=== PATIENT | female | born 1975 | race Caucasian/White ===

== ENCOUNTER → 2017-04-03 | Outpatient (CLI) | payer OTHER ==
[~2017-04-03] MED LIST: CHOL2000 PO; CIPR500T4 PO; CYAN250010 PO; DOCU-238 PO; EST.625T PO; EST30C VG; ESTR0.62 PO; FERR-84 PO; HYDR-3816 PO; MECL-124 PO; METR500T21 PO; OMEP20CA12 PO; ONDA8TAB13 PO; PARO20TA5 PO; PAXIL; PRM25T PO; RT-ALBUINH IH
--- NOTE | 2017-04-06 18:46 | Diagnostic Imaging Report ---
Bilateral screening mammogram. The current study was also evaluated with a Computer Aided Detection (CAD) system. INDICATION: Screening. No current complaints stated on the questionnaire. COMPARISON: 04/16/15 FINDINGS: The breasts are composed of scattered fibroglandular densities. There is no mass, architectural distortion or suspicious cluster of calcification. Allowing for technique and positional differences, no suspicious change is seen. IMPRESSION: No significant change. ACR BI-RADS Category 2: Benign findings. Result letter will be mailed to the patient. Note: At least 10% of breast cancer is not imaged by mammography. Dictated by: Dictated on workstation # [id number]
== END ==
LOC: RAD 11:22
PROVIDERS: ATTEND Nurse Practitioner Family
DX: Z12.31 Encounter for screening mammogram for malignant neoplasm of breast (principal)
CPT/HCPCS: 77067

== ENCOUNTER 2018-04-09 18:41 | Observation (INO) | payer SELFPAY ==
[~2018-04-09] VITALS: Ht 170.2 cm; Wt 81.4 kg
[~2018-04-09 18:41] MED LIST changes: +HYDR-34 PO; -HYDR-3816 PO
--- OUTSIDE RECORDS SUMMARY | 2018-04-09 18:46 | XMS REPORT ---
Author NYLA Murillo [facility] eClinicalWorks Address Unknown Phone Unavailable Care Team Providers Care Space Technologist Name Role Phone NYLA BROWN CP Unavailable Allergies, Adverse Reactions, Alerts Substance Reaction Event Type N.K.D.A. Info Not Available Non Drug Allergy Problems Problem Type Condition Code Onset Dates Condition Status Problem Difficulty sleeping 780.50 Active Problem Chest tightness 786.59 Active Problem Abnormal glucose measurement 790.29 Active Problem Posttraumatic stress disorder 309.81 Active Assessment Bronchitis J40 Active Medications Medication Code System Code Instructions Start Date End Date Status Dosage Zithromax Z-Sergei [facility] [address]-03 250 MG Orally Once a day Oct 09, 2015 Oct 14, 2015 2 tablets on the first day, then 1 tablet daily for 4 days Omeprazole [facility] [address]-34 20 MG Orally Once a day April 30, 2015 1 capsule Vitamin D [facility] [address]-84 2000 UNIT Orally Once a day 1 tablet ProAir HFA [facility] [address]-16 108 (90 Base) MCG/ACT Inhalation every 4 hrs prn cough or wheeze Oct 09, 2015 2 puffs as needed Paxil [facility] [address]-52 20 MG Orally Once a day 1 tablet in the morning Vitamin B12 [facility] [address]-02 not defined Stool Softener [facility] [address]-33 100 MG Orally Once a day 1 capsule as needed Iron [facility] [address]90 325 (65 Fe) MG Orally Once a day 1 tablet Premarin [facility] [address]-94 0.625 MG/GM Vaginal April 05, 2015 as directed Procedures Procedure Coding System Code Date Office Visit, Est Pt., Level 3 CPT-4 46213 Oct 09, 2015 SOLUMEDROL (UP TO 125 MG) CPT-4 J2930 Oct 09, 2015 MEASURE BLOOD OXYGEN LEVEL CPT-4 61189 Oct 09, 2015 THER/PROPH/DIAG INJ, SC/IM CPT-4 16974 Oct 09, 2015 Vital Signs Date/Time: Oct 09, 2015 Temperature 97.6 F Weight 190 lbs Height 57 in Oximetry 99 % Blood Pressure Diastolic 80 mmHg Blood Pressure Systolic 118 mmHg Cardiac Monitoring Heart Rate 76 bpm BMI 41.11 Index Results No Known Results Summary Purpose eClinicalWorks Submission
--- OUTSIDE RECORDS SUMMARY | 2018-04-09 18:46 | XMS REPORT ---
Author Author TRAVIS HUIZAR [facility] eClinicalWorks Address Unknown Phone Unavailable Care Team Providers Care Infrastructure Consultant Name Role Phone TRAVIS HUIZAR CP Unavailable Allergies No Known Allergies Problems Problem Type Condition Code Onset Dates Condition Status Problem Difficulty sleeping 780.50 Active Problem Chest tightness 786.59 Active Problem Abnormal glucose measurement 790.29 Active Problem Posttraumatic stress disorder 309.81 Active Medications No Known Medications Results No Known Results Summary Purpose eClinicalWorks Submission
--- OUTSIDE RECORDS SUMMARY | 2018-04-09 18:46 | XMS REPORT ---
Author Author KAYLA CURTIS [facility] eClinicalWorks Address Unknown Phone Unavailable Care Team Providers Care Gun Numberer Name Role Phone KAYLA CURTIS CP Unavailable Allergies, Adverse Reactions, Alerts Substance Reaction Event Type N.K.D.A. Info Not Available Non Drug Allergy Problems Problem Type Condition Code Onset Dates Condition Status Problem Difficulty sleeping 780.50 Active Problem Chest tightness 786.59 Active Problem Abnormal glucose measurement 790.29 Active Problem Posttraumatic stress disorder 309.81 Active Assessment Dental examination Z01.20 Active Medications Medication Code System Code Instructions Start Date End Date Status Dosage Vitamin B12 [facility] [address]-50 not defined Paxil [facility] [address]-70 20 MG Orally Once a day 1 tablet in the morning Stool Softener [facility] [address]-14 100 MG Orally Once a day 1 capsule as needed Iron [facility] [address]87 325 (65 Fe) MG Orally Once a day 1 tablet Vitamin D [facility] [address]-15 2000 UNIT Orally Once a day 1 tablet Premarin [facility] [address]-02 0.625 MG/GM Vaginal April 05, 2015 as directed Procedures Procedure Coding System Code Date COMP ORAL EVALUATION - NEW/EST PT CPT-4 D0150 Sep 03, 2015 Vital Signs Date/Time: Sep 03, 2015 Blood Pressure Diastolic 78 mmHg Blood Pressure Systolic 119 mmHg Height 57 in Results No Known Results Summary Purpose eClinicalWorks Submission
--- OUTSIDE RECORDS SUMMARY | 2018-04-09 18:46 | XMS REPORT ---
Author Author TRAVIS HUIZAR [facility] eClinicalWorks Address Unknown Phone Unavailable Care Team Providers Care Broom Man Name Role Phone TRAVIS HUIZAR Unavailable Allergies, Adverse Reactions, Alerts Substance Reaction Event Type N.K.D.A. Info Not Available Non Drug Allergy Problems Problem Type Condition Code Onset Dates Condition Status Assessment Myalgia M79.1 Active Assessment Migraine without status migrainosus, not intractable, unspecified migraine type G43.909 Active Problem Dysthymia F34.1 Active Problem Post-menopausal Z78.0 Active Problem Migraine without status migrainosus, not intractable, unspecified migraine type G43.909 Active Problem Myalgia M79.1 Active Assessment Arthralgia, unspecified joint M25.50 Active Problem History of anemia Z86.2 Active Problem Arthralgia, unspecified joint M25.50 Active Medications Medication Code System Code Instructions Start Date End Date Status Dosage Paxil [facility] [address]-01 20 mg Orally Once a day 1 tablet in the morning Premarin [facility] [address]-41 0.625 MG/GM Vaginal as directed Iron [facility] [address]42-[address]15 325 (65 Fe) MG Orally Once a day 1 tablet Vitamin D [facility] [address]-72 2000 UNIT Orally Once a day 2 tablet Stool Softener [facility] [address]-24 100 MG Orally Once a day 1 capsule as needed Vitamin B12 [facility] [address]-57 not defined Zofran [facility] [address]-55 8 MG Orally every 8 hours prn nausea Jun 24, 2016 1 tablet Baclofen [facility] [address]-01 20 MG Orally 3 times a day Jul 22, 2016 1 tablet with food or milk as needed Procedures Procedure Coding System Code Date TORADOL (IM) 60 MG/2ML (UP TO 15 MG) CPT-4 J1885 Jun 24, 2016 THER/PROPH/DIAG INJ, SC/IM CPT-4 03938 Jun 24, 2016 Office Visit, Est Pt., Level 5 CPT-4 42793 Jun 24, 2016 Vital Signs Date/Time: Jun 24, 2016 Cardiac Monitoring Heart Rate 74 bpm Weight 188.9 lbs Height 57 in BMI 40.87 Index Blood Pressure Diastolic 84 mmHg Blood Pressure Systolic 132 mmHg Results No Known Results Summary Purpose eClinicalWorks Submission
--- OUTSIDE RECORDS SUMMARY | 2018-04-09 18:46 | XMS REPORT ---
Author Author TRAVIS HUIZAR [facility] Address [address] [place] [address] Care Team Providers Care Nuclear Security Officer Name Role Phone TRAVIS HUIZAR Unavailable PROBLEMS Type Condition ICD9-CM Code [id number] Code Onset Dates Condition Status SNOMED Code Problem Post-menopausal Z78.0 Active 97593693 Problem Vaginal dryness, menopausal N95.1 Active 22818150 Problem Migraine without status migrainosus, not intractable, unspecified migraine type G43.909 Active 38358251 Problem Dysthymia F34.1 Active 19121288 Problem Arthralgia, unspecified joint M25.50 Active 96148524 Problem History of anemia Z86.2 Active 549670990 Problem Myalgia M79.1 Active 88358187 ALLERGIES No Information SOCIAL HISTORY Never Assessed PLAN OF CARE VITAL SIGNS MEDICATIONS Medication Instructions Dosage Frequency Start Date End Date Duration Status Paxil 20 mg Orally Once a day 1 tablet in the morning 24h 22 days Active Amitriptyline HCl 25 MG Orally Once a day 1 tablet 24h 06 Jul, 2016 22 days Active RESULTS No Results PROCEDURES No Known procedures IMMUNIZATIONS No Known Immunizations MEDICAL (GENERAL) HISTORY Type Description Date Medical History PTSD Medical History anxiety Medical History mood disorder Medical History adjustment disorder Medical History diverticulosis Medical History iron deficiency anemia Medical History back pain Medical History Posttraumatic stress disorder Medical History Abnormal glucose measurement Surgical History hysterectomy 2006 Surgical History bowel surgery- cecoectomy 1993 Surgical History left knee arthroscopy
--- OUTSIDE RECORDS SUMMARY | 2018-04-09 18:47 | XMS REPORT ---
Author Author TRAVIS HUIZAR Organization eClinicalWorks Address Unknown Phone Unavailable Care Team Providers Care Vendor Quality Supervisor Name Role Phone TRAVIS HUIZAR CP Unavailable Allergies No Known Allergies Problems Problem Type Condition Code Onset Dates Condition Status Problem Post-menopausal Z78.0 Active Problem History of anemia Z86.2 Active Problem Dysthymia F34.1 Active Problem Arthralgia, unspecified joint M25.50 Active Problem Myalgia M79.1 Active Medications Medication Code System Code Instructions Start Date End Date Status Dosage Baclofen [facility] [address]-99 10 mg Orally 2 times a day Jun 05, 2016 1 tablet with food or milk as needed Results No Known Results Summary Purpose eClinicalWorks Submission
--- OUTSIDE RECORDS SUMMARY | 2018-04-09 18:47 | XMS REPORT ---
Author Author JON VELIZ [facility] Address [address] [place] [address] Care Team Providers Care Septic Tank Servicer Name Role Phone JON VELIZ Unavailable PROBLEMS Type Condition ICD9-CM Code [id number] Code Onset Dates Condition Status SNOMED Code Problem Post-menopausal Z78.0 Active 19795152 Problem Vaginal dryness, menopausal N95.1 Active 70315010 Problem Migraine without status migrainosus, not intractable, unspecified migraine type G43.909 Active 63918159 Problem Dysthymia F34.1 Active 84759299 Problem Arthralgia, unspecified joint M25.50 Active 04137076 Problem History of anemia Z86.2 Active 561579592 Problem Myalgia M79.1 Active 30578385 ALLERGIES No Known Allergies SOCIAL HISTORY Never Assessed PLAN OF CARE VITAL SIGNS Height 57 in 2017-03-18 Weight 189.6 lbs 2017-03-18 Temperature 96.6 degrees Fahrenheit 2017-03-18 Heart Rate 80 bpm 2017-03-18 Respiratory Rate 20 2017-03-18 BMI 41.02 kg/m2 2017-03-18 Blood pressure systolic 120 mmHg 2017-03-18 Blood pressure diastolic 80 mmHg 2017-03-18 MEDICATIONS Medication Instructions Dosage Frequency Start Date End Date Duration Status Baclofen 20 MG Orally every 8 hrs 1 tablet with food or milk 8h Active Vitamin B12 Active Vitamin D 2000 UNIT Orally Once a day 2 tablet 24h Active Premarin 0.625 MG/GM Vaginal 2-3 times a week administer 1 gram to vaginal mucosa Active Amoxicillin 500 mg Orally 3 times a day 1 capsule 8h March, March, 10 day(s) Active Amitriptyline HCl 25 MG Orally Once a day 1 tablet 24h Jul, 30 day(s) Active Stool Softener 100 MG Orally Once a day 1 capsule as needed 24h Active Iron 325 (65 Fe) MG Orally Once a day 1 tablet 24h Active Paxil 20 mg Orally Once a day 1 tablet in the morning 24h Active ProAir HFA 108 (90 Base) MCG/ACT Inhalation every 4 hrs 2 puffs as needed 4h Nov, 5 days Active RESULTS No Results PROCEDURES No Known procedures IMMUNIZATIONS No Known Immunizations MEDICAL (GENERAL) HISTORY Type Description Date Medical History PTSD Medical History anxiety Medical History mood disorder Medical History adjustment disorder Medical History diverticulosis Medical History iron deficiency anemia Medical History back pain Medical History Posttraumatic stress disorder Medical History Abnormal glucose measurement Surgical History hysterectomy 2005 Surgical History bowel surgery- cecoectomy 1993 Surgical History left knee arthroscopy
--- OUTSIDE RECORDS SUMMARY | 2018-04-09 18:47 | XMS REPORT ---
Author Author TRAVIS HUIZAR [facility] eClinicalWorks Address Unknown Phone Unavailable Care Team Providers Care Dinkey Skinner Name Role Phone TRAVIS HUIZAR CP Unavailable Allergies, Adverse Reactions, Alerts Substance Reaction Event Type N.K.D.A. Info Not Available Non Drug Allergy Problems Problem Type Condition Code Onset Dates Condition Status Assessment Myalgia M79.1 Active Problem Post-menopausal Z78.0 Active Problem History of anemia Z86.2 Active Problem Dysthymia F34.1 Active Assessment Post-menopausal Z78.0 Active Assessment Arthralgia, unspecified joint M25.50 Active Problem Arthralgia, unspecified joint M25.50 Active Problem Myalgia M79.1 Active Medications Medication Code System Code Instructions Start Date End Date Status Dosage Iron [facility] [address] 325 (65 Fe) MG Orally Once a day 1 tablet Stool Softener [facility] [address]-92 100 MG Orally Once a day 1 capsule as needed Vitamin B12 [facility] [address]-98 not defined Premarin [facility] [address]-48 0.625 MG/GM Vaginal as directed Baclofen [facility] [address]-12 10 mg Orally 3 times a day Jun 25, 2016 1 tablet with food or milk as needed Paxil [facility] [address]-13 20 mg Orally Once a day 1 tablet in the morning Vitamin D [facility] [address]-71 2000 UNIT Orally Once a day 2 tablet Procedures Procedure Coding System Code Date Office Visit, Est Pt., Level 3 CPT-4 59357 Jun 10, 2016 Vital Signs Date/Time: Jun 10, 2016 Cardiac Monitoring Heart Rate 72 bpm Weight 192.5 lbs Height 57 in BMI 41.65 Index Blood Pressure Diastolic 85 mmHg Blood Pressure Systolic 131 mmHg Results No Known Results Summary Purpose eClinicalWorks Submission
--- OUTSIDE RECORDS SUMMARY | 2018-04-09 18:47 | XMS REPORT ---
Author ARTURO Yi [facility] eClinicalWorks Address Unknown Phone Unavailable Care Team Providers Care Network Security Analyst Name Role Phone ARTURO BECKFORD CP Unavailable Allergies No Known Allergies Problems Problem Type Condition Code Onset Dates Condition Status Problem Difficulty sleeping 780.50 Active Problem Chest tightness 786.59 Active Problem Abnormal glucose measurement 790.29 Active Problem Posttraumatic stress disorder 309.81 Active Medications Medication Code System Code Instructions Start Date End Date Status Dosage Premarin [facility] [address]-53 0.625 MG/GM Vaginal April 05, 2015 as directed Results No Known Results Summary Purpose eClinicalWorks Submission
--- OUTSIDE RECORDS SUMMARY | 2018-04-09 18:47 | XMS REPORT ---
Author Author TRAVIS HUIZAR Organization [facility] Address [address] [place] [address] Care Team Providers Care Associate Technician Name Role Phone TRAVIS HUIZAR Unavailable PROBLEMS Type Condition ICD9-CM Code [id number] Code Onset Dates Condition Status SNOMED Code Problem Myalgia M79.1 Active 14928360 Problem Vaginal dryness, menopausal N95.1 Active 19038336 Problem Migraine without status migrainosus, not intractable, unspecified migraine type G43.909 Active 19717611 Problem History of anemia Z86.2 Active 024456340 Problem Arthralgia, unspecified joint M25.50 Active 58948991 Problem Dysthymia F34.1 Active 13103171 Problem Post-menopausal Z78.0 Active 58703315 ALLERGIES Substance Reaction Event Type Date Status N.K.D.A. Unknown Non Drug Allergy Oct, Unknown SOCIAL HISTORY No smoking Hx information available PLAN OF CARE Activity Details Follow Up 6 months for [facility], annual well woman exam Reason: VITAL SIGNS Height 57 in 2016-10-29 Weight 190 lbs 2016-10-29 Temperature 97.9 degrees Fahrenheit 2016-10-29 Heart Rate 80 bpm 2016-10-29 Respiratory Rate 16 2016-10-29 BMI 41.11 kg/m2 2016-10-29 Blood pressure systolic 112 mmHg 2016-10-29 Blood pressure diastolic 70 mmHg 2016-10-29 MEDICATIONS Medication Instructions Dosage Frequency Start Date End Date Duration Status Iron 325 (65 Fe) MG Orally Once a day 1 tablet 24h Active Vitamin D 2000 UNIT Orally Once a day 2 tablet 24h Active Premarin 0.625 MG/GM Vaginal 2-3 times a week administer 1 gram to vaginal mucosa Active Amitriptyline HCl 25 MG Orally Once a day 1 tablet 24h Jul, 30 day(s) Active Stool Softener 100 MG Orally Once a day 1 capsule as needed 24h Active Vitamin B12 Active Baclofen 20 MG Orally every 8 hrs 1 tablet with food or milk 8h Active Paxil 20 mg Orally Once a day 1 tablet in the morning 24h Active RESULTS Name Result Date Reference Range LIPID PANEL 2016-10-29 Cholesterol, Total 221 100-199 Triglycerides 125 0-149 HDL Cholesterol 86 >39 VLDL Cholesterol Eric 25 5-40 LDL Cholesterol Calc 110 0-99 Comment: CMP 2016-10-29 Glucose, Serum 90 65-99 BUN 17 6-24 Creatinine, Serum 0.79 0.57-1.00 eGFR If NonAfricn Am 93 >59 eGFR If Africn Am 107 >59 BUN/Creatinine Ratio 22 9-23 Sodium, Serum 141 134-144 Potassium, Serum 4.8 3.5-5.2 Chloride, Serum 100 96-106 Carbon Dioxide, Total 27 18-29 Calcium, Serum 10.0 8.7-10.2 Protein, Total, Serum 6.8 6.0-8.5 Albumin, Serum 4.5 3.5-5.5 Globulin, Total 2.3 1.5-4.5 A/G Ratio 2.0 1.1-2.5 Bilirubin, Total <0.2 0.0-1.2 Alkaline Phosphatase, S 81 39-117 AST (SGOT) 17 0-40 ALT (SGPT) 16 0-32 Mammogram, Bilateral Screening 2016-11-06 PROCEDURES Procedure Date Ordered Related Diagnosis Body Site LIPID PANEL Oct 29, 2016 COMPREHEN METABOLIC PANEL Oct 29, 2016 Office Visit, Est Pt., Level 3 Oct 29, 2016 TDAP (BOOSTRIX) Oct 29, 2016 VENIPUNCT, ROUTINE* Oct 29, 2016 Preventive Care Est Pt. Age 40-64 Oct 29, 2016 SINGLE IMMUNIZATION ADMIN Oct 29, 2016 IMMUNIZATIONS Vaccine Route Administration Date Status TDAP (BOOSTRIX) IM Intramuscular Oct 29, 2016 Administered
--- OUTSIDE RECORDS SUMMARY | 2018-04-09 18:47 | XMS REPORT ---
Author Author TRAVIS HUIZAR [facility] Address [address] [place] [address] Care Team Providers Care Glaze Handler Name Role Phone TRAVIS HUIZAR Unavailable PROBLEMS Type Condition ICD9-CM Code [id number] Code Onset Dates Condition Status SNOMED Code Problem Myalgia M79.1 Active 51891397 Problem Vaginal dryness, menopausal N95.1 Active 32283661 Problem Migraine without status migrainosus, not intractable, unspecified migraine type G43.909 Active 71745821 Problem History of anemia Z86.2 Active 457594995 Problem Arthralgia, unspecified joint M25.50 Active 23931213 Problem Dysthymia F34.1 Active 40403250 Problem Post-menopausal Z78.0 Active 46799579 ALLERGIES Unknown Allergies SOCIAL HISTORY No smoking Hx information available PLAN OF CARE VITAL SIGNS MEDICATIONS Unknown Medications RESULTS No Results PROCEDURES No Known procedures IMMUNIZATIONS No Known Immunizations
--- OUTSIDE RECORDS SUMMARY | 2018-04-09 18:47 | XMS REPORT ---
Author Author DANNY LEA [facility] eClinicalWorks Address Unknown Phone Unavailable Care Team Providers Care Certified Breastfeeding Educator Name Role Phone DANNY LEA CP Unavailable Allergies, Adverse Reactions, Alerts Substance Reaction Event Type N.K.D.A. Info Not Available Non Drug Allergy Problems Problem Type Condition Code Onset Dates Condition Status Problem Difficulty sleeping 780.50 Active Problem Chest tightness 786.59 Active Problem Abnormal glucose measurement 790.29 Active Problem Posttraumatic stress disorder 309.81 Active Assessment Encounter for dental examination Z01.20 Active Medications Medication Code System Code Instructions Start Date End Date Status Dosage Vitamin D [facility] [address]-80 2000 UNIT Orally Once a day 1 tablet Vitamin B12 [facility] [address]-92 not defined Premarin [facility] [address]-98 0.625 MG/GM Vaginal April 05, 2015 as directed Iron [facility] [address] 325 (65 Fe) MG Orally Once a day 1 tablet Stool Softener [facility] [address]-90 100 MG Orally Once a day 1 capsule as needed Paxil [facility] [address]-47 20 MG Orally Once a day 1 tablet in the morning Procedures Procedure Coding System Code Date INTRAORL-PERIAPICAL EA ADD FILM CPT-4 D0230 Aug 31, 2015 INTRAORL-PERIAPICAL EA ADD FILM CPT-4 D0230 Aug 31, 2015 INTRAORL-PERIAPICAL 1 FILM 83865 CPT-4 D0220 Aug 31, 2015 PANORAMIC FILM SEE ALSO CODE 87470 CPT-4 D0330 Aug 31, 2015 BITEWINGS - FOUR FILMS CPT-4 D0274 Aug 31, 2015 TOPICAL FLUORIDE VARNISH CPT-4 D1206 Aug 31, 2015 PROPHYLAXIS - ADULT CPT-4 D1110 Aug 31, 2015 Vital Signs Date/Time: Aug 31, 2015 Blood Pressure Diastolic 77 mmHg Blood Pressure Systolic 117 mmHg Results No Known Results Summary Purpose eClinicalWorks Submission
--- OUTSIDE RECORDS SUMMARY | 2018-04-09 18:47 | XMS REPORT ---
Author Author JON VELIZ Organization [facility] Address [address] [place] [address] Care Team Providers Care Marine Operations Coordinator Name Role Phone JON VELIZ Unavailable PROBLEMS Type Condition ICD9-CM Code [id number] Code Onset Dates Condition Status SNOMED Code Problem Post-menopausal Z78.0 Active 68088286 Problem Vaginal dryness, menopausal N95.1 Active 58790474 Problem Migraine without status migrainosus, not intractable, unspecified migraine type G43.909 Active 25665979 Problem Dysthymia F34.1 Active 19788234 Problem Arthralgia, unspecified joint M25.50 Active 90671231 Problem History of anemia Z86.2 Active 093914877 Problem Myalgia M79.1 Active 35123527 ALLERGIES No Known Allergies ENCOUNTERS Encounter Location Date Diagnosis [facility] [address] [address] Jan, [facility] [address] [address] Dec, Encounter for immunization Z23 [facility] [address] [place] [id number] [place] [address] Nov, Chondromalacia, right knee M94.261 [facility] [address] [id number] Nov, Encounter for dental examination Z01.20 [facility] [address] [address] Sep, Right anterior knee pain M25.561 and BMI 40.0-44.9, adult Z68.41 [facility] [id number] [place] [address] Apr, [facility] [place] [id number] [place] [address] 20 Apr, 2017 Skin tag L91.[address] [address] 15 Apr, 2017 Arthralgia, unspecified joint M25.50 ; Myalgia M79.1 ; Dysthymia F34.1 ; Post-menopausal Z78.0 and Tick bite, subsequent encounter W57.XXXD [address] [address] March, Myalgia M79.1 [facility] [address] [address] March, Pharyngitis due to other organism J02.8 [facility] [address] [address] Nov, Acute bronchitis, unspecified organism J20.9 [facility] [address] [address] Nov, Sore throat J02.[address] [address] Oct, [address] [address] Oct, Post-menopausal Z78.0 ; Vaginal dryness, menopausal N95.1 ; General medical exam Z00.00 ; Screening for breast cancer Z12.39 ; Benign skin lesion of lower back L98.9 ; Encounter for immunization Z23 and Routine gynecological examination Z01.[address] [address] Oct, [facility] [address] [address] Aug, Acute non-recurrent maxillary sinusitis J01.[address] [address] Jul, Myalgia M79.1 [facility] [id number] [place] [address] Jun, Arthralgia, unspecified joint M25.50 ; Myalgia M79.1 and Migraine without status migrainosus, not intractable, unspecified migraine type G43.909 [place] [address] [place] [id number] [place] [address] Jun, Arthralgia, unspecified joint M25.50 and Myalgia M79.1 [place] [address] [address] Jun, [place] [address] [address] Jun, Post-menopausal Z78.0 ; Arthralgia, unspecified joint M25.50 and Myalgia M79.1 [place] [address] [place] [id number] [place] [address] Jun, [place] [address] [place] [address] [id number] [place] [address] May, Dysthymia F34.1 ; Post-menopausal Z78.0 ; History of anemia Z86.2 ; Arthralgia, unspecified joint M25.50 and Myalgia M79.1 [facility] [id number] [place] [address] Apr, Low back pain M54.5 [place] [address] [place] [address] [id number] [place] [address] March, Lower abdominal pain R10.30 and Dysuria R30.0 [place] [address] [place] [address] [id number] [place] [address] Dec, [facility] [id number] [place] [address] Oct, Bronchitis J40 [place] [address] [place] [address] Sep, [facility] [id number] [place] [id number] Sep, Dental examination Z01.20 [facility] [id number] [place] [id number] Aug, Encounter for dental examination Z01.20 [facility] [address] [address] May, 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 [facility] [address] [address] May, [facility] [address] [id number]- [address] Apr, Abnormal glucose measurement 790.29 ; Difficulty sleeping 780.50 and Chest tightness 786.59 [place] [address] [address] Apr, Routine gynecological examination V72.31 ; Breast cancer screening V76.10 and Postmenopausal atrophic vaginitis 627.3 [place] [address] [place] [address] [id number] [place] [address] March, [facility] [address] [id number] [place] [address] March, Anemia 285.9 ; Cough 786.2 ; Snoring 786.09 ; Fatigue 780.79 and Upper respiratory infection 465.9 [facility] [id number] [place] [address] Dec, [facility] [address] [address] Dec, [facility] [address] [id number] Dec, [facility] [address] [address] Dec, [facility] [address] [facility] [id number] [address] 14 Oct, 2010 [facility] [address] [id number] [address] Oct, [facility] [address] [address] Oct, [facility] [address] [address] Sep, [facility] [address] [id number] [address] Sep, [facility] [address] [address] Sep, [facility] [address] [id number] [address] Aug, IMMUNIZATIONS No Known Immunizations SOCIAL HISTORY Never Assessed REASON FOR VISIT Lesion removal - Jaxon SLADE PLAN OF CARE VITAL SIGNS Height 57 in 2017-04-21 Weight 192.9 lbs 2017-04-21 Temperature 98.0 degrees Fahrenheit 2017-04-21 Heart Rate 80 bpm 2017-04-21 Respiratory Rate 18 2017-04-21 BMI 41.74 kg/m2 2017-04-21 Blood pressure systolic 120 mmHg 2017-04-21 Blood pressure diastolic 82 mmHg 2017-04-21 MEDICATIONS Medication Instructions Dosage Frequency Start Date End Date Duration Status Iron 325 (65 Fe) MG Orally Once a day 1 tablet 24h Active Vitamin D 2000 UNIT Orally Once a day 2 tablet 24h Active Vitamin B12 Active Paxil 20 mg Orally Once a day 1 tablet in the morning 24h 30 days Active Stool Softener 100 MG Orally Once a day 1 capsule as needed 24h Active Baclofen 20 mg Orally every 8 hrs 1 tablet with food or milk 8h Active Premarin 0.625 MG/GM Vaginal 2-3 times a week administer 1 gram to vaginal mucosa Active ProAir HFA 108 (90 Base) MCG/ACT Inhalation every 4 hrs 2 puffs as needed 4h Nov, 5 days Active Amitriptyline HCl 25 MG Orally Once a day 1 tablet 24h Jul, 30 days Active RESULTS No Results PROCEDURES Procedure Date Ordered Result Body Site SKIN TAG REM 1-15 2017-04-21 N/A REMOVAL OF SKIN TAGS April 21, 2017 INSTRUCTIONS MEDICATIONS ADMINISTERED No Known Medications MEDICAL (GENERAL) HISTORY Type Description Date Medical History PTSD Medical History anxiety Medical History mood disorder Medical History adjustment disorder Medical History diverticulosis Medical History iron deficiency anemia Medical History back pain Medical History Abnormal glucose measurement Surgical History hysterectomy 2006 Surgical History bowel surgery- cecoectomy 1993 Surgical History left knee arthroscopy
--- OUTSIDE RECORDS SUMMARY | 2018-04-09 18:48 | XMS REPORT ---
Author Author JON VELIZ [facility] Address [address] [place] [address] Care Team Providers Care Unit Tender Name Role Phone JON VELIZ Unavailable PROBLEMS Type Condition ICD9-CM Code [id number] Code Onset Dates Condition Status SNOMED Code Problem Post-menopausal Z78.0 Active 56064568 Problem Vaginal dryness, menopausal N95.1 Active 34377811 Problem Migraine without status migrainosus, not intractable, unspecified migraine type G43.909 Active 69368977 Problem Dysthymia F34.1 Active 95932850 Problem Arthralgia, unspecified joint M25.50 Active 17881444 Problem History of anemia Z86.2 Active 705755363 Problem Myalgia M79.1 Active 25653484 ALLERGIES Substance Reaction Event Type Date Status N.K.D.A. Unknown Non Drug Allergy Nov, Unknown SOCIAL HISTORY No smoking Hx information available PLAN OF CARE VITAL SIGNS Height 57 in 2016-11-19 Weight 190.4 lbs 2016-11-19 Temperature 97.4 degrees Fahrenheit 2016-11-19 Heart Rate 84 bpm 2016-11-19 Respiratory Rate 18 2016-11-19 BMI 41.20 kg/m2 2016-11-19 Blood pressure systolic 118 mmHg 2016-11-19 Blood pressure diastolic 76 mmHg 2016-11-19 MEDICATIONS Medication Instructions Dosage Frequency Start Date End Date Duration Status Baclofen 20 MG Orally every 8 hrs 1 tablet with food or milk 8h Active Amitriptyline HCl 25 MG Orally Once a day 1 tablet 24h Jul, 30 day(s) Active Vitamin B12 Active Premarin 0.625 MG/GM Vaginal 2-3 times a week administer 1 gram to vaginal mucosa Active Vitamin D 2000 UNIT Orally Once a day 2 tablet 24h Active Stool Softener 100 MG Orally Once a day 1 capsule as needed 24h Active Paxil 20 mg Orally Once a day 1 tablet in the morning 24h Active Iron 325 (65 Fe) MG Orally Once a day 1 tablet 24h Active PredniSONE 20 mg Orally Once a day 2 tablets 24h 18 Devan, 2017 23 Devan, 2017 05 days Active Zithromax Z-Sergei 250 MG Orally Once a day 2 tablets on the first day, then 1 tablet daily for 4 days 24h Nov, Nov, 5 day(s) Active RESULTS Name Result Date Reference Range STREP A (IN HOUSE) 2016-11-19 STREP A negative Control + Lot # [id number] Exp date jun 19 PROCEDURES Procedure Date Ordered Related Diagnosis Body Site STREP A ASSAY W/OPTIC Nov 19, 2016 Office Visit, Est Pt., Level 3 Nov 19, 2016 THER/PROPH/DIAG INJ, SC/IM Nov 19, 2016 SOLUMEDROL (UP TO 125 MG) Nov 19, 2016 IMMUNIZATIONS Vaccine Route Administration Date Status SOLUMEDROL (UP TO 125 MG) IM Intramuscular Nov 19, 2016 Administered
--- OUTSIDE RECORDS SUMMARY | 2018-04-09 18:48 | XMS REPORT ---
Author Author TRAVIS HUIZAR [facility] e[employer] Address Unknown Phone Unavailable Care Team Providers Care Community Health Counselor Name Role Phone TRAVIS HUIZAR Unavailable Allergies, Adverse Reactions, Alerts Substance Reaction Event Type N.K.D.A. Info Not Available Non Drug Allergy Problems Problem Type Condition Code Onset Dates Condition Status Assessment Myalgia M79.1 Active Assessment History of anemia Z86.2 Active Assessment Arthralgia, unspecified joint M25.50 Active Problem Post-menopausal Z78.0 Active Problem History of anemia Z86.2 Active Problem Dysthymia F34.1 Active Assessment Dysthymia F34.1 Active Assessment Post-menopausal Z78.0 Active Problem Arthralgia, unspecified joint M25.50 Active Problem Myalgia M79.1 Active Medications Medication Code System Code Instructions Start Date End Date Status Dosage Vitamin B12 [facility] [address]-61 not defined Stool Softener [facility] [address]-91 100 MG Orally Once a day 1 capsule as needed Paxil [facility] [address]-62 20 mg Orally Once a day 1 tablet in the morning Premarin [facility] [address]-15 0.625 MG/GM Vaginal April 05, 2015 as directed Vitamin D [facility] [address]-28 2000 UNIT Orally Once a day 1 tablet Iron [facility] [address]-9[address]90 325 (65 Fe) MG Orally Once a day 1 tablet Procedures Procedure Coding System Code Date RHEUMATOID FACTOR, QUANT CPT-4 54246 May 27, 2016 RBC SED RATE, AUTOMATED CPT-4 47207 May 27, 2016 COMPLETE CBC W/AUTO DIFF WBC CPT-4 77559 May 27, 2016 VENIPUNCT, ROUTINE* CPT-4 69630 May 27, 2016 ANTINUCLEAR ANTIBODIES CPT-4 64211 May 27, 2016 C-REACTIVE PROTEIN CPT-4 94785 May 27, 2016 Office Visit, Est Pt., Level 5 CPT-4 56790 May 27, 2016 ASSAY OF VITAMIN D CPT-4 87697 May 27, 2016 Vital Signs Date/Time: May 27, 2016 Cardiac Monitoring Heart Rate 70 bpm Weight 193.0 lbs Height 57 in Blood Pressure Diastolic 78 mmHg Blood Pressure Systolic 126 mmHg Results No Known Results Summary Purpose eClinicalWorks Submission
--- OUTSIDE RECORDS SUMMARY | 2018-04-09 18:48 | XMS REPORT ---
Author Author ROBERT JOSEPH Organization [facility] Address [address] [place] [address] Care Team Providers Care Bowl Topper Name Role Phone ROBERT JOSEPH Unavailable PROBLEMS Type Condition ICD9-CM Code [id number] Code Onset Dates Condition Status SNOMED Code Problem Post-menopausal Z78.0 Active 12043566 Problem Vaginal dryness, menopausal N95.1 Active 07789410 Problem Migraine without status migrainosus, not intractable, unspecified migraine type G43.909 Active 48218220 Problem Dysthymia F34.1 Active 10084343 Problem Arthralgia, unspecified joint M25.50 Active 61773927 Problem History of anemia Z86.2 Active 067122569 Problem Myalgia M79.1 Active 26638330 ALLERGIES Substance Reaction Event Type Date Status N.K.D.A. Unknown Non Drug Allergy Nov, Unknown SOCIAL HISTORY No smoking Hx information available PLAN OF CARE Activity Details Follow Up prn Reason: VITAL SIGNS Height 57 in 2016-11-21 Weight 188.6 lbs 2016-11-21 Temperature 97.2 degrees Fahrenheit 2016-11-21 Heart Rate 80 bpm 2016-11-21 Respiratory Rate 18 2016-11-21 Oximetry 98 % 2016-11-21 BMI 40.81 kg/m2 2016-11-21 Blood pressure systolic 114 mmHg 2016-11-21 Blood pressure diastolic 72 mmHg 2016-11-21 MEDICATIONS Medication Instructions Dosage Frequency Start Date End Date Duration Status Premarin 0.625 MG/GM Vaginal 2-3 times a week administer 1 gram to vaginal mucosa Active Amitriptyline HCl 25 MG Orally Once a day 1 tablet 24h Jul, 30 day(s) Active Paxil 20 mg Orally Once a day 1 tablet in the morning 24h Active Vitamin B12 Active PredniSONE 20 mg Orally Once a day 2 tablets 24h Nov, Nov, 05 days Active Stool Softener 100 MG Orally Once a day 1 capsule as needed 24h Active Vitamin D 2000 UNIT Orally Once a day 2 tablet 24h Active Baclofen 20 MG Orally every 8 hrs 1 tablet with food or milk 8h Active Zithromax Z-Sergei 250 MG Orally Once a day 2 tablets on the first day, then 1 tablet daily for 4 days 24h Nov, Nov, 5 day(s) Active Iron 325 (65 Fe) MG Orally Once a day 1 tablet 24h Active Benzonatate 200 MG Orally Three times a day as needed 1 capsule Nov, Nov, 7 days Active ProAir HFA 108 (90 Base) MCG/ACT Inhalation every 4 hrs 2 puffs as needed 4h Nov, 5 days Active RESULTS No Results PROCEDURES Procedure Date Ordered Related Diagnosis Body Site MEASURE BLOOD OXYGEN LEVEL Nov 21, 2016 Office Visit, Est Pt., Level 3 Nov 21, 2016 IMMUNIZATIONS No Known Immunizations
--- OUTSIDE RECORDS SUMMARY | 2018-04-09 18:48 | XMS REPORT ---
Author Author TRAVIS HUIZAR Organization [facility] Address [address] [place] [address] Care Team Providers Care Volleyball Commentator Name Role Phone TRAVIS HUIZAR Unavailable PROBLEMS Type Condition ICD9-CM Code WFW58-AM Code Onset Dates Condition Status SNOMED Code Problem Post-menopausal Z78.0 Active 68956618 Problem Myalgia M79.1 Active 34704990 Problem Anxiety F41.9 Active 00591233 Problem Vaginal dryness, menopausal N95.1 Active 82551544 Problem Dysthymia F34.1 Active 06602732 Problem Arthralgia, unspecified joint M25.50 Active 28221978 Problem Migraine without status migrainosus, not intractable, unspecified migraine type G43.909 Active 53117754 Problem History of anemia Z86.2 Active 299897186 ALLERGIES No Known Allergies ENCOUNTERS Encounter Location Date Diagnosis [facility] [address] [address] Jan, Dysthymia F34.1 ; Arthralgia, unspecified joint M25.50 ; Anxiety F41.9 and BMI 40.0-44.9, adult Z68.41 [facility] [id number] [place] [address] Dec, Encounter for immunization Z23 [facility] [id number] [place] [address] Nov, Chondromalacia, right knee M94.261 [facility] [id number] [place] [id number] Nov, Encounter for dental examination Z01.20 [facility] [address] [address] Sep, Right anterior knee pain M25.561 and BMI 40.0-44.9, adult Z68.[address] [address] Apr, [place] [address] [address] Apr, Skin tag L91.[address] [address] 15 Apr, 2017 Arthralgia, unspecified joint M25.50 ; Myalgia M79.1 ; Dysthymia F34.1 ; Post-menopausal Z78.0 and Tick bite, subsequent encounter W57.XXXD [address] [address] March, Myalgia M79.1 [facility] [address] [address] March, Pharyngitis due to other organism J02.8 [facility] [address] [address] Nov, Acute bronchitis, unspecified organism J20.9 [facility] [address] [address] Nov, Sore throat J02.[address] [address] Oct, [address] [address] Oct, Post-menopausal Z78.0 ; Vaginal dryness, menopausal N95.1 ; General medical exam Z00.00 ; Screening for breast cancer Z12.39 ; Benign skin lesion of lower back L98.9 ; Encounter for immunization Z23 and Routine gynecological examination Z01.[address] [address] Oct, [facility] [address] [place] [address] Aug, Acute non-recurrent maxillary sinusitis J01.00 [place] [address] [address] Jul, Myalgia M79.1 [place] [address] [address] Jun, Arthralgia, unspecified joint M25.50 ; Myalgia M79.1 and Migraine without status migrainosus, not intractable, unspecified migraine type G43.909 [place] [address] [address] Jun, Arthralgia, unspecified joint M25.50 and Myalgia M79.1 [place] [address] [address] Jun, [place] [address] [address] Jun, Post-menopausal Z78.0 ; Arthralgia, unspecified joint M25.50 and Myalgia M79.1 [place] [address] [place] [address] [id number] [place] [address] Jun, [place] [address] [place] [address] [id number] [place] [address]- [address] May, Dysthymia F34.1 ; Post-menopausal Z78.0 ; History of anemia Z86.2 ; Arthralgia, unspecified joint M25.50 and Myalgia M79.1 [facility] [id number] [place] [address] Apr, Low back pain M54.5 [place] [address] [address] March, Lower abdominal pain R10.30 and Dysuria R30.0 [place] [address] [address] Dec, [facility] [address] [place] [address] Oct, Bronchitis J40 [facility] [id number] [place] [address] Sep, [facility] [address] [place] [id number] Sep, Dental examination Z01.20 [facility] [address] [id number] Aug, Encounter for dental examination Z01.20 [place] [address] [address] May, [place]'s gland cyst 599.89 [place] [address] [place] [address] [id number] [place] [address] May, [facility] [address] [address] Apr, Abnormal glucose measurement 790.29 ; Difficulty sleeping 780.50 and Chest tightness 786.[address] [address] Apr, Routine gynecological examination V72.31 ; Breast cancer screening V76.10 and Postmenopausal atrophic vaginitis 627.3 [place] [id number] [place] [address] March, [facility] [address] [address] March, Anemia 285.9 ; Cough 786.2 ; Snoring 786.09 ; Fatigue 780.79 and Upper respiratory infection 465.9 [facility] [address] [place] [id number] [place] [address] Dec, [facility] [id number] [place] [address] Dec, [place] [address] [place] [address] 17 Dec, 2014 [facility] [address] Dec, [facility] [address] [address] 14 Oct, 2010 [facility] [address] [address] Oct, [facility] [address] [address] Oct, [facility] [address] [address] Sep, [facility] [address] [address] Sep, [facility] [address] [address] Sep, [facility] [id number] [address] Aug, IMMUNIZATIONS No Known Immunizations SOCIAL HISTORY Never Assessed REASON FOR VISIT knee pain--tcuppettRN, -Right knee pain x 4 months that is constant PLAN OF CARE Activity Details Follow Up prn, pending x-rya Reason:right knee pain VITAL SIGNS Height 57 in 2017-09-30 Weight 203.0 lbs 2017-09-30 Temperature 97.5 degrees Fahrenheit 2017-09-30 Heart Rate 80 bpm 2017-09-30 Respiratory Rate 16 2017-09-30 BMI 43.92 kg/m2 2017-09-30 Blood pressure systolic 118 mmHg 2017-09-30 Blood pressure diastolic 82 mmHg 2017-09-30 MEDICATIONS Medication Instructions Dosage Frequency Start Date End Date Duration Status ProAir HFA 108 (90 Base) MCG/ACT Inhalation every 4 hrs 2 puffs as needed 4h Nov, 5 days Active Stool Softener 100 MG Orally Once a day 1 capsule as needed 24h Active Amitriptyline HCl 25 MG Orally Once a day 1 tablet 24h Jul, 30 days Active Vitamin D 2000 UNIT Orally Once a day 1 tablet 24h Active Paxil 20 mg Orally Once a day 1 tablet in the morning 24h 30 days Active Premarin 0.625 MG/GM Vaginal 2-3 times a week administer 1 gram to vaginal mucosa Active Meloxicam 15 MG Orally Once a day 1 tablet 24h Sep, Dec, 30 day(s) Active Iron 325 (65 Fe) MG Orally Once a day 1 tablet 24h Active RESULTS Name Result Date Reference Range Xray : Knee, Right 3 views (IN HOUSE) 2017-09-30 PROCEDURES Procedure Date Ordered Result Body Site X-RAY EXAM OF KNEE, 3 Sep 30, 2017 INSTRUCTIONS MEDICATIONS ADMINISTERED No Known Medications [...]
--- OUTSIDE RECORDS SUMMARY | 2018-04-09 18:48 | XMS REPORT ---
Author Author TRAVIS HUIZAR [facility] Address [address] [place] [address] Care Team Providers Care Braille Proofreader Name Role Phone TRAVIS HUIZAR Unavailable PROBLEMS Type Condition ICD9-CM Code [id number] Code Onset Dates Condition Status SNOMED Code Problem Migraine without status migrainosus, not intractable, unspecified migraine type G43.909 Active 96723876 Problem Dysthymia F34.1 Active 77270616 Problem Arthralgia, unspecified joint M25.50 Active 23289678 Problem Myalgia M79.1 Active 99801562 Problem Post-menopausal Z78.0 Active 91547537 Problem History of anemia Z86.2 Active 536531670 ALLERGIES Unknown Allergies SOCIAL HISTORY No smoking Hx information available PLAN OF CARE VITAL SIGNS MEDICATIONS Unknown Medications RESULTS No Results PROCEDURES No Known procedures IMMUNIZATIONS No Known Immunizations
--- OUTSIDE RECORDS SUMMARY | 2018-04-09 18:48 | XMS REPORT ---
Author Author TRAVIS HUIZAR Organization [employer] Address Unknown Phone Unavailable Care Team Providers Care [employer] Operations Officer Name Role Phone TRAVIS HUIZAR CP Unavailable Allergies No Known Allergies Problems Problem Type Condition Code Onset Dates Condition Status Problem Post-menopausal Z78.0 Active Problem History of anemia Z86.2 Active Problem Dysthymia F34.1 Active Problem Arthralgia, unspecified joint M25.50 Active Problem Myalgia M79.1 Active Medications Medication Code System Code Instructions Start Date End Date Status Dosage Baclofen [facility] [address]-64 10 mg Orally 3 times a day Sep 10, 2016 1 tablet with food or milk as needed Results No Known Results Summary Purpose [employer] Submission
[2018-04-09] MEDS ORDERED: ONDANSETRON 4 MG (ZOFRAN) ORAL DISSOLVE TAB PO ONE (19:45)
[2018-04-09] MEDS ORDERED: ASPIRIN 81 MG CHEW (CHILDREN'S ASA) PO ONE (19:45)
[2018-04-09] MEDS ORDERED: NITROGLYCERIN 0.4 MG SL TABS BTL 25'S SL PRN (19:45)
[2018-04-09] MEDS ORDERED: NITROGLYCERIN 0.4 MG SL TABS BTL 25'S SL ONE (19:47)
[2018-04-09] MEDS ORDERED: ONDANSETRON 4 MG/2 ML (SDV) Z0FRAN ONE (19:47)
[2018-04-09 20:20] LABS: BASOPHILS % (AUTO) 1 % (0-10); EOSINOPHILS # (AUTO) 0.2 10^3/uL (0.0-0.3); EOSINOPHILS % (AUTO) 3 % (0-10); HEMATOCRIT 40 % (35-52); HEMOGLOBIN 14.7 G/DL (11.5-16.0); LYMPHOCYTES # (AUTO) 2.8 X 10^3 (1.0-4.0); LYMPHOCYTES % (AUTO) 48 % (12-44); MEAN CORPUSCULAR HEMOGLOBIN 33 PG (25-34); MEAN CORPUSCULAR HGB CONC 37 G/DL (32-36); MEAN CORPUSCULAR VOLUME 91 FL (80-99); MEAN PLATELET VOLUME 9.7 FL (7.4-10.4); MONOCYTES # (AUTO) 0.4 X 10^3 (0.0-1.0); MONOCYTES % (AUTO) 7 % (0-12); NEUTROPHILS # (AUTO) 2.4 X 10^3 (1.8-7.8); NEUTROPHILS % (AUTO) 42 % (42-75); PLATELET COUNT 244 10^3/uL (130-400); RED CELL DISTRIBUTION WIDTH 12.2 % (10.0-14.5); WHITE BLOOD COUNT 5.8 10^3/uL (4.3-11.0)
--- NOTE | 2018-04-09 20:30 | Diagnostic Imaging Report ---
INDICATION: Chest pain x3 days. TECHNIQUE: Single view chest 7:26 PM. CORRELATION STUDY: 12/26/2010 FINDINGS: The heart size, mediastinal configuration and pulmonary vascularity are within normal limits. The lungs are clear with no consolidating infiltrate. There is no significant effusion or pneumothorax. IMPRESSION: 1. Stable, negative portable chest. Dictated by: Dictated on workstation # [id number]
[2018-04-09 20:32] LABS: PROTHROMBIN TIME PATIENT 12.9 SEC (12.2-14.7)
[2018-04-09 20:41] LABS: ALANINE AMINOTRANSFERASE 20 U/L (0-55); ALBUMIN 4.5 GM/DL (3.2-4.5); ALKALINE PHOSPHATASE 75 U/L (40-136); AMYLASE 131 U/L (25-125); BILIRUBIN,TOTAL 0.3 MG/DL (0.1-1.0); BUN/CREATININE RATIO 21; CARBON DIOXIDE 24 MMOL/L (21-32); CHLORIDE 104 MMOL/L (98-107); CREATINE KINASE 86 U/L (29-168); CREATININE SERUM 0.92 MG/DL (0.60-1.30); GFR ESTIMATED > 60; GLUCOSE 82 MG/DL (70-105); LIPASE 341 U/L (8-78); MAGNESIUM 2.3 MG/DL (1.8-2.4); POTASSIUM 3.8 MMOL/L (3.6-5.0); SODIUM 139 MMOL/L (135-145); TOTAL PROTEIN 7.2 GM/DL (6.4-8.2)
[2018-04-09] MEDS ORDERED: ACETAMINOPHEN 500 MG TAB (TYLENOL) ONE (20:51)
[2018-04-09] MEDS ORDERED: ACETAMINOPHEN 500 MG TAB (TYLENOL) PO ONE (21:00)
[2018-04-09 21:01] LABS: CREATINE KINASE MB 0.9 NG/ML (<6.6); TSH (THYROID ANALYZER) 1.76 UIU/ML (0.35-4.94)
[2018-04-09] MEDS ORDERED: morphine INJ 10 MG/ML 1ML (SYR OR VIAL) IVP STA (21:10)
[2018-04-09] MEDS ORDERED: CATHETER FLUSH 10 ML SYR IV PRN (21:30)
[2018-04-09] MEDS ORDERED: NS 250 ML (IVPB) BAG IV ONE (21:30)
[2018-04-09] MEDS ORDERED: IOHEXOL 350 MG/ML 150 ML (OMNIPAQUE 350) VIAL IV ONE (21:30)
[2018-04-09] MEDS ORDERED: fentaNYL INJECTION 100 MCG/2 ML AMP IVP STA (22:33)
[2018-04-10] VITALS (12 sets, daily range): BP systolic 88–111; BP diastolic 56–79
[2018-04-10] MEDS ORDERED: ONDANSETRON 4 MG/2 ML (SDV) Z0FRAN ONE (01:41)
[2018-04-10] MEDS ORDERED: D5 1/2 NS W/KCL 20 MEQ/L 1,000 ML IV ONE (01:41)
[2018-04-10] MEDS: D5 1/2 NS W/KCL 20 MEQ/L 1,000 ML IV SCH ×4 (03:17→22:11)
[2018-04-10 04:00] LABS: BASOPHILS % (AUTO) 0 % (0-10); EOSINOPHILS # (AUTO) 0.1 10^3/uL (0.0-0.3); EOSINOPHILS % (AUTO) 2 % (0-10); HEMATOCRIT 39 % (35-52); HEMOGLOBIN 13.5 G/DL (11.5-16.0); LYMPHOCYTES # (AUTO) 2.2 X 10^3 (1.0-4.0); LYMPHOCYTES % (AUTO) 42 % (12-44); MEAN CORPUSCULAR HEMOGLOBIN 32 PG (25-34); MEAN CORPUSCULAR HGB CONC 35 G/DL (32-36); MEAN CORPUSCULAR VOLUME 92 FL (80-99); MEAN PLATELET VOLUME 9.9 FL (7.4-10.4); MONOCYTES # (AUTO) 0.6 X 10^3 (0.0-1.0); MONOCYTES % (AUTO) 12 % (0-12); NEUTROPHILS # (AUTO) 2.4 X 10^3 (1.8-7.8); NEUTROPHILS % (AUTO) 44 % (42-75); PLATELET COUNT 234 10^3/uL (130-400); RED BLOOD COUNT 4.21 10^6/uL (4.35-5.85); RED CELL DISTRIBUTION WIDTH 12.3 % (10.0-14.5); WHITE BLOOD COUNT 5.3 10^3/uL (4.3-11.0)
[2018-04-10] MEDS ORDERED: morphine INJ 4 MG/ML 1 ML (VIAL/SYRINGE) IV PRN (04:15)
[2018-04-10] MEDS ORDERED: NITROGLYCERIN 0.4 MG SL TABS BTL 25'S SL PRN (04:15)
[2018-04-10 04:44] LABS: ALANINE AMINOTRANSFERASE 17 U/L (0-55); ALKALINE PHOSPHATASE 70 U/L (40-136); AMYLASE 530 U/L (25-125); BILIRUBIN,TOTAL 0.4 MG/DL (0.1-1.0); BUN/CREATININE RATIO 20; CALCIUM 9.2 MG/DL (8.5-10.1); CARBON DIOXIDE 23 MMOL/L (21-32); CHLORIDE 105 MMOL/L (98-107); CHOLESTEROL 187 MG/DL (< 200); GFR ESTIMATED > 60; GLUCOSE 116 MG/DL (70-105); HDL CHOLESTEROL 68 MG/DL (40-60); POTASSIUM 3.9 MMOL/L (3.6-5.0); SODIUM 139 MMOL/L (135-145); TOTAL PROTEIN 6.3 GM/DL (6.4-8.2); TRIGLYCERIDES 50 MG/DL (<150); VLDL CHOLESTEROL 10 MG/DL (5-40)
[2018-04-10 05:39] LABS: LIPASE 2702 U/L (8-78)
--- NOTE | 2018-04-10 06:27 | Diagnostic Imaging Report ---
EXAM: CT ERNST CHEST/NOANG ABD-PELV W INDICATION: Chest pain. COMPARISON: Chest radiograph 04/09/2018. CT abdomen and pelvis without contrast 03/20/2016. FINDINGS: Chest: Normal caliber thoracic aorta without evidence of dissection. No pulmonary artery filling defects. Lungs are clear. No pleural effusion or pneumothorax . Normal heart size. No pericardial effusion. No mediastinal, hilar or axillary lymphadenopathy. No acute osseous findings. Abdomen and pelvis: Mild nonspecific prominence of the main pancreatic duct. Cecectomy. The liver, gallbladder, spleen, adrenals, kidneys and collecting systems are unremarkable. Hysterectomy. No free intraperitoneal air or fluid. No evidence of bowel obstruction or inflammation. No lymphadenopathy. No acute osseous findings. IMPRESSION: 1. No thoracic aortic aneurysm or dissection. No pulmonary emboli. 2. Mild nonspecific prominence of the main pancreatic duct measuring approximately 4 mm in diameter. 3. No acute CT findings in the chest, abdomen or pelvis. Dictated by: Dictated on workstation # [id number]
[2018-04-10] MEDS: PANTOPRAZOLE 40 MG/10 ML (PROTONIX) VIAL IV SCH (09:00)
[2018-04-10] MEDS: ASPIRIN E.C. 81 MG (ECOTRIN) TAB PO SCH (09:01)
--- NOTE | 2018-04-10 09:09 | History & Physicial (CHS) ---
HPI History of Present Illness: 42-year-old female admitted during the evening of April 09 following what she describes as chest discomfort and epigastric discomfort. She does go to [facility] and sees Jennifer Moreno there. She does report she was concerned mainly about her heart. This prompted her to come to emergency room at via [facility]. She is currently not with any known cardiac history. She denies any issues regarding gallbladder or stomach. She denies any vomiting although she has been somewhat nauseated on further history. She denies any fever. Source: patient Exam Limitations: no limitations Date seen by provider: Apr 10, 2018 Time Seen by Provider: 07:30 Attending Physician José Rosales MD PCP Marly Moreno Consult Date of Admission Apr 09, 2018 at 22:15 Home Medications Home Medications Reviewed patient Home Medication Reconciliation performed by pharmacy medication reconciliations neurodiagnostic technician and/or nursing. Patients Allergies have been reviewed. Allergies Coded Allergies: NKANo Known Allergies (Verified Allergy, Unknown, 07/22/06) GQT-Tumqsl-Cfbzjr Hx Patient Social History Number of Children: 0 Alcohol Use: Denies Use Recreational Drug Use: No Smoking Status: Current Everyday Smoker Type Used: Electronic/Vapor Recent Foreign Travel: No Contact w/other who traveled: No Recent Infectious Disease Expo: No Physical Abuse Screen: No Sexual Abuse: No Family Medical History Significant Family History: No Pertinent Family Hx Family History: Anxiety disorder 19 MOTHER, Onset:Unknown FH: bipolar disorder 19 MOTHER, Onset:Unknown Review of Systems (CHC) Constitutional: see HPI Reviewed Test Results Reviewed Test Results Lab Laboratory Tests Test 04/09/18 20:02 04/10/18 02:40 Range/Units White Blood Count 5.8 5.3 4.3-11.0 10^3/uL Red Blood Count 4.40 4.21 L 4.35-5.85 10^6/uL Hemoglobin 14.7 13.5 11.5-16.0 G/DL Hematocrit 40 39 35-52 % Mean Corpuscular Volume 91 92 80-99 FL Mean Corpuscular Hemoglobin 33 32 25-34 PG Mean Corpuscular Hemoglobin Concent 37 H 35 32-36 G/DL Red Cell Distribution Width 12.2 12.3 10.0-14.5 % Platelet Count 244 234 130-400 10^3/uL Mean Platelet Volume 9.7 9.9 7.4-10.4 FL Neutrophils (%) (Auto) 42 44 42-75 % Lymphocytes (%) (Auto) 48 H 42 12-44 % Monocytes (%) (Auto) 7 12 0-12 % Eosinophils (%) (Auto) 3 2 0-10 % Basophils (%) (Auto) 1 0 0-10 % Neutrophils # (Auto) 2.4 2.4 1.8-7.8 X 10^3 Lymphocytes # (Auto) 2.8 2.2 1.0-4.0 X 10^3 Monocytes # (Auto) 0.4 0.6 0.0-1.0 X 10^3 Eosinophils # (Auto) 0.2 0.1 0.0-0.3 10^3/uL Basophils # (Auto) 0.0 0.0 0.0-0.1 10^3/uL Prothrombin Time 12.9 12.2-14.7 SEC INR Comment 1.0 0.8-1.4 Activated Partial Thromboplast Time 29 24-35 SEC Sodium Level 139 139 135-145 MMOL/L Potassium Level 3.8 3.9 3.6-5.0 MMOL/L Chloride Level 104 105 98-107 MMOL/L Carbon Dioxide Level 24 23 21-32 MMOL/L Anion Gap 11 11 5-14 MMOL/L Blood Urea Nitrogen 19 H 16 7-18 MG/DL Creatinine 0.92 0.80 0.60-1.30 MG/DL Estimat Glomerular Filtration Rate > 60 > 60 BUN/Creatinine Ratio 21 20 Glucose Level 82 116 H 70-105 MG/DL Calcium Level 10.0 9.2 8.5-10.1 MG/DL Magnesium Level 2.3 1.8-2.4 MG/DL Total Bilirubin 0.3 0.4 0.1-1.0 MG/DL Aspartate Amino Transf (AST/SGOT) 21 18 5-34 U/L Alanine Aminotransferase (ALT/SGPT) 20 17 0-55 U/L Alkaline Phosphatase 75 70 40-136 U/L Total Creatine Kinase 86 29-168 U/L Creatine Kinase MB 0.9 <6.6 NG/ML Troponin I < 0.30 < 0.30 <0.30 NG/ML B-Type Natriuretic Peptide 14.1 <100.0 PG/ML Total Protein 7.2 6.3 L 6.4-8.2 GM/DL Albumin 4.5 4.0 3.2-4.5 GM/DL Amylase Level 131 H 530 H 25-125 U/L Lipase 341 H 2702 H 8-78 U/L TSH [place]itus Testing 1.76 0.35-4.94 UIU/ML Serum Test, Qualitative NEGATIVE NEGATIVE Triglycerides Level 50 <150 MG/DL Cholesterol Level 187 < 200 MG/DL LDL Cholesterol Direct 108 1-129 MG/DL VLDL Cholesterol 10 5-40 MG/DL HDL Cholesterol 68 H 40-60 MG/DL Radiology NAME: LOLIS TAVERAS [facility] REC#: [id number] PT STATUS: REG ER : 1975 PHYSICIAN: DUNG VARGAS DO ADMIT DATE: 04/09/18/ER Signed Date of Exam: 04/09/18 CHEST 1 VIEW, AP/PA ONLY INDICATION: Chest pain x3 days. TECHNIQUE: Single view chest 7:26 PM. CORRELATION STUDY: 12/26/2010 FINDINGS: The heart size, mediastinal configuration and pulmonary vascularity are within normal limits. The lungs are clear with no consolidating infiltrate. There is no significant effusion or pneumothorax. IMPRESSION: 1. Stable, negative portable chest. Dictated by: Dictated on workstation # [id number] Dict: 04/09/182026 Trans: 04/09/182026 Interpreted by: JOSEFINA SANDERS DO Electronically signed by: JOSEFINA SANDERS DO 04/09/182026 NAME: LOLIS TAVERAS [facility] REC#: [id number] PT STATUS: ADM Rebeka : 1975 PHYSICIAN: DUNG VARGAS DO ADMIT DATE: 04/09/18/[facility] Draft Date of Exam:04/09/18 CT ERNST CHEST/NOANG ABD-PELV W EXAM: CT ERNST CHEST/NOANG ABD-PELV W INDICATION: Chest pain. COMPARISON: Chest radiograph 04/09/2018. CT abdomen and pelvis without contrast 03/20/2016. FINDINGS: Chest: Normal caliber thoracic aorta without evidence of dissection. No pulmonary artery filling defects. Lungs are clear. No pleural effusion or pneumothorax . Normal heart size. No pericardial effusion. No mediastinal, hilar or axillary lymphadenopathy. No acute osseous findings. Abdomen and pelvis: Mild nonspecific prominence of the main pancreatic duct. Cecectomy. The liver, gallbladder, spleen, adrenals, kidneys and collecting systems are unremarkable. Hysterectomy. No free intraperitoneal air or fluid. No evidence of bowel obstruction or inflammation. No lymphadenopathy. No acute osseous findings. IMPRESSION: 1. No thoracic aortic aneurysm or dissection. No pulmonary emboli. 2. Mild nonspecific prominence of the main pancreatic duct measuring approximately 4 mm in diameter. 3. No acute CT findings in the chest, abdomen or pelvis. Dictated on workstation # [id number] Dict: 04/10/18612 Trans: 04/10/18 0626 [facility] [id number] Interpreted by: ESTIVEN CHAPMAN MD Electronically signed by: Physical Exam-(CHC) Physical Exam Vital Signs VS - Last 72 Hours, by Label 04/09/18 04/09/18 04/10/18 04/10/18 19:35 19:35 01:00 01:25 Temp 98.1 96.4 Pulse 65 54 Resp 24 20 B/P (MAP) 129/86 (100) 111/74 (86) Pulse Ox 100 98 O2 Delivery Room Air Room Air Room Air Room Air 04/10/18 04/10/18 04/10/18 04/10/18 01:40 01:55 02:10 03:10 Pulse 66 58 58 55 B/P (MAP) 100/63 (75) 109/72 (84) 109/73 (85) 92/59 (70) Pulse Ox 96 98 96 95 04/10/18 04/10/18 04/10/18 04/10/18 03:15 04:00 05:10 05:57 Temp 96.0 Pulse 58 62 77 70 Resp 20 B/P (MAP) 93/56 (68) 88/58 (68) 97/67 (77) Pulse Ox 94 96 97 O2 Delivery Room Air 04/10/18 07:45 Temp 97.6 Pulse 54 Resp 18 B/P (MAP) 105/57 (73) Pulse Ox 96 O2 Delivery Room Air Capillary Refill : Less Than 3 Seconds General Appearance: mild distress (when her epigastrium is pressed upon) HEENT: normal ENT inspection Neck: non-tender Respiratory: lungs clear Cardiovascular: regular rate, rhythm Gastrointestinal: tenderness (oted in the epigastrium), other (bowel sounds are currently quiet) Rectal: deferred Extremities: normal range of motion Skin: normal color Assessment/Plan Assessment/Plan Admission Dx 1. Acute pancreatitis 2. Chest painmost likely this is related to the pancreatitis but cannot totally exclude cardiac Admission Status: Inpatient Order (span 2 midnights) Reason for Inpatient Admission: she'll be admitted for further acute pancreatitis management including gallbladder evaluation Assessment & Plan 1. Acute pancreatitis -at this time her pancreatic levels of lipase and amylase will be followed. -She will be reintroduced to diet measures slowly -Will check gallbladder ultrasound 2. Chest painmost likely this is related to the pancreatitis but cannot totally exclude cardiac -Cardiology consultation Clinical Quality Measures AMI/AHF: ASA po Prior to arrival: No DVT/VTE Risk/Contraindication: Risk Factor Score Per Nursin RFS Level Per Nursing on Admit: 1=Low/No VTE PPX JOSÉ ROSALES MD Apr 10, 2018 09:09
--- NOTE | 2018-04-10 10:13 | Diagnostic Imaging Report ---
PROCEDURE: US Gallbladder. TECHNIQUE: Multiple real-time grayscale images were obtained over the right upper quadrant in various projections. INDICATION: Pancreatitis. FINDINGS: The liver is normal in size without focal lesions. There is prominence of the common bile duct up to 8.2 mm. There is no cholelithiasis gallbladder wall thickening or pericholecystic fluid. The pancreas is obscured by bowel gas. Right kidney is normal. There is no ascites. IMPRESSION: Prominence of the common bile up to 8 mm. The possibility of choledocholithiasis cannot be excluded. Recommend clinical correlation and, if warranted, followup with MRCP. Otherwise, unremarkable right upper quadrant ultrasound. Dictated by: Dictated on workstation # [id number]
--- NOTE | 2018-04-10 11:18 | Consultation-Cardiology ---
HPI-Cardiology Cardiology Consultation: Date of Consultation 04/10/18 Time Seen by Provider: 10:40 Date of Admission Attending Physician José Kendall MD Admitting Physician Marly Moreno Consulting Physician LATRICIA CONTRERAS MD, MA, FACP, FACC, FSCAI, CCDS HPI: Chief Complaint: Chest pain 42 yo woman who presented with chest pain: onset 3 days ago, nearly continuous, in the epigastrium and L parasternal areas, nonradiating, some improvement with s/l NTG in the ER, worse with palpation over the sites of discomfort, associated with nausea, mod to mod severe in intensity, never experienced before No shortness of breath Intermittent feeling of a dropped or missed heart beat No syncope or near-syncope No leg swelling No fever or chill No wgt gain or wgt loss in the recent past Review of Systems-Cardiology Review of Systems Constitutional: As described under HPI Eyes: No vision change Ears/Nose/Throat: No ear discharge, No nasal drainage, No recent hearing loss Respiratory: As described under HPI Cardiovascular: As described under HPI Gastrointestinal: As described under HPI Genitourinary: No dysuria, No hematuria Musculoskeletal: No back pain, No joint pain Skin: No rash, No ulcerations Psychiatric/Neurological: No seizure, No focal weakness, No syncope Hematologic: No bleeding abnormalities BMW-Fdalki-Elhmda Hx Patient Social History Number of Children: 0 Alcohol Use: Denies Use Recreational Drug Use: No Smoking Status: Current Everyday Smoker Type Used: Electronic/Vapor Recent Foreign Travel: No Recent Infectious Disease Expo: No Hospitalization with Isolation: Denies Physical Abuse Screen: No Sexual Abuse: No Past Medical History PMH As described under Assessment. Family Medical History Family History: Anxiety disorder 19 MOTHER, Onset:Unknown FH: bipolar disorder 19 MOTHER, Onset:Unknown Allergies and Home Medications Allergies Coded Allergies: NKANo Known Allergies (Verified Allergy, Unknown, 07/22/06) Home Medications Cholecalciferol (Vitamin D3) 2,000 Unit Capsule, 2,000 UNIT PO DAILY, (Reported) Docusate Sodium 100 Mg Capsule, 100 MG PO DAILY PRN for CONSTIPATION, (Reported) Estrogens, Conjugated 0.625 Mg Tablet, 0.625 MG PO NEEDED, (Reported) Paroxetine HCl 20 Mg Tablet, 20 MG PO DAILY, (Reported) Patient Home Medication List Home Medication List Reviewed: Yes Physical Exam-Cardiology Physical Exam Vital Signs/I&O 6/9/18 6/9/18 6/9/18 6/9/18 01:00 01:25 01:40 01:55 Temp 96.4 Pulse 54 66 58 Resp 20 B/P (MAP) 111/74 (86) 100/63 (75) 109/72 (84) Pulse Ox 98 96 98 O2 Delivery Room Air Room Air 04/10/18 04/10/18 04/10/18 04/10/18 02:10 03:10 03:15 04:00 Temp 96.0 Pulse 58 55 58 62 Resp 20 B/P (MAP) 109/73 (85) 92/59 (70) 93/56 (68) Pulse Ox 96 95 94 O2 Delivery Room Air 04/10/18 04/10/18 04/10/18 05:10 05:57 07:45 Temp 97.6 Pulse 77 70 54 Resp 18 B/P (MAP) 88/58 (68) 97/67 (77) 105/57 (73) Pulse Ox 96 97 96 O2 Delivery Room Air Capillary Refill : Less Than 3 Seconds Constitutional: AAO x 3, well-developed, well-nourished HEENT: EOMI, hearing is well preserved; No xanthelasmas are seen Neck: carotid bruit, carotid pulses are 2 + bilaterally, with good upstrokes Respiratory: No accessory muscle use; lungs clear to percussion, lungs clear to auscultation Cardiovascular: regular rate-rhythm, S1 and S2, systolic murmur (faint [place] at card base) Gastrointestinal: tender (in the epigastrium), guarding, rebound, audible bowel sounds Extremities: No clubbing, No cyanosis, No significant edema Neurologic/Psychiatric: oriented x 3, grossly intact, power is 5/5 both on sides Skin: No rash on exposed areas Data Review Labs Laboratory Tests 04/09/18 20:02: White Blood Count 5.8, Red Blood Count 4.40, Hemoglobin 14.7, Hematocrit 40, Mean Corpuscular Volume 91, Mean Corpuscular Hemoglobin 33, Mean Corpuscular Hemoglobin Concent 37H, Red Cell Distribution Width 12.2, Platelet Count 244, Mean Platelet Volume 9.7, Neutrophils (%) (Auto) 42, Lymphocytes (%) (Auto) 48H , Monocytes (%) (Auto) 7, Eosinophils (%) (Auto) 3, Basophils (%) (Auto) 1, Neutrophils # (Auto) 2.4, Lymphocytes # (Auto) 2.8, Monocytes # (Auto) 0.4, Eosinophils # (Auto) 0.2, Basophils # (Auto) 0.0, Prothrombin Time 12.9, INR Comment 1.0, Activated Partial Thromboplast Time 29, Sodium Level 139, Potassium Level 3.8, Chloride Level 104, Carbon Dioxide Level 24, Anion Gap 11, Blood Urea Nitrogen 19H, Creatinine 0.92, Estimat Glomerular Filtration Rate > 60, BUN/Creatinine Ratio 21, Glucose Level 82, Calcium Level 10.0, Magnesium Level 2.3, Total Bilirubin 0.3, Aspartate Amino Transf (AST/SGOT) 21, Alanine Aminotransferase (ALT/SGPT) 20, Alkaline Phosphatase 75, Total Creatine Kinase 86, Creatine Kinase MB 0.9, Troponin I < 0.30, B-Type Natriuretic Peptide 14.1, Total Protein 7.2, Albumin 4.5, Amylase Level 131H, Lipase 341H, TSH Wayan Testing 1.76, Serum Test, Qualitative NEGATIVE 04/10/18 02:40: White Blood Count 5.3, Red Blood Count 4.21L, Hemoglobin 13.5, Hematocrit 39, Mean Corpuscular Volume 92, Mean Corpuscular Hemoglobin 32, Mean Corpuscular Hemoglobin Concent 35, Red Cell Distribution Width 12.3, Platelet Count 234, Mean Platelet Volume 9.9, Neutrophils (%) (Auto) 44, Lymphocytes (%) (Auto) 42, Monocytes (%) (Auto) 12, Eosinophils (%) (Auto) 2, Basophils (%) (Auto) 0, Neutrophils # (Auto) 2.4, Lymphocytes # (Auto) 2.2, Monocytes # (Auto) 0.6, Eosinophils # (Auto) 0.1, Basophils # (Auto) 0.0, Sodium Level 139, Potassium Level 3.9, Chloride Level 105, Carbon Dioxide Level 23, Anion Gap 11, Blood Urea Nitrogen 16, Creatinine 0.80, Estimat Glomerular Filtration Rate > 60, BUN/ Creatinine Ratio 20, Glucose Level 116H, Calcium Level 9.2, Total Bilirubin 0.4 , Aspartate Amino Transf (AST/SGOT) 18, Alanine Aminotransferase (ALT/SGPT) 17, Alkaline Phosphatase 70, Troponin I < 0.30, Total Protein 6.3L, Albumin 4.0, Amylase Level 530H, Lipase 2702H, Triglycerides Level 50, Cholesterol Level 187 , LDL Cholesterol Direct 108, VLDL Cholesterol 10, HDL Cholesterol 68H Laboratory Tests 04/09/18 20:02 04/10/18 02:40 A/P-Cardiology Assessment/Admission Diagnosis Ac pancreatitis, probably due to choledocholithiasis, being managed by Dr Kendall Chest pain, likely related to ac pancreatitis; no evidence of ac cor syndrome H/o tobacco/vapor use, continuing Discussion and Recomendations * We reviewed and discussed her CV issues * Risk factor mod advised, including tobacco/vapor avoidance * Echo * Card risk for non-cardiac surgery is estimated to be low to intermediate Clinical Quality Measures AMI/AHF: ASA po Prior to arrival: No DVT/VTE Risk/Contraindication: Risk Factor Score Per Nursin RFS Level Per Nursing on Admit: 1=Low/No VTE PPX LATRICIA CONTRERAS MD FACP FAC CCDS Apr 10, 2018 11:18
[2018-04-10] MEDS: ONDANSETRON 4 MG/2 ML (SDV) Z0FRAN IV PRN (21:20)
[2018-04-11] VITALS: BP 106/53
[2018-04-11 04:00] VITALS: BP 106/56
[2018-04-11] MEDS: D5 1/2 NS W/KCL 20 MEQ/L 1,000 ML IV SCH ×2 (05:29→12:55)
[2018-04-11 06:01] LABS: BASOPHILS % (AUTO) 1 % (0-10); EOSINOPHILS # (AUTO) 0.1 10^3/uL (0.0-0.3); EOSINOPHILS % (AUTO) 3 % (0-10); HEMATOCRIT 39 % (35-52); HEMOGLOBIN 13.8 G/DL (11.5-16.0); LYMPHOCYTES # (AUTO) 1.5 X 10^3 (1.0-4.0); LYMPHOCYTES % (AUTO) 41 % (12-44); MEAN CORPUSCULAR HEMOGLOBIN 33 PG (25-34); MEAN CORPUSCULAR HGB CONC 35 G/DL (32-36); MEAN CORPUSCULAR VOLUME 94 FL (80-99); MEAN PLATELET VOLUME 9.7 FL (7.4-10.4); MONOCYTES # (AUTO) 0.3 X 10^3 (0.0-1.0); MONOCYTES % (AUTO) 9 % (0-12); NEUTROPHILS # (AUTO) 1.7 X 10^3 (1.8-7.8); NEUTROPHILS % (AUTO) 47 % (42-75); PLATELET COUNT 208 10^3/uL (130-400); RED BLOOD COUNT 4.18 10^6/uL (4.35-5.85); RED CELL DISTRIBUTION WIDTH 12.4 % (10.0-14.5); WHITE BLOOD COUNT 3.7 10^3/uL (4.3-11.0)
[2018-04-11 06:34] LABS: ALANINE AMINOTRANSFERASE 17 U/L (0-55); ALBUMIN 3.8 GM/DL (3.2-4.5); ALKALINE PHOSPHATASE 64 U/L (40-136); AMYLASE 101 U/L (25-125); BILIRUBIN,TOTAL 0.4 MG/DL (0.1-1.0); BUN/CREATININE RATIO 8; CALCIUM 9.5 MG/DL (8.5-10.1); CARBON DIOXIDE 22 MMOL/L (21-32); CHLORIDE 113 MMOL/L (98-107); CREATININE SERUM 0.72 MG/DL (0.60-1.30); GFR ESTIMATED > 60; GLUCOSE 111 MG/DL (70-105); LIPASE 45 U/L (8-78); POTASSIUM 4.2 MMOL/L (3.6-5.0); SODIUM 143 MMOL/L (135-145); TOTAL PROTEIN 6.1 GM/DL (6.4-8.2)
[2018-04-11 07:20] VITALS: BP 108/66
--- NOTE | 2018-04-11 08:03 | Progress Note (SOAP) ---
Subjective Subjective/Events-last exam Patient has had improvement of the epigastric/chest pain discomfort since yesterday. She is taking fluids well. Review of Systems Date Seen by Provider: Apr 11, 2018 Time Seen by Provider: 08:00 Objective Exam Last Set of Vital Signs Vital Signs Date Time Temp Pulse Resp B/P (MAP) Pulse Ox O2 Delivery O2 Flow Rate FiO2 04/11/18 04:00 97.5 55 16 106/56 (73) 98 Room Air Capillary Refill : Less Than 3 Seconds I&O Intake and Output 04/11/18 00:00 Intake Total 4415 ml Output Total 600 ml Balance 3815 ml Intake Oral 2425 ml IV Total 1990 ml Output Urine Total 600 ml # Voids 5 Daily Weight Change No General: No Acute Distress Lungs: Clear to Auscultation Heart: Regular Rate Abdomen: Soft, Other (Slight tenderness in the epigastric region) Skin: No Rashes Results/Procedures Lab Laboratory Tests 04/11/18 05:50: White Blood Count 3.7L, Red Blood Count 4.18L, Hemoglobin 13.8, Hematocrit 39, Mean Corpuscular Volume 94, Mean Corpuscular Hemoglobin 33, Mean Corpuscular Hemoglobin Concent 35, Red Cell Distribution Width 12.4, Platelet Count 208, Mean Platelet Volume 9.7, Neutrophils (%) (Auto) 47, Lymphocytes (%) (Auto) 41, Monocytes (%) (Auto) 9, Eosinophils (%) (Auto) 3, Basophils (%) (Auto) 1, Neutrophils # (Auto) 1.7L, Lymphocytes # (Auto) 1.5, Monocytes # (Auto) 0.3, Eosinophils # (Auto) 0.1, Basophils # (Auto) 0.0, Sodium Level 143, Potassium Level 4.2, Chloride Level 113H, Carbon Dioxide Level 22, Anion Gap 8, Blood Urea Nitrogen 6L, Creatinine 0.72, Estimat Glomerular Filtration Rate > 60, BUN/ Creatinine Ratio 8, Glucose Level 111H, Calcium Level 9.5, Total Bilirubin 0.4, Aspartate Amino Transf (AST/SGOT) 15, Alanine Aminotransferase (ALT/SGPT) 17, Alkaline Phosphatase 64, Total Protein 6.1L, Albumin 3.8, Amylase Level 101, Lipase 45 Radiology NAME: GUNJAN TAVERASCarri Gilliam [facility] REC#: [id number] PT STATUS: REG ER : 1975 PHYSICIAN: DUNG VARGAS DO ADMIT DATE: 04/09/18/ER Signed Date of Exam: 04/09/18 CHEST 1 VIEW, AP/PA ONLY INDICATION: Chest pain x3 days. TECHNIQUE: Single view chest 7:26 PM. CORRELATION STUDY: 12/26/2010 FINDINGS: The heart size, mediastinal configuration and pulmonary vascularity are within normal limits. The lungs are clear with no consolidating infiltrate. There is no significant effusion or pneumothorax. IMPRESSION: 1. Stable, negative portable chest. Dictated by: Dictated on workstation # [id number] Dict: 04/09/182026 Trans: 04/09/182026 Interpreted by: JOSEFINA SANDERS DO Electronically signed by: JOSEFINA SANDERS DO 04/09/182026 NAME: LOLIS TAVERAS [facility] REC#: [id number] PT STATUS: ADM Rebeka : 1975 PHYSICIAN: DUNG VARGAS DO ADMIT DATE: 04/09/18/4TH Draft Date of Exam:04/09/18 CT ERNST CHEST/NOANG ABD-PELV W EXAM: CT ERNST CHEST/NOANG ABD-PELV W INDICATION: Chest pain. COMPARISON: Chest radiograph 04/09/2018. CT abdomen and pelvis without contrast 03/20/2016. FINDINGS: Chest: Normal caliber thoracic aorta without evidence of dissection. No pulmonary artery filling defects. Lungs are clear. No pleural effusion or pneumothorax . Normal heart size. No pericardial effusion. No mediastinal, hilar or axillary lymphadenopathy. No acute osseous findings. Abdomen and pelvis: Mild nonspecific prominence of the main pancreatic duct. Cecectomy. The liver, gallbladder, spleen, adrenals, kidneys and collecting systems are unremarkable. Hysterectomy. No free intraperitoneal air or fluid. No evidence of bowel obstruction or inflammation. No lymphadenopathy. No acute osseous findings. IMPRESSION: 1. No thoracic aortic aneurysm or dissection. No pulmonary emboli. 2. Mild nonspecific prominence of the main pancreatic duct measuring approximately 4 mm in diameter. 3. No acute CT findings in the chest, abdomen or pelvis. Dictated on workstation # [id number] Dict: 04/10/18612 Trans: 04/10/18 0626 [facility] [id number] Interpreted by: ESTIVEN CHAPMAN MD Electronically signed by: Assessment/Plan Assessment/Plan Assessment & Plan 1. Acute pancreatitis -at this time her pancreatic levels of lipase and amylase will be followed. -She will be reintroduced to diet measures slowly -Will check gallbladder ultrasound 04/11: Gallbladder ultrasound revealed common bile duct dilated to 8 mm. Choledochocholelithiasis cannot be excluded. -Surgical input 2. Chest painmost likely this is related to the pancreatitis but cannot totally exclude cardiac -Cardiology consultation 04/11: -Cardiology consultation done Clinical Quality Measures AMI/AHF: ASA po Prior to arrival: No DVT/VTE Risk/Contraindication: Risk Factor Score Per Nursin RFS Level Per Nursing on Admit: 1=Low/No VTE PPX SEBASTIAN ROSALES MD Apr 11, 2018 08:02
[2018-04-11] MEDS: ASPIRIN E.C. 81 MG (ECOTRIN) TAB PO SCH (09:38)
[2018-04-11] MEDS: PANTOPRAZOLE 40 MG/10 ML (PROTONIX) VIAL IV SCH (09:38)
[2018-04-11] MEDS: ONDANSETRON 4 MG/2 ML (SDV) Z0FRAN IV PRN (09:38)
[2018-04-11 11:40] VITALS: BP 114/75
--- NOTE | 2018-04-11 12:18 | CONSULTATION REPORT ---
DATE OF SERVICE: 04/11/2018 ATTENDING PRIMARY CARE: JOAO Pompa. ADMITTING PHYSICIAN: José Kendall MD. HISTORY OF PRESENT ILLNESS: The patient is a 42-year-old female, who presented with chest pain. She reports that she has had a history of this before and was diagnosed with having premature ventricular contractions on intermittent basis. She reports that she has not taken any medications in the past for this because it was never symptomatic. She states that this time around there was a significant chest discomfort as well as the feeling of nausea and slightly lightheaded. She was admitted and worked up and started on IV fluids. The CT scan of the chest as well as cardiac workup was negative. She was found to have elevated pancreatic enzymes upon admission. An ultrasound of the gallbladder was performed, which did not show any stones; however, there is a slightly enlarged common bile duct at 8 mm. Since being admitted, she has felt much better. Her pancreatic enzymes have normalized and her total bilirubin has been normal throughout the hospital stay. She does report that she does drink wine on an intermittent basis usually with dinner. She does have a history of smoking and quit two years ago and now does vapor cigarettes. She also does report switching diet to a low carbohydrate and sugar, high protein and fat diet as well. We feel that the etiology of her pain secondary to change in diet versus sphincter of oddi spasms causing a transient pancreatitis. At this time, she is asymptomatic. PAST MEDICAL HISTORY: PVC, irritable bowel. ALLERGIES: No known drug allergies. MEDICATIONS: Paxil, Celexa. SOCIAL HISTORY: Positive vapor smoker, social alcohol. FAMILY HISTORY: Noncontributory. REVIEW OF SYSTEMS: Well-nourished female, in no acute distress. She is not experiencing any shortness of breath or difficulty breathing. No chest pain, palpitations, diaphoresis. No nausea, vomiting with a few episodes of diarrhea before admission. No red blood per rectum, no dark tarry stools. All other review of systems is negative. PHYSICAL EXAMINATION: VITAL SIGNS: Temperature 97.1, blood pressure 110/78, pulse 54, respirations 18, and pulse ox 98% on room air. CHEST: Clear. Good breath sounds bilaterally. HEART: Regular. No murmurs. HEENT: No scleral icterus. NECK: No cervical lymphadenopathy. ABDOMEN: Soft, nontender, nondistended. No peritoneal signs. SKIN: Warm, dry. ASSESSMENT AND PLAN: A 42-year-old female with pancreatitis of unknown etiology. This most likely is diet related; however, may be also due to alcohol or smoking or medications as well. An ultrasound was performed of the gallbladder, which did not show any gallstones as well as no biliary sludge; however, there was a slightly prominent common bile duct at 8 mm which may indicate some form of biliary stasis with sludge that undetected on ultrasound. If she has recurrent symptoms, this may warrant more tests. A HIDA first scan and if there is delayed transit, this may warrant further investigation with an ERCP. Job ID: [id number] DocumentID: [id number] Dictated Date: 04/11/2018 11:17:33 Supervisor Delivery Department Date: 04/11/2018 12:17:16 Dictated By: EAMON LOVE MD MTDD
--- NOTE | 2018-04-11 13:45 | Progress Note-Cardiology ---
Cardiology SOAP Progress Note Subjective: No cp or abd pain or N/V or shortness of breath or palp Able to have an oral intake and retain Has been evaluated by Dr Nam of the Surgical Service Objective: I&O/Vital Signs 04/11/18 04/11/18 04/11/18 04/11/18 04:00 07:20 07:32 09:00 Temp 97.5 98.0 Pulse 55 59 45 Resp 16 16 B/P (MAP) 106/56 (73) 108/66 (80) Pulse Ox 98 99 O2 Delivery Room Air Room Air Room Air 04/11/18 11:40 Temp 97.4 Pulse 50 Resp 16 B/P (MAP) 114/75 (88) Pulse Ox 98 O2 Delivery Room Air 04/11/18 00:00 Intake Total 3350 ml Output Total 600 ml Balance 2750 ml Weight (Pounds): 179 Weight (Ounces): 7.0 Weight (Calculated Kilograms): 81.619544 Constitutional: AAO x 3, well-developed, well-nourished Respiratory: No accessory muscle use; lungs clear to percussion, lungs clear to auscultation Cardiovascular: regular rate-rhythm, S1 and S2, systolic murmur (faint [place] at card base) Gastrointestional: tender (in the epigastrium), guarding, rebound, audible bowel sounds Extremities: No clubbing, No cyanosis, No significant edema Neurologic/Psychiatric: oriented x 3, grossly intact, power is 5/5 both on sides Skin: No rash on exposed areas Results/Procedures: Labs Laboratory Tests 04/11/18 05:50: White Blood Count 3.7L, Red Blood Count 4.18L, Hemoglobin 13.8, Hematocrit 39, Mean Corpuscular Volume 94, Mean Corpuscular Hemoglobin 33, Mean Corpuscular Hemoglobin Concent 35, Red Cell Distribution Width 12.4, Platelet Count 208, Mean Platelet Volume 9.7, Neutrophils (%) (Auto) 47, Lymphocytes (%) (Auto) 41, Monocytes (%) (Auto) 9, Eosinophils (%) (Auto) 3, Basophils (%) (Auto) 1, Neutrophils # (Auto) 1.7L, Lymphocytes # (Auto) 1.5, Monocytes # (Auto) 0.3, Eosinophils # (Auto) 0.1, Basophils # (Auto) 0.0, Sodium Level 143, Potassium Level 4.2, Chloride Level 113H, Carbon Dioxide Level 22, Anion Gap 8, Blood Urea Nitrogen 6L, Creatinine 0.72, Estimat Glomerular Filtration Rate > 60, BUN/ Creatinine Ratio 8, Glucose Level 111H, Calcium Level 9.5, Total Bilirubin 0.4, Aspartate Amino Transf (AST/SGOT) 15, Alanine Aminotransferase (ALT/SGPT) 17, Alkaline Phosphatase 64, Total Protein 6.1L, Albumin 3.8, Amylase Level 101, Lipase 45 A/P: Assessment: Ac pancreatitis, etiology unclear, being managed by Dr Kendall & Dr Nam Chest pain, likely related to ac pancreatitis; no evidence of ac cor syndrome H/o tobacco/vapor use, continuing Plan: * We reviewed and discussed her CV issues * Risk factor mod advised, including tobacco/vapor avoidance * She wishes to go home and does not wish to have further cardiac testing or f/u * Advised to return to ER in case of recurrent or new symptoms Clinical Quality Measures AMI/AHF: ASA po Prior to arrival: LATRICIA Arechiga MD FACP FAC CCDS Apr 11, 2018 13:45
[2018-04-11 14:14] VITALS: BP 114/75
--- OUTSIDE RECORDS SUMMARY | 2018-04-13 13:05 | XMS REPORT | Continuity of Care Document ---
Author Author [facility] Address Unknown Phone Unavailable Allergies Active Description Code Type Severity Reaction Onset Reported/Identified Relationship to Patient Clinical Status Yes NKANo Known Allergies NKA Miscellaneous Allergy Unknown N/A 07/22/2006 Medications There is no data. Problems Date Dx Coded Attending Type Code Diagnosis Diagnosed By 05/17/2008 SOMMER BUCKNER 724.5 BACKACHE UNSPECIFIED 05/17/2008 SOMMER BUCKNER 724.5 BACKACHE UNSPECIFIED 05/26/2008 SOMMER BUCKNER 836.0 TEAR OF MEDIAL CARTILAGE OR MENISCUS OF KNEE CURRENT 05/26/2008 SOMMER BUCKNER 836.1 TEAR OF LATERAL CARTILAGE OR MENISCUS OF KNEE CURRENT 05/26/2008 SOMMER BUCKNER 836.0 TEAR OF MEDIAL CARTILAGE OR MENISCUS OF KNEE CURRENT 05/26/2008 SOMMER BUCKNER 836.1 TEAR OF LATERAL CARTILAGE OR MENISCUS OF KNEE CURRENT 09/19/2008 SOMMER BUCKNER 785.1 PALPITATIONS 09/19/2008 SOMMER BUCKNER 785.1 PALPITATIONS 02/01/2009 SOMMER BUCKNER 305.1 NICOTINE DEPENDENCE 02/01/2009 SOMMER BUCKNER 729.5 foot pain (soft tissue) 02/01/2009 SOMMER BUCKNER 780.79 feeling tired or poorly 02/01/2009 SOMMER BUCKNER 305.1 NICOTINE DEPENDENCE 02/01/2009 SOMMER BUCKNER 729.5 foot pain (soft tissue) 02/01/2009 SOMMER BUCKNER 780.79 feeling tired or poorly 02/11/2009 SOMMER BUCKNER 280.9 ANEMIA IRON DEFICIENCY 02/11/2009 JACQUELINE FELIZ, SOMMER W 280.9 ANEMIA IRON DEFICIENCY 02/20/2009 JACQUELINE LC, SOMMER W 562.10 DIVERTICULOSIS OF COLON (WITHOUT HEMORRHAGE) 02/20/2009 JACQUELINE LCM, SOMMER W 562.10 DIVERTICULOSIS OF COLON (WITHOUT HEMORRHAGE) 06/28/2009 JACQUELINE EPPSF, SOMMER W V74.5 STD SCREEN 06/28/2009 JACQUELINE EPPSF, SOMMER W V74.5 STD SCREEN 07/30/2009 JACQUELINE EPPSF, SOMMER W 309.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 ANX DEP MOOD 07/30/2009 JACQUELINE MIRF, SOMMER W 309.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 ANX DEP MOOD 08/23/2009 JACQUELINE EPPSF, SOMMER W 296.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 08/23/2009 JACQUELINE LC, SOMMER W 300.02 GENERALIZED ANXIETY DISORDER 08/23/2009 JACQUELINE LC, SOMMER W 783.1 recent weight gain of lbs 08/23/2009 JACQUELINE MIR, SOMMER W 296.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 08/23/2009 JACQUELINE [facility], SOMMER W 300.02 GENERALIZED ANXIETY DISORDER 08/23/2009 JACQUELINE [facility], SOMMER W 783.1 recent weight gain of lbs 09/10/2009 JACQUELINE FELIZ, SOMMER W 786.50 CHEST PAIN 09/10/2009 JACQUELINE LC, SOMMER W 786.50 CHEST PAIN 09/19/2009 JACQUELINE [facility], SOMMER W 300.00 ANXIETY UNSPEC 09/19/2009 JACQUELINE [facility], SOMMER W 300.00 ANXIETY UNSPEC 12/26/2010 Ot 300.00 12/26/2010 Ot 305.20 12/26/2010 Ot 780.4 12/26/2010 Ot 787.02 01/16/2015 JACQUELINE FELIZ, SOMMER W 309.81 AN PTSD 01/16/2015 JACQUELINE LCOctavio, SOMMER W 309.81 AN PTSD 04/18/2015 JARETT DAMON APRN Ot V76.12 12/06/2015 Ot F17.210 NICOTINE DEPENDENCE, CIGARETTES, UNCOMPL 12/06/2015 Ot F31.9 BIPOLAR DISORDER, UNSPECIFIED 12/06/2015 Ot R07.89 OTHER CHEST PAIN 03/20/2016 JARETT DAMON APRN Ot V76.12 OTH SCREEN MAMMO-MALIGN NEOPLASM OF FABRIZIO 03/20/2016 BHUMIKA TREJO Ot E86.9 VOLUME DEPLETION, UNSPECIFIED 03/20/2016 BHUMIKA TREJO Ot F17.210 NICOTINE DEPENDENCE, CIGARETTES, UNCOMPL 03/20/2016 BHUMIKA TREJO Ot R10.31 RIGHT LOWER QUADRANT PAIN 03/21/2016 BHUMIKA TREJO Ot E86.9 VOLUME DEPLETION, UNSPECIFIED 03/21/2016 BHUMIKA TREJO Ot F17.210 NICOTINE DEPENDENCE, CIGARETTES, UNCOMPL 03/21/2016 BHUMIKA TREJO Ot R10.31 RIGHT LOWER QUADRANT PAIN Procedures Code [place] [address] PSYTX PT&/FAMILY 45 MINUTES 01/23/2015 78088 PSYTX PT&/FAMILY 30 MINUTES 01/31/2015 Results Test Result Range Comp. Metabolic Panel (14) - 10/29/16 15:27 Glucose, Serum 90 mg/dL 65-99 BUN 17 mg/dL 6-24 Creatinine, Serum 0.79 mg/dL 0.57-1.00 eGFR If NonAfricn Am 93 mL/min/1.73 >59 eGFR If Africn Am 107 mL/min/1.73 >59 BUN/Creatinine Ratio 22 9-23 Sodium, Serum 141 mmol/L 134-144 Potassium, Serum 4.8 mmol/L 3.5-5.2 Chloride, Serum 100 mmol/L 96-106 Carbon Dioxide, Total 27 mmol/L 18-29 Calcium, Serum 10.0 mg/dL 8.7-10.2 Protein, Total, Serum 6.8 g/dL 6.0-8.5 Albumin, Serum 4.5 g/dL 3.5-5.5 Globulin, Total 2.3 g/dL 1.5-4.5 A/G Ratio 2.0 1.1-2.5 Bilirubin, Total <0.2 mg/dL 0.0-1.2 Alkaline Phosphatase, S 81 IU/L 39-117 AST (SGOT) 17 IU/L 0-40 ALT (SGPT) 16 IU/L 0-32 Lipid Panel - 10/29/16 15:27 Cholesterol, Total 221 mg/dL 100-199 Triglycerides 125 mg/dL 0-149 HDL Cholesterol 86 mg/dL >39 VLDL Cholesterol Eric 25 mg/dL 5-40 LDL Cholesterol Calc 110 mg/dL 0-99 Comp. Metabolic Panel (14) - 04/16/17 17:40 Glucose, Serum 101 mg/dL 65-99 BUN 22 mg/dL 6-24 Creatinine, Serum 1.03 mg/dL 0.57-1.00 eGFR If NonAfricn Am 67 mL/min/1.73 >59 eGFR If Africn Am 77 mL/min/1.73 >59 BUN/Creatinine Ratio 21 9-23 Sodium, Serum 141 mmol/L 134-144 Potassium, Serum 4.4 mmol/L 3.5-5.2 Chloride, Serum 101 mmol/L 96-106 Carbon Dioxide, Total 26 mmol/L 18-29 Calcium, Serum 9.7 mg/dL 8.7-10.2 Protein, Total, Serum 7.0 g/dL 6.0-8.5 Albumin, Serum 4.7 g/dL 3.5-5.5 Globulin, Total 2.3 g/dL 1.5-4.5 A/G Ratio 2.0 1.2-2.2 Bilirubin, Total <0.2 mg/dL 0.0-1.2 Alkaline Phosphatase, S 95 IU/L 39-117 AST (SGOT) 23 IU/L 0-40 ALT (SGPT) 18 IU/L 0-32 Creatine Kinase,Total,Serum - 04/16/17 17:40 Creatine Kinase,Total,Serum 109 U/L 24-173 Magnesium, Serum - 04/16/17 17:40 Magnesium, Serum 2.4 mg/dL 1.6-2.3 Markel Mtn Spotted Fev, IgG, Qn - 04/16/17 17:40 RMSF, IgG, EIA Negative Negative Markel Mtn Spotted Fever, IgM - 04/16/17 17:40 Markel Mtn Spotted Fever, IgM 0.30 index 0.00-0.89 Lyme, Total Ab Test/Reflex - 04/16/17 17:40 Lyme IgG/IgM Ab <0.91 ISR 0.00-0.90 Encounters ACCT No. Visit Date/Time Discharge Status Pt. Type Provider Facility Loc./Unit Complaint [id number] 01/31/2015 13:54:00 01/31/2015 23:59:59 CLS Outpatient SOMMER BUCKNER [id number] 01/23/2015 08:21:00 01/23/2015 23:59:59 CLS Outpatient SOMMER BUCKNER [id number] 04/03/2017 11:22:00 04/03/2017 23:59:59 CLS Outpatient TRAVIS HUIZAR RETAIL EVENT COORDINATOR [facility] RAD SCREENING Z12.39 [id number] 03/20/2016 18:26:00 03/20/2016 20:48:00 DIS Emergency BHUMIKA TREJO [facility] ER ABDOMINAL PAIN [id number] 04/16/2015 11:30:00 04/16/2015 23:59:59 CLS Outpatient JARETT DAMON APRN [facility] RAD [id number] 12/06/2015 15:50:00 Document Registration [id number] 12/26/2010 18:12:00 Document Registration [id number] 10/30/2016 07:06:00 Document Registration [id number] 04/17/2017 08:42:00 Document Registration [id number] 02/10/2018 14:20:00 02/10/2018 23:59:59 CLS Outpatient ERINL TRAVIS [facility] [id number] 04/21/2017 04:06:00 Document Registration
[2018-04-24] MEDS ORDERED: ACHD5005 PO (13:11)
== END 2018-04-11 14:14 | disposition home or self-care (01) ==
LOC: EDUNIT# 18:41 → ER 18:42 → 4TH 18:43 → UNDOADMOB 22:15 → UNDODISOB 04-11 14:27
PROVIDERS: ADMIT Family Medicine; ATTEND Family Medicine
DX: K85.90 Acute pancreatitis without necrosis or infection, unspecified (principal); R07.9 Chest pain, unspecified; F17.290 Nicotine dependence, other tobacco product, uncomplicated
CPT/HCPCS: 36415; 71045; 71275; 74177; 76705; 80053; 80061; 82150; 82550; 82553; 83690; 83735; 83880; 84443; 84484; 84703; 85025; 85610; 85730; 93005; 93041; 96374; 96375

== ENCOUNTER 2018-04-29 12:02 | Day surgery (SDC) | payer SELFPAY ==
[2018-04-29] VITALS (7 sets, daily range): BP systolic 107–127; BP diastolic 71–88
[~2018-04-29] VITALS: Ht 170.2 cm; Wt 80.3 kg
[~2018-04-29 12:02] MED LIST changes: +ACHD5005 PO
[2018-04-29] MEDS ORDERED: fentaNYL INJECTION 100 MCG/2 ML AMP ONE ×2 (12:13→14:12)
[2018-04-29] MEDS ORDERED: ceFAZolin 2 GM IV Premixed 50 ML ONE (12:20)
[2018-04-29] MEDS ORDERED: MIDAZOLAM 2 MG/2 ML (VERSED) VIAL ONE (12:29)
[2018-04-29] MEDS ORDERED: MIDAZOLAM 2 MG/2 ML (VERSED) VIAL IV ONE (12:30)
[2018-04-29] MEDS ORDERED: BUPIVACAINE 0.25% 30 ML (SENSORCAINE) VIAL ONE (12:33)
[2018-04-29] MEDS ORDERED: LIDOCAINE 1% INJ 20 ML 20 ML VIAL ONE (12:33)
[2018-04-29] MEDS: LACTATED RINGERS 1,000 ML IV PRN ×3 (12:40→14:49)
[2018-04-29] MEDS ORDERED: ceFAZolin 2 GM IV Premixed 50 ML IV ONE (12:45)
[2018-04-29] MEDS ORDERED: proPOfol 200 MG/20 ML (DIPRIVAN) VIAL IV ONE (12:47)
[2018-04-29] MEDS ORDERED: ONDANSETRON 4 MG/2 ML (SDV) Z0FRAN ONE ×3 (12:47→16:47)
[2018-04-29] MEDS ORDERED: LIDOCAINE PF 2% 5 ML (XYLOCAINE) VIAL ONE (12:47)
[2018-04-29] MEDS ORDERED: MIDAZOLAM 10 MG/2 ML (VERSED) VIAL ONE (12:48)
[2018-04-29] MEDS ORDERED: DEXAMETHASONE 10 MG/ML (DECADRON) 1 ML VIAL ONE (12:48)
--- NOTE | 2018-04-29 13:26 | Progress Note-Pre Operative ---
Pre-Operative Progress Note H&P Reviewed The H&P was reviewed, patient examined and no changes noted. Date Seen by Provider: Apr 29, 2018 Time Seen by Provider: 13:26 Date H&P Reviewed: Apr 29, 2018 Time H&P Reviewed: 13:26 Pre-Operative Diagnosis: Biliary dyskinesia SHEA CORDERO DO Apr 29, 2018 13:26
[2018-04-29] MEDS ORDERED: SEVOFLURANE (ULTANE) 15 ML INHAL SOLN ONE (14:02)
[2018-04-29] MEDS ORDERED: ATROPINE 0.4 MG/ML 20 ML VIAL ONE (14:22)
--- NOTE | 2018-04-29 14:51 | Progress Note-Post Operative ---
Post-Operative Progess Note Surgeon (s)/Industrial Equipment Mechanic (s) Surgeon SHEA CORDERO DO Industrial Equipment Mechanic: Dr. Rowan Pre-Operative Diagnosis Biliary dyskinesia Post-Operative Diagnosis same Procedure & Operative Findings Date of Procedure 04/29/18 Procedure Performed/Findings lap lizz c ioc Anesthesia Type gen Estimated Blood Loss Estimated blood loss (mL): min Specimens/Packing Specimens Removed gallbladder SHEA CORDERO DO Apr 29, 2018 14:51
[2018-04-29] MEDS ORDERED: ACHD5005 PO (14:53)
--- NOTE | 2018-04-29 14:54 | Discharge Inst-Simple/Standard ---
Discharge Inst-Standard Discharge Medications New, Converted or Re-Newed RX: RX on Chart Patient Instructions/Follow Up Plan of Care/Instructions/FU: 2 weeks Froylan Activity as Tolerated: No Discharge Diet: Regular Diet Other Inst to Patient Follow up Appt: Make appointment for 2 weeks. Instructions: No lifting greater than 10 pounds. No strenuous activity. May shower in 24 hours, no tub bath or soaking. Use incentive spirometer at home as directed. No Smoking Skin/Wound Care: You have special glue over incisions it will fall off on its own. Symptoms to Report: Appetite Changes, Extremity Discoloration, Numbness/Tingling, Swelling Increased , Bleeding Excessive, Eyesight Changes, Pain Increased, Urine Color Change, Constipation(Persistent), Fever over 101 degree F, Pain/Pressure in chest, Urinating Difficulty, Cough Up/Vomit Blood, Heart Beat Irreg/Pounding, Pain/ Pressure in jaw, Vaginal Bleeding Increase, Cramps in feet or legs, Lightheadedness, Pain/Pressure in shoulder, Diarrhea(Persistent), Memory Changes Suddenly, Questions/Concerns, Weight gain consecutive days, Dizziness/ Fainting, Nausea/Vomiting, Shortness of Breath, Weight gain over 2 pounds. If eyes or skin turn yellow notify physician. If questions or concerns contact your physician Or seek help at emergency department. SHEA CORDERO DO Apr 29, 2018 14:54
[2018-04-29] MEDS ORDERED: ONDANSETRON 4 MG/2 ML (SDV) Z0FRAN IVP PRN ×2 (15:00→15:15)
[2018-04-29] MEDS ORDERED: MEPERIDINE (DEMEROL) INJ 50 MG/ML IVP PRN ×2 (15:00→15:15)
[2018-04-29] MEDS ORDERED: morphine INJ 10 MG/ML 1ML (SYR OR VIAL) IVP PRN (15:00)
[2018-04-29] MEDS ORDERED: fentaNYL INJECTION 100 MCG/2 ML AMP IVP PRN (15:15)
[2018-04-29] MEDS ORDERED: HYDROmorphone 1 MG/ML (DILAUDID) 1 ML SYRINGE ONE ×2 (15:16→15:49)
[2018-04-29] MEDS: HYDROmorphone 1 MG/ML (DILAUDID) 1 ML SYRINGE IV PRN ×3 (15:17→15:50)
--- NOTE | 2018-04-29 16:27 | Anesthesia-General Post-Op ---
General Patient Condition Mental Status/LOC: Same as Preop Cardiovascular: Satisfactory Nausea/Vomiting: Absent Respiratory: Satisfactory Pain: Controlled Complications: Absent Post Op Complications Complications None Follow Up Care/Instructions Patient Instructions None needed. Anesthesia/Patient Condition Patient Condition Patient is doing well, no complaints, stable vital signs, no apparent adverse anesthesia problems. No complications reported per nursing. D/C home per [facility] Criteria: Yes DAVINA BRUNNER CRNA Apr 29, 2018 16:27
[2018-04-29] MEDS ORDERED: HYDROcodone/APAP 5 MG/325 MG (LORTAB) TAB ONE (16:28)
[2018-04-29] MEDS ORDERED: HYDROcodone/APAP 5 MG/325 MG (LORTAB) TAB PO ONE ×2 (16:30→17:15)
[2018-04-29] MEDS ORDERED: ONDANSETRON 4 MG/2 ML (SDV) Z0FRAN IVP ONE (16:45)
--- NOTE | 2018-04-29 17:30 | Diagnostic Imaging Report ---
INDICATION: Laparoscopic cholecystectomy. COMPARISON: None. TOTAL FLUORO TIME: 12 seconds FINDINGS: Multiple digital subtraction images of the right upper abdominal quadrant were obtained during intraoperative cholangiogram. Images provided show contrast filling the intrahepatic biliary ductal system. No intraluminal filling defects are seen. Contrast empties into the small bowel, as expected. IMPRESSION: 1. Intraoperative cholangiogram, as described above. Dictated by: Dictated on workstation # [id number]
--- NOTE | 2018-04-29 23:16 | OPERATIVE REPORT ---
DATE OF SERVICE: 04/29/2018 PREOPERATIVE DIAGNOSIS: Biliary dyskinesia. POSTOPERATIVE DIAGNOSIS: Biliary dyskinesia. PROCEDURE: Laparoscopic cholecystectomy with intraoperative cholangiogram. SURGEON: Shea Galeano DO. TOOL PLANER SET UP OPERATOR: Dr. Rowan, assisted in retraction, dissection and closure. ANESTHESIA: General. ESTIMATED BLOOD LOSS: Minimal. COMPLICATIONS: None. INDICATIONS: The patient is a 43-year-old female, who had a workup and symptoms consistent with biliary dyskinesia. She understands risks and benefits of the procedure and wished to proceed with procedure. Consent was signed in the chart. PROCEDURE: The patient was taken to the operating suite. She was prepped and draped in sterile fashion. Surgical pause was performed. Local anesthetic was used to infiltrate just above the umbilicus. Incision was made through the previous scar. The fascia was dissected down with Alice technique. The fascia was scored and then opened and the balloon trocar was inserted into the abdomen and pneumoperitoneum was achieved. Under direct visualization of the laparoscope, a 5 mm trocar was then placed in the subxiphoid region and two 5 mm trocars were placed in the right upper quadrant. Gallbladder was intrahepatic and had some adhesions to it. The adhesions were taken down. The gallbladder was grasped and elevated. The common bile duct was visualized and the cystic duct and cystic artery were then dissected out. Clips were placed on the proximal and distal portion of the cystic artery and then cut. The cystic duct was then able to be further dissected around. A clip was then placed on the distal portion of the cystic duct. The duct was partially transected. Arrow catheter was inserted into the duct and cholangiogram was then performed. There were no filling defects. Contrast made its way into the duodenum without difficulty. The catheter was then removed. Clips were placed on the proximal portion of the cystic duct and the duct was then completely transected. Hook cautery was used to dissect the gallbladder from the gallbladder fossa achieving hemostasis. There was a little bit of slight ooze due to the intrahepatic portion and with retracting, but no significant bleeding. The gallbladder was completely removed and placed in an Endobag and removed through the 12 mm trocar site. The abdomen was then irrigated with copious amounts of irrigation. The liver bed was then reinspected. Hemostasis had been achieved. Some Surgicel was then placed in the gallbladder fossa and the abdomen was irrigated and suctioned again. The abdomen was then desufflated, the trocars were removed. The fascial defect at the 12 mm trocar site was closed with the previously placed 0 Vicryl suture in a [id number] fashion. The skin was then closed using 4-0 Monocryl in a subcuticular fashion. The area was then washed and dried and Skin Affix was placed over the incisions. The patient tolerated procedure well without any complications. She was taken to the recovery room in stable condition. Job ID: [id number] DocumentID: [id number] Dictated Date: 04/29/2018 15:57:23 Bezel Cutter Date: 04/29/2018 23:15:26 Dictated By: SHEA GALEANO DO
== END 2018-04-29 18:50 | disposition home or self-care (01) ==
LOC: SDC 12:02
PROVIDERS: ATTEND Surgery
DX: K81.1 Chronic cholecystitis (principal); F17.290 Nicotine dependence, other tobacco product, uncomplicated
CPT/HCPCS: 87081; 88304

== ENCOUNTER 2019-01-30 20:42 | Emergency (ER) | payer SELFPAY ==
[~2019-01-30] VITALS: Ht 172.7 cm; Wt 79.4 kg
[~2019-01-30 20:42] MED LIST changes: +METR-145 PO; -METR500T21 PO
--- NOTE | 2019-01-30 20:59 | ED Cardiac General ---
History of Present Illness General Chief Complaint: Cardiac/General Problems Stated Complaint: CHEST PAIN,HEAD PRESSURE,HEART BEATING FAST, History of Present Illness Date Seen by Provider: Jan 30, 2019 Time Seen by Provider: 20:50 Initial Comments 43-year-old female reports increased stress, increased caffeine intake , increased vaping and anxiety. Her mother from lung cancer in October 2018 and approximately 2 months ago her dad required bilateral lower extremity amputations. She reports for the last 2 days she's been having some numbness and tingling in her great toe on the right lower extremity. Today she began having some chest palpitations and pressure approximately one hour ago. Timing/Duration: 1 hour Severity: mild Location: substernal Activities at Onset: none Prior CP/Workup: non-cardiac NTG SL AUTOMOBILE BODY CUSTOMIZER: No ASA po AUTOMOBILE BODY CUSTOMIZER: No Associated Systoms: Malaise; No Shortness of Air; Other (palpitations. Denies N /V or abdominal pain. ) Allergies and Home Medications Allergies Coded Allergies: NKANo Known Allergies (Verified Allergy, Unknown, 07/22/06) Home Medications Cholecalciferol (Vitamin D3) 2,000 Unit Capsule, 2,000 UNIT PO DAILY, (Reported) Docusate Sodium 100 Mg Capsule, 100 MG PO DAILY PRN for CONSTIPATION, (Reported) Estrogens, Conjugated 0.625 Mg Tablet, 0.625 MG PO NEEDED, (Reported) Hydrocodone Bit/Acetaminophen 1 Tab Tab, 1 TAB PO Q4H PRN for pain Prescribed by: SHEA CORDERO on 04/29/18 9393 Paroxetine HCl 20 Mg Tablet, 20 MG PO DAILY, (Reported) Patient Home Medication List Home Medication List Reviewed: Yes Review of Systems Review of Systems Constitutional: no symptoms reported, see HPI Cardiovascular: See HPI, Chest Pain, Palpitations Psychiatric/Neurological: See HPI, Anxiety All Other Systems Reviewed Negative Unless Noted: Yes Past Ujdvmkr-Ccigqo-Dlharj Hx Past Med/Social Hx: Reviewed Nursing Past Med/Soc Hx Patient Social History Recreational Drug Use: Yes Drug of Choice: marijuana Type Used: Electronic/Vapor Recent Foreign Travel: No Contact w/Someone Who Travel: No Recent Hopitalizations: No Seasonal Allergies Seasonal Allergies: No Past Medical History Surgeries: Yes Appendectomy, Hysterectomy Respiratory: No Currently Using CPAP: No Currently Using BIPAP: No Cardiac: No Neurological: No Reproductive Disorders: No HAND REAMER History: Hysterectomy Sexually Transmitted Disease: No HIV/AIDS: No Genitourinary: No Gastrointestinal: No Gall Bladder Disease Musculoskeletal: No Endocrine: No HEENT: No Cancer: No Psychosocial: Yes Anxiety, Bipolar, Depression Integumentary: No Blood Disorders: No Adverse Reaction/Blood Tranf: No Family Medical History Anxiety disorder 19 MOTHER, Onset:Unknown FH: bipolar disorder 19 MOTHER, Onset:Unknown No Pertinent Family Hx Physical Exam Vital Signs Vital Signs - First Documented 01/30/19 20:45 Temp 97.9 Pulse 105 Resp 22 B/P (MAP) 153/107 (122) Pulse Ox 100 O2 Delivery Room Air Capillary Refill : Height, Weight, BMI Height: 5'7.00" Weight: 177lbs. 0.0oz. 80.853206pg; 27.7 BMI Method:Stated General Appearance: WD/WN, Anxious HEENT: PERRL/EOMI, TMs Normal, Normal ENT Inspection, Pharynx Normal Neck: Full Range of Motion, Normal Inspection, Non Tender, Supple Respiratory: Chest Non Tender, Lungs Clear, Normal Breath Sounds Cardiovascular: Regular Rate, Rhythm, No Edema, No Murmur, Normal Peripheral Pulses, Tachycardia Gastrointestinal: Normal Bowel Sounds, Non Tender, Soft; No Distended, No Guarding, No Hepatomegaly, No Mass, No Rebound, No Splenomegaly, No Tenderness Neurologic/Psychiatric: Alert, Oriented x3, No Motor/Sensory Deficits, Normal 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/Affect, 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-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 Norm as Tested Skin: Normal Color, Warm/Dry Lymphatic: No Adenopathy Progress/Results/Core Measures Results/Orders Lab Results Laboratory Tests Test 01/30/19 20:54 01/30/19 21:36 Range/Units White Blood Count 7.7 4.3-11.0 10^3/uL Red Blood Count 4.37 4.35-5.85 10^6/uL Hemoglobin 14.4 11.5-16.0 G/DL Hematocrit 41 35-52 % Mean Corpuscular Volume 94 80-99 FL Mean Corpuscular Hemoglobin 33 25-34 PG Mean Corpuscular Hemoglobin Concent 35 32-36 G/DL Red Cell Distribution Width 12.2 10.0-14.5 % Platelet Count 256 130-400 10^3/uL Mean Platelet Volume 9.1 7.4-10.4 FL Neutrophils (%) (Auto) 41 L 42-75 % Lymphocytes (%) (Auto) 51 H 12-44 % Monocytes (%) (Auto) 7 0-12 % Eosinophils (%) (Auto) 2 0-10 % Basophils (%) (Auto) 1 0-10 % Neutrophils # (Auto) 3.1 1.8-7.8 X 10^3 Lymphocytes # (Auto) 3.9 1.0-4.0 X 10^3 Monocytes # (Auto) 0.5 0.0-1.0 X 10^3 Eosinophils # (Auto) 0.1 0.0-0.3 10^3/uL Basophils # (Auto) 0.0 0.0-0.1 10^3/uL Prothrombin Time 13.1 12.2-14.7 SEC INR Comment 1.0 0.8-1.4 Activated Partial Thromboplast Time 30 24-35 SEC Sodium Level 139 135-145 MMOL/L Potassium Level 3.5 L 3.6-5.0 MMOL/L Chloride Level 102 98-107 MMOL/L Carbon Dioxide Level 24 21-32 MMOL/L Anion Gap 13 5-14 MMOL/L Blood Urea Nitrogen 16 7-18 MG/DL Creatinine 0.87 0.60-1.30 MG/DL Estimat Glomerular Filtration Rate > 60 BUN/Creatinine Ratio 18 Glucose Level 118 H 70-105 MG/DL Calcium Level 10.0 8.5-10.1 MG/DL Corrected Calcium 8.5-10.1 MG/DL Magnesium Level 2.6 H 1.8-2.4 MG/DL Total Bilirubin 0.3 0.1-1.0 MG/DL Aspartate Amino Transf (AST/SGOT) 28 5-34 U/L Alanine Aminotransferase (ALT/SGPT) 34 0-55 U/L Alkaline Phosphatase 101 40-136 U/L Total Creatine Kinase 144 29-168 U/L Creatine Kinase MB 1.4 <6.6 NG/ML Myoglobin 40.7 10.0-92.0 NG/ML Troponin I < 0.028 <0.028 NG/ML B-Type Natriuretic Peptide < 10.0 <100.0 PG/ML Total Protein 7.3 6.4-8.2 GM/DL Albumin 4.6 H 3.2-4.5 GM/DL Amylase Level 194 H 25-125 U/L Lipase 536 H 8-78 U/L TSH [place] Testing 2.89 0.35-4.94 UIU/ML Serum Test, Qualitative NEGATIVE NEGATIVE Urine Color YELLOW Urine Clarity CLEAR Urine pH 7 5-9 Urine Specific [place] 1.015 L 1.016-1.022 Urine Protein NEGATIVE NEGATIVE Urine Glucose (UA) NEGATIVE NEGATIVE Urine Ketones NEGATIVE NEGATIVE Urine Nitrite NEGATIVE NEGATIVE Urine Bilirubin NEGATIVE NEGATIVE Urine Urobilinogen NORMAL NORMAL MG/DL Urine Leukocyte Esterase NEGATIVE NEGATIVE Urine RBC (Auto) NEGATIVE NEGATIVE Urine RBC NONE /HPF Urine WBC NONE /HPF Urine Squamous Epithelial Cells 2-5 /HPF Urine Crystals NONE /LPF Urine Bacteria TRACE /HPF Urine Casts NONE /LPF Urine Mucus NEGATIVE /LPF Urine Culture Indicated NO Urine Opiates Screen POSITIVE H NEGATIVE Urine Oxycodone Screen NEGATIVE NEGATIVE Urine Methadone Screen NEGATIVE NEGATIVE Urine Propoxyphene Screen NEGATIVE NEGATIVE Urine Barbiturates Screen NEGATIVE NEGATIVE Ur Tricyclic Antidepressants Screen POSITIVE H NEGATIVE Urine Phencyclidine Screen NEGATIVE NEGATIVE Urine Amphetamines Screen NEGATIVE NEGATIVE Urine Methamphetamines Screen NEGATIVE NEGATIVE Urine Benzodiazepines Screen NEGATIVE NEGATIVE Urine Cocaine Screen NEGATIVE NEGATIVE Urine Cannabinoids Screen POSITIVE H NEGATIVE My Orders Orders - DAO,GARY [employer] Lorazepam Tablet (Ativan Tablet) (01/30/19 21:30) Chest 1 View, Ap/Pa Only (01/30/19 21:51) Medications Given in ED Current Medications Medications Dose Ordered Sig/Kaushal Route Start Time Stop Time Status Last Admin Dose Admin Aspirin 325 mg ONCE ONCE PO 01/30/19 21:00 01/30/19 21:01 DC 01/30/19 21:31 325 MG Lorazepam 0.5 mg ONCE ONCE PO 01/30/19 21:30 01/30/19 21:31 DC 01/30/19 21:31 0.5 MG Vital Signs/I&O 01/30/19 01/30/19 20:45 20:47 Temp 97.9 Pulse 105 Resp 22 B/P (MAP) 153/107 (122) Pulse Ox 100 98 O2 Delivery Room Air Room Air Progress Progress Note : Time: 20:50 Progress Note Patient seen and evaluated, chest pain workup started. Labs will be drawn, chest x-ray, EKG. Aspirin 325 mg orally. 2119 patient reports to Ken CALLAHAN that she is having an anxiety attack and not truly having chest pain, she wishes to leave AMA, she refuses chest x-ray, she is embarrassed by her behavior. This provider spoke with the patient at length, I assured her that whether she is having chest pain or anxiety we need to complete our assessment and labs on her. She reports increased stress in her life, unhealthy behaviors (eating, less exercise, marijuana usage, etc). She agreed to stay and have her full workup. We will give Ativan 0.5 mg for anxiety. She is agreeable to chest x-ray. 2144 patient resting with her eyes closed, no signs of distress, 2229 patient easily arousable, reports that she slept for a short time and feels much better. Her heart rate is in the 80s. Her labs are all essentially normal with the exception of an amylase of 194 no lipase at 536. She is having no abdominal pain, reflux, diarrhea, or abdominal distention. She has a past history of pancreatitis and states that her current symptoms are not at all similar. She's had a previous cholecystectomy. Reviewed these labs with Dr. Dominguez , agreed with conservative care at this time. 2299 the patient will follow up with her primary care provider regarding the stress and anxiety, and elevated lipase/amylase. She will decrease her caffeine and vaping. Discharge instructions and return precautions reviewed with her in detail. Initial ECG Impression Date: Jan 30, 2019 Initial ECG Impression Time: 20:47 Initial ECG Rate: 101 Initial ECG Rhythm: S.Tach Initial ECG Intervals: Normal Initial ECG Intervals Reviewed with Dr. Dominguez, concurred with interpretation. Initial ECG Impression: Normal Initial ECG Comparisson: Unchanged Departure Impression Primary Impression: Generalized anxiety disorder with panic attacks Additional Impression: Heart palpitations Disposition: 01 HOME, SELF-CARE Condition: Improved Departure-Patient Inst. Decision time for Depature: 22:40 [facility] Primary Care Physician Patient Instructions: Palpitations (DC), Anxiety, Adult (DC), Panic Disorder ( DC), Stress Add. Discharge Instructions: Follow-up with your primary care provider at [facility] regarding anxiety and elevated lipase and amylase. Decrease your caffeine use and Vaping. Work on stress management and healthier lifestyle choices. Take time for yourself each day. Consider Yoga or Meditation. Consider seeing counselor, at [facility] or [facility]. Return to emergency department for difficulty breathing, chest pain, abdominal pain, fever greater than 101, or new problems. All discharge instructions reviewed with patient and/or family. Voiced understanding. Copy Copies To 1: ARTURO BECKFORD AMY ARNP Jan 30, 2019 20:59
[2019-01-30] MEDS ORDERED: NITROGLYCERIN 0.4 MG SL TABS BTL 25'S SL PRN (21:00)
[2019-01-30] MEDS ORDERED: ASPIRIN 81 MG CHEW (CHILDREN'S ASA) PO ONE (21:00)
[2019-01-30 21:03] LABS: BASOPHILS % (AUTO) 1 % (0-10); EOSINOPHILS # (AUTO) 0.1 10^3/uL (0.0-0.3); EOSINOPHILS % (AUTO) 2 % (0-10); HEMATOCRIT 41 % (35-52); HEMOGLOBIN 14.4 G/DL (11.5-16.0); LYMPHOCYTES # (AUTO) 3.9 X 10^3 (1.0-4.0); LYMPHOCYTES % (AUTO) 51 % (12-44); MEAN CORPUSCULAR HEMOGLOBIN 33 PG (25-34); MEAN CORPUSCULAR HGB CONC 35 G/DL (32-36); MEAN CORPUSCULAR VOLUME 94 FL (80-99); MEAN PLATELET VOLUME 9.1 FL (7.4-10.4); MONOCYTES # (AUTO) 0.5 X 10^3 (0.0-1.0); MONOCYTES % (AUTO) 7 % (0-12); NEUTROPHILS # (AUTO) 3.1 X 10^3 (1.8-7.8); NEUTROPHILS % (AUTO) 41 % (42-75); PLATELET COUNT 256 10^3/uL (130-400); RED CELL DISTRIBUTION WIDTH 12.2 % (10.0-14.5); WHITE BLOOD COUNT 7.7 10^3/uL (4.3-11.0)
--- OUTSIDE RECORDS SUMMARY | 2019-01-30 21:05 | XMS REPORT ---
Author Author BENITA POE [facility] Address [address] [place] [address] Care Team Providers Care Car Wash Supervisor Name Role Phone BENITA POE Unavailable PROBLEMS Type Condition ICD9-CM Code [id number] Code Onset Dates Condition Status SNOMED Code Problem History of anemia Z86.2 Active 386248166 Problem Post-menopausal Z78.0 Active 44637021 Problem Myalgia M79.1 Active 22676073 Problem History of pancreatitis Z87.19 Active 64572306382602 Problem PVCs (premature ventricular contractions) I49.3 Active 44250363 Problem Anxiety F41.9 Active 92717488 Problem Dysthymia F34.1 Active 86722449 Problem Arthralgia, unspecified joint M25.50 Active 98567341 Problem Vaginal dryness, menopausal N95.1 Active 36305539 Problem Migraine without status migrainosus, not intractable, unspecified migraine type G43.909 Active 20758821 ALLERGIES No Known Allergies ENCOUNTERS Encounter Location Date Diagnosis [facility] [id number] [place] [address] Sep, Acute sinusitis J01.90 [facility] [id number] [place] [address] Aug, Arthralgia, unspecified joint M25.50 ; Chest wall pain R07.89 and Post-menopausal Z78.0 [facility] [address] [address] Apr, [facility] [address] [address] Apr, Shortness of breath R06.02 and PVCs (premature ventricular contractions) I49.3 [facility] [address] [address] Jan, Dysthymia F34.1 ; Arthralgia, unspecified joint M25.50 ; Anxiety F41.9 and BMI 40.0-44.9, adult Z68.41 [facility] [place] [id number] [place] [address] Dec, Encounter for immunization Z23 [place] [address] [address] Nov, Chondromalacia, right knee M94.261 [facility] [address] [id number] Nov, Encounter for dental examination Z01.20 [place] [address] [address] Sep, Right anterior knee pain M25.561 and BMI 40.0-44.9, adult Z68.41 [place] [address] [address] Apr, [place] [address] [address] Apr, Skin tag L91.8 [place] [address] [address] Apr, Arthralgia, unspecified joint M25.50 ; Myalgia M79.1 ; Dysthymia F34.1 ; Post-menopausal Z78.0 and Tick bite, subsequent encounter W57.XXXD [place] [id number] [place] [address] March, Myalgia M79.1 [facility] IN [place] [address] [address] March, Pharyngitis due to other organism J02.8 [facility] [place] [id number] [place] [address] Nov, Acute bronchitis, unspecified organism J20.9 [facility] [id number] [place] [address] Nov, Sore throat J02.9 [place] [id number] [place] [address] Oct, [place] [id number] [place] [address] Oct, Post-menopausal Z78.0 ; Vaginal dryness, menopausal N95.1 ; General medical exam Z00.00 ; Screening for breast cancer Z12.39 ; Benign skin lesion of lower back L98.9 ; Encounter for immunization Z23 and Routine gynecological examination Z01.419 [place] [id number] [place] [address] Oct, [facility] [id number] [place] [address] Aug, Acute non-recurrent maxillary sinusitis J01.00 [place] [id number] [place] [address] Jul, Myalgia M79.1 [place] [id number] [place] [address] Jun, Arthralgia, unspecified joint M25.50 ; Myalgia M79.1 and Migraine without status migrainosus, not intractable, unspecified migraine type G43.909 [place] [id number] [place] [address] Jun, Arthralgia, unspecified joint M25.50 and Myalgia M79.1 [place] [id number] [place] [address] Jun, [place] [id number] [place] [address] Jun, Post-menopausal Z78.0 ; Arthralgia, unspecified joint M25.50 and Myalgia M79.1 [place] [address] [address] Jun, [facility] [address] [address] May, Dysthymia F34.1 ; Post-menopausal Z78.0 ; History of anemia Z86.2 ; Arthralgia, unspecified joint M25.50 and Myalgia M79.1 [facility] [address] [address] Apr, Low back pain M54.5 [place] [address] [address] March, Lower abdominal pain R10.30 and Dysuria R30.0 [place] [address] [address] Dec, [facility] [address] [address] Oct, Bronchitis J40 [place] [address] [address] Sep, [facility] [address] [id number] Sep, Dental examination Z01.20 [facility] [address] [id number] Aug, Encounter for dental examination Z01.20 [place] [address] [address] May, 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 [place] [address] [address] May, [place] [address] [address] Apr, Abnormal glucose measurement 790.29 ; Difficulty sleeping 780.50 and Chest tightness 786.59 [place] [address] [place] [address] [address] Apr, 2015 Routine gynecological examination V72.31 ; Breast cancer screening V76.10 and Postmenopausal atrophic vaginitis 627.3 [facility] [address] [address] March, [facility] [id number] [address] March, Anemia 285.9 ; Cough 786.2 ; Snoring 786.09 ; Fatigue 780.79 and Upper respiratory infection 465.9 [facility] [address] [address] Dec, [facility] [id number] [place] [address] Dec, [facility] [id number] [address] Dec, [facility] [id number] [place] [address] Dec, [facility] [address] [address] Oct, [facility] [id number] [address] Oct, [facility] [address] [address] Oct, [facility] [address] [place] [address] Sep, [facility] [address] [address] Sep, [facility] [id number] [address] Sep, [facility] [address] [id number] [address] Aug, IMMUNIZATIONS No Known Immunizations SOCIAL HISTORY Never Assessed REASON FOR VISIT sore throat and cough/cold started yesterday JStrasserRN PLAN OF CARE Activity Details Follow Up if not improving with PCP or reg follow up Reason: VITAL SIGNS Height 57 in 2018-09-09 Weight 174.0 lbs 2018-09-09 Temperature 96.9 degrees Fahrenheit 2018-09-09 Heart Rate 80 bpm 2018-09-09 Respiratory Rate 20 2018-09-09 BMI 37.65 kg/m2 2018-09-09 Blood pressure systolic 110 mmHg 2018-09-09 Blood pressure diastolic 70 mmHg 2018-09-09 MEDICATIONS Medication Instructions Dosage Frequency Start Date End Date Duration Status Celebrex 200 MG Orally Once a day 1 capsule with food 24h Jan, Active Premarin 0.625 MG/GM Vaginal 2-3 times a week administer 1 gram to vaginal mucosa Active Stool Softener 100 MG Orally Once a day 1 capsule as needed 24h Active PredniSONE 20 MG Orally Once a day 2 tablet 24h Sep, 5 days Active Paxil 20 MG TAKE ONE TABLET BY MOUTH ONCE DAILY IN THE MORNING 30 Active HydrOXYzine HCl 25 MG Orally every 8 hrs 1 tablet as needed 8h Jan, 30 day(s) Active Vitamin D 2000 UNIT Orally Once a day 1 tablet 24h Active RESULTS No Results PROCEDURES No Known procedures INSTRUCTIONS MEDICATIONS ADMINISTERED No Known Medications MEDICAL (GENERAL) HISTORY Type Description Date Medical History PTSD Medical History anxiety Medical History mood disorder Medical History adjustment disorder Medical History diverticulosis Medical History iron deficiency anemia Medical History back pain Medical History Abnormal glucose measurement Surgical History hysterectomy 2005 Surgical History bowel surgery- cecoectomy 1993 Surgical History left knee arthroscopy Surgical History gal bladder removed 04/29/2018 Hospitalization History surgery
--- OUTSIDE RECORDS SUMMARY | 2019-01-30 21:05 | XMS REPORT ---
Author Author GORDO MARTINEZ Organization [facility] Address [address] [place] [address] Care Team Providers Care Used Car Renovator Name Role Phone RAAD MARTINEZTA Unavailable PROBLEMS Type Condition ICD9-CM Code IVG46-SL Code Onset Dates Condition Status SNOMED Code Problem History of anemia Z86.2 Active 795273538 Problem Post-menopausal Z78.0 Active 64980382 Problem Myalgia M79.1 Active 24936813 Problem History of pancreatitis Z87.19 Active 49839429277277 Problem PVCs (premature ventricular contractions) I49.3 Active 79392866 Problem Anxiety F41.9 Active 29677100 Problem Dysthymia F34.1 Active 99408471 Problem Arthralgia, unspecified joint M25.50 Active 12137168 Problem Vaginal dryness, menopausal N95.1 Active 62173108 Problem Migraine without status migrainosus, not intractable, unspecified migraine type G43.909 Active 22694327 ALLERGIES No Known Allergies ENCOUNTERS Encounter Location Date Diagnosis [facility] [address] [address] Aug, Arthralgia, unspecified joint M25.50 ; Chest wall pain R07.89 and Post-menopausal Z78.0 [facility] [address] [id number] [place] [address] Apr, [facility] [address] [address] Apr, Shortness of breath R06.02 and PVCs (premature ventricular contractions) I49.3 [facility] [address] [address] Jan, Dysthymia F34.1 ; Arthralgia, unspecified joint M25.50 ; Anxiety F41.9 and BMI 40.0-44.9, adult Z68.41 [facility] [id number] [place] [address] Dec, Encounter for immunization Z23 [facility] [address] [address] Nov, Chondromalacia, right knee M94.261 [facility] [address] [id number] Nov, Encounter for dental examination Z01.20 [place] [address] [address] Sep, Right anterior knee pain M25.561 and BMI 40.0-44.9, adult Z68.41 [place] [address] [address] Apr, [place] [address] [address] Apr, Skin tag L91.8 [place] [address] [address] Apr, Arthralgia, unspecified joint M25.50 ; Myalgia M79.1 ; Dysthymia F34.1 ; Post-menopausal Z78.0 and Tick bite, subsequent encounter W57.XXXD [place] [id number] [place] [address] March, Myalgia M79.1 [facility] [address] [place] [id number] [place] [address] March, Pharyngitis due to other organism J02.8 [facility] [address] [address] Nov, Acute bronchitis, unspecified organism J20.9 [facility] [place] [id number] [place] [address] Nov, Sore throat J02.9 [place] [id number] [place] [address]- [address] Oct, [place] [address] [address] Oct, Post-menopausal Z78.0 ; Vaginal dryness, menopausal N95.1 ; General medical exam Z00.00 ; Screening for breast cancer Z12.39 ; Benign skin lesion of lower back L98.9 ; Encounter for immunization Z23 and Routine gynecological examination Z01.419 [place] [id number] [place] [address] Oct, [facility] [address] [address] Aug, Acute non-recurrent maxillary sinusitis J01.00 [place] [id number] [place] [address]28[address] Jul, Myalgia M79.1 [place] [id number] [place] [address]66- [address] Jun, Arthralgia, unspecified joint M25.50 ; Myalgia M79.1 and Migraine without status migrainosus, not intractable, unspecified migraine type G43.909 [place] [id number] [place] [address]26- [address] Jun, Arthralgia, unspecified joint M25.50 and Myalgia M79.1 [place] [id number] [place] [address] 8[address]90- [address] Jun, [place] [id number] [place] [address]66- [address] Jun, Post-menopausal Z78.0 ; Arthralgia, unspecified joint M25.50 and Myalgia M79.1 [place] [id number] [place] [address]- [address] Jun, [place] [id number] [place] [address]32- 65[address] May, Dysthymia F34.1 ; Post-menopausal Z78.0 ; History of anemia Z86.2 ; Arthralgia, unspecified joint M25.50 and Myalgia M79.1 [facility] [id number] [place] [address] Apr, Low back pain M54.5 [place] [address] [address] March, Lower abdominal pain R10.30 and Dysuria R30.[address] [address] Dec, [facility] [id number] [place] [address] Oct, Bronchitis J40 [place] [address] [address] Sep, [facility] [address] [id number] Sep, Dental examination Z01.20 [facility] [address] [id number] Aug, Encounter for dental examination Z01.20 [place] [address] [address] May, [place]'s gland cyst 599.89 [place] [address] [address] May, [place] [address] [address] Apr, Abnormal glucose measurement 790.29 ; Difficulty sleeping 780.50 and Chest tightness 786.59 [place] [address] [address] 04 Apr, 2015 Routine gynecological examination V72.31 ; Breast cancer screening V76.10 and Postmenopausal atrophic vaginitis 627.3 [facility] [address] [address] March, [facility] [id number] [place] [address] March, Anemia 285.9 ; Cough 786.2 ; Snoring 786.09 ; Fatigue 780.79 and Upper respiratory infection 465.9 [facility] [id number] [place] [address] 73662- [address] Dec, [facility] [id number] [place] [address] 96720- [address] Dec, [facility] [id number] [place] [address]600- 12[address] Dec, [facility] [id number] [place] [address]15- [address] Dec, [facility] [id number] [place] [address] 21132- 25[address] Oct, [facility] [id number] [place] [address] 42786- 9708 Oct, [facility] [id number] [place] [address] 97[address]- [address]28 Oct, [facility] [id number] [place] [address] 68245- 6071 Sep, [facility] [id number] [place] [address]- [address] Sep, [facility] [address] [id number] [address] Sep, [facility] [id number] [place] [address] Aug, IMMUNIZATIONS Vaccine Route Administration Date Status TORADOL (IM) 60 MG/2ML (UP TO 15 MG) IM Intramuscular Aug 31, 2018 Administered SOCIAL HISTORY Never Assessed REASON FOR VISIT Pain in her left armpit, radiates around to her breast since Thursday. Also is needing some of her medications refilled Figueroa Tay MA PLAN OF CARE Activity Details Follow Up if not improving with PCP or reg follow up Reason: VITAL SIGNS Height 57 in 2018-08-31 Weight 169.7 lbs 2018-08-31 Temperature 97.9 degrees Fahrenheit 2018-08-31 Heart Rate 80 bpm 2018-08-31 Respiratory Rate 20 2018-08-31 BMI 36.72 kg/m2 2018-08-31 Blood pressure systolic 122 mmHg 2018-08-31 Blood pressure diastolic 74 mmHg 2018-08-31 MEDICATIONS Medication Instructions Dosage Frequency Start Date End Date Duration Status Paxil 20 MG TAKE ONE TABLET BY MOUTH ONCE DAILY IN THE MORNING 30 Active Premarin 0.625 MG/GM Vaginal 2-3 times a week administer 1 gram to vaginal mucosa Active HydrOXYzine HCl 25 MG Orally every 8 hrs 1 tablet as needed 8h Jan, 30 day(s) Active Vitamin D 2000 UNIT Orally Once a day 1 tablet 24h Active Celebrex 200 MG Orally Once a day 1 capsule with food 24h Jan, Active Stool Softener 100 MG Orally Once a day 1 capsule as needed 24h Active RESULTS Name Result Date Reference Range Xray : Chest 2 View (IN HOUSE) 2018-08-31 PROCEDURES Procedure Date Ordered Result Body Site EKG, TRACING (IN-HOUSE) 2018-08-31 Normal X-RAY EXAM CHEST 2 VIEWS Aug 31, 2018 TORADOL (IM) 60 MG/2ML (UP TO 15 MG) Aug 31, 2018 ELECTROCARDIOGRAM, TRACING Aug 31, 2018 THER/PROPH/DIAG INJ, SC/IM Aug 31, 2018 INSTRUCTIONS MEDICATIONS ADMINISTERED No Known Medications MEDICAL [...]
--- OUTSIDE RECORDS SUMMARY | 2019-01-30 21:05 | XMS REPORT ---
Author Author J LUIS YATES Organization [facility] Address [address] [place] [address] Care Team Providers Care Family And Consumer Sciences Teacher Name Role Phone J LUIS YATES Unavailable PROBLEMS Type Condition ICD9-CM Code KQY11-AT Code Onset Dates Condition Status SNOMED Code Problem History of anemia Z86.2 Active 624770621 Problem Post-menopausal Z78.0 Active 00483292 Problem Myalgia M79.1 Active 66361185 Problem History of pancreatitis Z87.19 Active 82050605284095 Problem PVCs (premature ventricular contractions) I49.3 Active 89306914 Problem Anxiety F41.9 Active 58121210 Problem Dysthymia F34.1 Active 51672295 Problem Arthralgia, unspecified joint M25.50 Active 70004128 Problem Vaginal dryness, menopausal N95.1 Active 99790355 Problem Migraine without status migrainosus, not intractable, unspecified migraine type G43.909 Active 40018054 ALLERGIES No Information ENCOUNTERS Encounter Location Date Diagnosis [facility] [address] [address] Apr, [facility] [address] [place] [id number] [place] [address] Apr, Shortness of breath R06.02 and PVCs (premature ventricular contractions) I49.3 [facility] [address] [place] [address] [id number] [place] [address]67- [address] Jan, Dysthymia F34.1 ; Arthralgia, unspecified joint M25.50 ; Anxiety F41.9 and BMI 40.0-44.9, adult Z68.41 [facility] [address] [address] 05 Dec, 2017 Encounter for immunization Z23 [facility] [address] [id number] [place] [address] Nov, Chondromalacia, right knee M94.261 [facility] [address] [id number] Nov, Encounter for dental examination Z01.20 [facility] [address] [address] Sep, Right anterior knee pain M25.561 and BMI 40.0-44.9, adult Z68.41 [place] [address] [address] Apr, [place] [address] [address] Apr, Skin tag L91.[address] [address] Apr, Arthralgia, unspecified joint M25.50 ; Myalgia M79.1 ; Dysthymia F34.1 ; Post-menopausal Z78.0 and Tick bite, subsequent encounter W57.XXXD [address] [address] March, Myalgia M79.1 [facility] [address] [place] [id number] [place] [address] March, Pharyngitis due to other organism J02.8 [facility] [address] [place] [address] Nov, Acute bronchitis, unspecified organism J20.9 [facility] [address] [address] Nov, Sore throat J02.9 [place] [address] [address] Oct, [place] [address] [address] Oct, Post-menopausal Z78.0 ; Vaginal dryness, menopausal N95.1 ; General medical exam Z00.00 ; Screening for breast cancer Z12.39 ; Benign skin lesion of lower back L98.9 ; Encounter for immunization Z23 and Routine gynecological examination Z01.419 [place] [id number] [place] [address]54- [address]017 Oct, [facility] [address] [address] Aug, Acute non-recurrent maxillary sinusitis J01.00 [place] [address] [address] Jul, Myalgia M79.1 [place] [address] [place] [address] [id number] [place] [address] 48286- 0532 Jun, Arthralgia, unspecified joint M25.50 ; Myalgia M79.1 and Migraine without status migrainosus, not intractable, unspecified migraine type G43.909 [place] [address] [id number] [place] [address] 50260- 2671 Jun, Arthralgia, unspecified joint M25.50 and Myalgia M79.1 [place] [address] [address] [id number] [place] [address] 21315- 3895 Jun, [place] [address] [address] Jun, Post-menopausal Z78.0 ; Arthralgia, unspecified joint M25.50 and Myalgia M79.1 [place] [address] [place] [id number] [place] [address] 58826- 9798 Jun, [place] [address] [address]- [address] May, Dysthymia F34.1 ; Post-menopausal Z78.0 ; History of anemia Z86.2 ; Arthralgia, unspecified joint M25.50 and Myalgia M79.1 [facility] [id number] [place] [address]55 [address] Apr, Low back pain M54.5 [facility] [address] [address] March, Lower abdominal pain R10.30 and Dysuria R30.0 [facility] [address] [address]- [address] Dec, [facility] [address] [address] Oct, Bronchitis J40 [facility] [address] [address]- [address] Sep, [facility] [address] [id number] Sep, Dental examination Z01.20 [facility] [address] [id number] Aug, Encounter for dental examination Z01.20 [facility] [address] [address]- [address] May, [place]'s gland cyst 599.89 [facility] [address] 818[address]- 65[address] May, [facility] [address] 939[address]- 1134 Apr, Abnormal glucose measurement 790.29 ; Difficulty sleeping 780.50 and Chest tightness 786.59 [facility] [address] [address]- [address] Apr, Routine gynecological examination V72.31 ; Breast cancer screening V76.10 and Postmenopausal atrophic vaginitis 627.3 [place] [address] [address]- [address] March, [facility] [address] [address] March, Anemia 285.9 ; Cough 786.2 ; Snoring 786.09 ; Fatigue 780.79 and Upper respiratory infection 465.9 [facility] [address] [address] Dec, [facility] [address] Dec, [facility] [id number] [place] [address] 901914- 7330 Dec, [facility] [address] [address]- [address] Dec, [facility] [id number] [place] [address] 73309- 8431 Oct, [facility] [address] Oct, [facility] [address] [id number] [place] [address] 18447- 5307 Oct, [facility] [address] Sep, [facility] [address] [address] Sep, [facility] [address] [address] Sep, [facility] [address] [address] Aug, IMMUNIZATIONS No Known Immunizations SOCIAL HISTORY Never Assessed REASON FOR VISIT Requests return call PLAN OF CARE VITAL SIGNS MEDICATIONS Unknown [...]
--- OUTSIDE RECORDS SUMMARY | 2019-01-30 21:05 | XMS REPORT ---
Author Author J LUIS YATES Organization [facility] Address [address] [place] [address] Care Team Providers Care Motor Tester Name Role Phone J LUIS YATES Unavailable PROBLEMS Type Condition ICD9-CM Code ZYA43-VB Code Onset Dates Condition Status SNOMED Code Problem History of anemia Z86.2 Active 824023058 Problem Post-menopausal Z78.0 Active 20690918 Problem Myalgia M79.1 Active 81626451 Problem History of pancreatitis Z87.19 Active 19766548075750 Problem PVCs (premature ventricular contractions) I49.3 Active 84795325 Problem Anxiety F41.9 Active 92360782 Problem Dysthymia F34.1 Active 72404828 Problem Arthralgia, unspecified joint M25.50 Active 73835187 Problem Vaginal dryness, menopausal N95.1 Active 01260481 Problem Migraine without status migrainosus, not intractable, unspecified migraine type G43.909 Active 92253146 ALLERGIES No Known Allergies ENCOUNTERS Encounter Location Date Diagnosis [facility] [id number] [place] [address] 68397- 5492 Apr, [facility] [id number] [place] [address] 82348 -9370 Apr, Shortness of breath R06.02 and PVCs (premature ventricular contractions) I49.3 [facility] [id number] [place] [address] 90853- 4605 Jan, Dysthymia F34.1 ; Arthralgia, unspecified joint M25.50 ; Anxiety F41.9 and BMI 40.0-44.9, adult Z68.41 [facility] [id number] [place] [address] 87532 -8598 05 Dec, 2017 Encounter for immunization Z23 [facility] [id number] [place] [address] 51446- 9261 Nov, Chondromalacia, right knee M94.261 [facility] [address] [id number] Nov, Encounter for dental examination Z01.20 [facility] [address] [address]- 2776 Sep, Right anterior knee pain M25.561 and BMI 40.0-44.9, adult Z68.[address] [address]- 8040 Apr, [address] 42313- 7139 Apr, Skin tag L91.[address] 10737- 9705 Apr, Arthralgia, unspecified joint M25.50 ; Myalgia M79.1 ; Dysthymia F34.1 ; Post-menopausal Z78.0 and Tick bite, subsequent encounter W57.XXXD [address] 59785- 7955 March, Myalgia M79.1 [facility] [place] [id number] [place] [address] 45554 -1289 March, Pharyngitis due to other organism J02.8 [facility] [address] [place] [address] 31484 -9506 Nov, Acute bronchitis, unspecified organism J20.9 [facility] [address] [address]07 Nov, Sore throat J02.9 [place] [address] [address]- 8989 Oct, [address] 98732- 1549 Oct, Post-menopausal Z78.0 ; Vaginal dryness, menopausal N95.1 ; General medical exam Z00.00 ; Screening for breast cancer Z12.39 ; Benign skin lesion of lower back L98.9 ; Encounter for immunization Z23 and Routine gynecological examination Z01.419 [facility] [id number] [place] [address] 81654- 1015 Oct, [facility] [address] 401[address]47[address] Aug, Acute non-recurrent maxillary sinusitis J01.00 [place] [address] 43012- 4300 Jul, Myalgia M79.1 [place] [id number] [place] [address] 38525- 2604 Jun, Arthralgia, unspecified joint M25.50 ; Myalgia M79.1 and Migraine without status migrainosus, not intractable, unspecified migraine type G43.909 [place] [id number] [place] [address] 88292- 2165 Jun, Arthralgia, unspecified joint M25.50 and Myalgia M79.1 [place] [id number] [place] [address] 70057- 5529 Jun, [place] [address] 91565- 1770 Jun, Post-menopausal Z78.0 ; Arthralgia, unspecified joint M25.50 and Myalgia M79.1 [place] [address] 67912- 7903 Jun, [place] [address] 17431- 2511 May, Dysthymia F34.1 ; Post-menopausal Z78.0 ; History of anemia Z86.2 ; Arthralgia, unspecified joint M25.50 and Myalgia M79.1 [facility] [id number] [place] [address] 38794 -0611 Apr, Low back pain M54.5 [facility] [id number] [place] [address] 10596- 9225 March, Lower abdominal pain R10.30 and Dysuria R30.0 [facility] [address] 05647- 6490 Dec, [facility] [id number] [place] [address] 13031 -8175 Oct, Bronchitis J40 [facility] [address] 19174- 5029 Sep, [facility] [address] [id number] Sep, Dental examination Z01.20 [facility] [address] [id number] Aug, Encounter for dental examination Z01.20 [facility] [address] 49378- 8801 May, Bonifay'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09 ; Fatigue 780.79 and Upper respiratory infection 465.9 [facility] [id number] [place] [address] [phone]- 9605 Dec, [facility] [id number] [place] [address] 35691- 4416 Dec, [facility] [id number] [place] [address] 48584- 1594 Dec, [facility] [id number] [place] [address] 739397- 6354 Dec, [facility] [id number] [place] [address] 020540- 3945 Oct, [facility] [id number] [place] [address] 61171- 2802 Oct, [facility] [id number] [place] [address] 573914- 0587 Oct, [facility] [id number] [place] [address] 84165- 5942 Sep, [facility] [id number] [place] [address] 48231- 9911 Sep, [facility] [address] [place] [address] 49716- 4062 Sep, [facility] [id number] [place] [address] 523432- 6145 Aug, IMMUNIZATIONS No Known Immunizations SOCIAL HISTORY Never Assessed REASON FOR VISIT Shortness of breath, dizziness, feels like heart is skipping beats started today JStrasserRN PLAN OF CARE Activity Details Follow Up w/ PCP, prn Reason:pending lab results VITAL SIGNS Height 57 in 2018-04-07 Weight 182.6 lbs 2018-04-07 Heart Rate 60 bpm 2018-04-07 Respiratory Rate 20 2018-04-07 BMI 39.51 kg/m2 2018-04-07 Blood pressure systolic 110 mmHg 2018-04-07 Blood pressure diastolic 78 mmHg 2018-04-07 MEDICATIONS Medication Instructions Dosage Frequency Start Date End Date Duration Status Iron 325 (65 Fe) MG Orally Once a day 1 tablet 24h Active Celebrex 100 mg Orally twice a day 1 capsule with food 12h Jan, Active HydrOXYzine HCl 25 MG Orally every 8 hrs 1 tablet as needed 8h Jan, 30 day(s) Active Premarin 0.625 MG/GM Vaginal 2-3 times a week administer 1 gram to vaginal mucosa Active Paxil 20 MG TAKE ONE TABLET BY MOUTH ONCE DAILY IN THE MORNING 30 Active Vitamin D 2000 UNIT Orally Once a day 1 tablet 24h Active Stool Softener 100 MG Orally Once a day 1 capsule as needed 24h Active Meloxicam 10 MG Orally Once a day 1 capsule 24h Active Amitriptyline HCl 25 MG Orally Once a day 1 tablet 24h Jul, 30 days Active RESULTS No Results PROCEDURES Procedure Date Ordered Result Body Site EKG, TRACING (IN-HOUSE) 2018-04-07 N/A ELECTROCARDIOGRAM, TRACING April 07, 2018 COMPREHEN METABOLIC PANEL April 07, 2018 COMPLETE CBC W/AUTO DIFF WBC April 07, 2018 VENIPUNCT, ROUTINE* April 07, 2018 INSTRUCTIONS MEDICATIONS ADMINISTERED No Known Medications [...]
--- OUTSIDE RECORDS SUMMARY | 2019-01-30 21:06 | XMS REPORT ---
Author Author TRAVIS HUIZAR Organization [facility] Address [address] [place] [address] Care Team Providers Care Machine Cloth Trimmer Name Role Phone TRAVIS HUIZAR Unavailable PROBLEMS Type Condition ICD9-CM Code XFS16-MW Code Onset Dates Condition Status SNOMED Code Problem History of anemia Z86.2 Active 321690807 Problem Post-menopausal Z78.0 Active 49639828 Problem Myalgia M79.1 Active 73516641 Problem History of pancreatitis Z87.19 Active 46820807481174 Problem PVCs (premature ventricular contractions) I49.3 Active 82437539 Problem Anxiety F41.9 Active 38349853 Problem Dysthymia F34.1 Active 01510339 Problem Arthralgia, unspecified joint M25.50 Active 38710998 Problem Vaginal dryness, menopausal N95.1 Active 95516464 Problem Migraine without status migrainosus, not intractable, unspecified migraine type G43.909 Active 23228038 ALLERGIES No Known Allergies ENCOUNTERS Encounter Location Date Diagnosis [facility] [address] [place] [address] 10450- 0012 Apr, [facility] [address] [place] [address] 35873 -6179 Apr, Shortness of breath R06.02 and PVCs (premature ventricular contractions) I49.3 [facility] [address] [place] [address] 10492- 6373 Jan, Dysthymia F34.1 ; Arthralgia, unspecified joint M25.50 ; Anxiety F41.9 and BMI 40.0-44.9, adult Z68.41 [facility] [id number] [place] [address] 24537 -6205 05 Dec, 2017 Encounter for immunization Z23 [facility] [id number] [place] [address] 29979- 2120 Nov, Chondromalacia, right knee M94.261 [facility] [address] [id number] Nov, Encounter for dental examination Z01.[address] 25530- 0910 Sep, Right anterior knee pain M25.561 and BMI 40.0-44.9, adult Z68.[address] 01866- 3937 Apr, [address] 15632- 0561 Apr, Skin tag L91.[address] 30970- 7078 Apr, Arthralgia, unspecified joint M25.50 ; Myalgia M79.1 ; Dysthymia F34.1 ; Post-menopausal Z78.0 and Tick bite, subsequent encounter W57.XXXD [address] 74272- 4926 March, Myalgia M79.1 [facility] [place] [id number] [place] [address] 50533 -5567 March, Pharyngitis due to other organism J02.8 [facility] [place] [id number] [place] [address] 63645 -0861 Nov, Acute bronchitis, unspecified organism J20.9 [facility] [address] 73468 -5522 Nov, Sore throat J02.9 [place] [address] 71073- 7930 Oct, [address] 01286- 7068 Oct, Post-menopausal Z78.0 ; Vaginal dryness, menopausal N95.1 ; General medical exam Z00.00 ; Screening for breast cancer Z12.39 ; Benign skin lesion of lower back L98.9 ; Encounter for immunization Z23 and Routine gynecological examination Z01.419 [facility] [id number] [place] [address] 77642- 5761 Oct, [facility] [address] 49183 -7049 Aug, Acute non-recurrent maxillary sinusitis J01.00 [place] [address] 33569- 4844 Jul, Myalgia M79.1 [place] [id number] [place] [address] 86393- 4696 Jun, Arthralgia, unspecified joint M25.50 ; Myalgia M79.1 and Migraine without status migrainosus, not intractable, unspecified migraine type G43.909 [place] [id number] [place] [address] 10530- 5045 Jun, Arthralgia, unspecified joint M25.50 and Myalgia M79.1 [place] [id number] [place] [address] 65606- 9482 Jun, [place] [address] 30957- 7238 Jun, Post-menopausal Z78.0 ; Arthralgia, unspecified joint M25.50 and Myalgia M79.1 [place] [address] 11418- 0630 Jun, [place] [address] 72920- 1049 May, Dysthymia F34.1 ; Post-menopausal Z78.0 ; History of anemia Z86.2 ; Arthralgia, unspecified joint M25.50 and Myalgia M79.1 [facility] [id number] [place] [address] 95772 -3645 Apr, Low back pain M54.5 [facility] [id number] [place] [address] 14676- 2989 March, Lower abdominal pain R10.30 and Dysuria R30.0 [facility] [address] 45435- 3579 Dec, [facility] [id number] [place] [address] 21882 -9853 Oct, Bronchitis J40 [facility] [address] 84093- 9229 Sep, [facility] [address] [id number] Sep, Dental examination Z01.20 [facility] [address] [id number] Aug, Encounter for dental examination Z01.20 [facility] [id number] [place] [address] 35283- 8184 May, Bowmore's gland cyst 599.89 [place] [id number] [place] [address] 19574- 8460 May, [facility] [address] 46166- 1842 Apr, Abnormal glucose measurement 790.29 ; Difficulty sleeping 780.50 and Chest tightness 786.59 [place] [id number] [place] [address] 67498- 1469 Apr, Routine gynecological examination V72.31 ; Breast cancer screening V76.10 and Postmenopausal atrophic vaginitis 627.3 [place] [address] 55638- 7786 March, [facility] [address] 96377- 9447 March, Anemia 285.9 ; Cough 786.2 ; Snoring 786.09 ; Fatigue 780.79 and Upper respiratory infection 465.9 [facility] [address] [place] [address] 47105- 6366 Dec, [facility] [id number] [place] [address] 11403- 5090 Dec, [facility] [id number] [place] [address] 61716- 6517 Dec, [facility] [id number] [place] [address] 86340- 5556 Dec, [facility] [id number] [place] [address] 57861- 2909 Oct, [facility] [id number] [place] [address] 83222- 4307 Oct, [facility] [id number] [place] [address] 26349- 6536 Oct, [facility] [id number] [place] [address] 28740- 9330 Sep, [facility] [id number] [place] [address] 34890- 4623 Sep, [facility] [address] [place] [address] 91041- 3365 Sep, [facility] [address] [place] [address] 51899- 0016 Aug, IMMUNIZATIONS No Known Immunizations SOCIAL HISTORY Never Assessed REASON FOR VISIT depression--per action--jesusanssenMA, --needs medication check, pt denies any concerns. , --body pain is back. PLAN OF CARE Activity Details Follow Up 4 Weeks Reason:anxiety VITAL SIGNS Height 57 in 2018-02-10 Weight 192 lbs 2018-02-10 Temperature 97.7 degrees Fahrenheit 2018-02-10 Heart Rate 76 bpm 2018-02-10 Respiratory Rate 20 2018-02-10 BMI 41.54 kg/m2 2018-02-10 Blood pressure systolic 124 mmHg 2018-02-10 Blood pressure diastolic 82 mmHg 2018-02-10 MEDICATIONS Medication Instructions Dosage Frequency Start Date End Date Duration Status Amitriptyline HCl 25 MG Orally Once a day 1 tablet 24h Jul, 30 days Active Vitamin D 2000 UNIT Orally Once a day 1 tablet 24h Active Iron 325 (65 Fe) MG Orally Once a day 1 tablet 24h Active HydrOXYzine HCl 25 MG Orally every 8 hrs 1 tablet as needed 8h Jan, 30 day(s) Active Paxil 20 MG TAKE ONE TABLET BY MOUTH ONCE DAILY IN THE MORNING 30 Active Stool Softener 100 MG Orally Once a day 1 capsule as needed 24h Active Premarin 0.625 MG/GM Vaginal 2-3 times a week administer 1 gram to vaginal mucosa Active Meloxicam 10 MG Orally Once a day 1 capsule 24h Active Celebrex 100 mg Orally twice a day 1 capsule with food 12h Jan, Active RESULTS No Results PROCEDURES No Known [...]
--- OUTSIDE RECORDS SUMMARY | 2019-01-30 21:08 | XMS REPORT | Continuity of Care Document ---
Author Author [facility] Address Unknown Phone Unavailable Allergies Active Description [...] W 296.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 08/23/2009 [facility], SOMMER W 300.02 GENERALIZED ANXIETY DISORDER 08/23/2009 JACQU[facility]INE [facility], SOMMER W 783.1 recent weight gain of lbs 09/10/2009 JACQUELINE [facility], SOMMER W 786.50 CHEST PAIN 09/10/2009 JACQUELINE [facility], SOMMER W 786.50 CHEST PAIN 09/19/2009 [facility], SOMMER W 300.00 ANXIETY UNSPEC 09/19/2009 J[facility]QU[facility]INE [facility], SOMMER W 300.00 ANXIETY UNSPEC 12/26/2010 Ot [...] TREJO Ot R10.31 RIGHT LOWER QUADRANT PAIN 04/10/2018 MADL, TRAVIS L [facility] [employer] REGISTERED NURSE Ot Z12.31 ENCNTR SCREEN MAMMOGRAM FOR MALIGNANT NE 04/11/2018 SEBASTIAN ROSALES MD Ot F17.290 NICOTINE DEPENDENCE, OTHER TOBACCO PRODU 04/11/2018 SEBASTIAN ROSALES MD Ot K85.90 ACUTE PANCREATITIS WITHOUT NECROSIS OR I 04/11/2018 SEBASTIAN ROSALES MD Ot R07.9 CHEST PAIN, UNSPECIFIED 04/11/2018 SEBASTIAN ROSALES MD Ot F17.290 NICOTINE DEPENDENCE, OTHER TOBACCO PRODU 04/11/2018 SEBASTIAN ROSALES MD Ot K85.90 ACUTE PANCREATITIS WITHOUT NECROSIS OR I 04/11/2018 SEBASTIAN ROSALES MD Ot R07.9 CHEST PAIN, UNSPECIFIED 04/24/2018 MADL, TRAVIS L [facility] [employer] REGISTERED NURSE Ot Z12.31 ENCNTR SCREEN MAMMOGRAM FOR MALIGNANT NE 04/24/2018 BHUMIKA TREJO Ot F31.9 BIPOLAR DISORDER, UNSPECIFIED 04/24/2018 BHUMIKA TREJO Ot F41.9 ANXIETY DISORDER, UNSPECIFIED 04/24/2018 BHUMIKA TREJO Ot R10.11 RIGHT UPPER QUADRANT PAIN 04/24/2018 BHUMIKA TREJO Ot R10.13 EPIGASTRIC PAIN 04/24/2018 BHUMIKA TREJO Ot R11.0 NAUSEA 04/24/2018 BHUMIKA TREJO Ot Z87.19 PERSONAL HISTORY OF OTHER DISEASES OF TH 04/24/2018 BHUMIKA TREJO Ot Z90.710 ACQUIRED ABSENCE OF BOTH CERVIX AND UTER 04/24/2018 BHUMIKA TREJO Ot Z90.89 ACQUIRED ABSENCE OF OTHER ORGANS 04/24/2018 TRAVIS HUIZAR Ot Z12.31 ENCNTR SCREEN MAMMOGRAM FOR MALIGNANT NE 04/27/2018 BHUMIKA TREJO Ot F31.9 BIPOLAR DISORDER, UNSPECIFIED 04/27/2018 BHUMIKA TREJO Ot F41.9 ANXIETY DISORDER, UNSPECIFIED 04/27/2018 BHUMIKA TREJO Ot R10.11 RIGHT UPPER QUADRANT PAIN 04/27/2018 BHUMIKA TREJO Ot R10.13 EPIGASTRIC PAIN 04/27/2018 BHUMIKA TREJO Ot R11.0 NAUSEA 04/27/2018 BHUMIKA TREJO Ot Z87.19 PERSONAL HISTORY OF OTHER DISEASES OF 04/27/2018 BHUMIKA TREJO Ot Z90.710 ACQUIRED ABSENCE OF BOTH CERVIX AND UTER 04/27/2018 BHUMIKA TREJO Ot Z90.89 ACQUIRED ABSENCE OF OTHER ORGANS 04/27/2018 JARETT DAMON APRN Ot V76.12 OTH SCREEN MAMMO-MALIGN NEOPLASM OF FABRIZIO 04/27/2018 SHEA CORDERO DO Ot Z01.818 ENCOUNTER FOR OTHER PREPROCEDURAL EXAMIN 04/28/2018 SHEA CORDERO DO Ot Z01.818 ENCOUNTER FOR OTHER PREPROCEDURAL EXAMIN 04/28/2018 SHEA CORDERO DO Ot K82.8 OTHER SPECIFIED DISEASES OF GALLBLADDER 04/28/2018 SHEA CORDERO DO Ot R10.11 RIGHT UPPER QUADRANT PAIN 04/29/2018 SHEA CORDERO DO Ot F17.290 NICOTINE DEPENDENCE, OTHER TOBACCO PRODU 04/29/2018 SHEA CORDERO DO Ot K81.1 CHRONIC CHOLECYSTITIS 04/29/2018 SHEA CORDERO DO Ot K82.8 OTHER SPECIFIED DISEASES OF GALLBLADDER 05/03/2018 SHEA CORDERO DO Ot Z01.818 ENCOUNTER FOR OTHER PREPROCEDURAL EXAMIN 05/03/2018 SHEA CORDERO DO Ot F17.290 NICOTINE DEPENDENCE, OTHER TOBACCO PRODU 05/03/2018 SHEA CORDERO DO Ot K81.1 CHRONIC CHOLECYSTITIS 05/17/2018 SHEA CORDERO DO Ot K82.8 OTHER SPECIFIED DISEASES OF GALLBLADDER 05/17/2018 SHEA CORDERO DO Ot R10.11 RIGHT UPPER QUADRANT PAIN Procedures Code [place] [address] PSYTX PT&/FAMILY 45 MINUTES 01/23/2015 25436 PSYTX PT&/FAMILY 30 MINUTES 01/31/2015 Results Test [...] 17:40 Lyme IgG/IgM Ab <0.91 ISR 0.00-0.90 CMP - 04/07/18 13:08 GLUCOSE 91 mg/dL 65-99 UREA NITROGEN (BUN) 19 mg/dL 7-25 CREATININE 0.86 mg/dL 0.50-1.10 eGFR NON-AFR. EMIRATI 83 mL/min/1.73m2 > OR=60 eGFR 96 mL/min/1.73m2 > OR=60 BUN/CREATININE RATIO NOT APPLICABLE (calc) 6-22 SODIUM 140 mmol/L 135-146 POTASSIUM 4.0 mmol/L 3.5-5.3 CHLORIDE 103 mmol/L 98-110 CARBON DIOXIDE 28 mmol/L 20-31 CALCIUM 10.2 mg/dL 8.6-10.2 PROTEIN, TOTAL 6.6 g/dL 6.1-8.1 ALBUMIN 4.4 g/dL 3.6-5.1 GLOBULIN 2.2 g/dL (calc) 1.9-3.7 ALBUMIN/GLOBULIN RATIO 2.0 (calc) 1.0-2.5 BILIRUBIN, TOTAL 0.3 mg/dL 0.2-1.2 ALKALINE PHOSPHATASE 75 U/L 33-115 AST 18 U/L 10-30 ALT 14 U/L 6-29 Complete blood count (CBC) with automated white blood cell (WBC) differential - 04/09/18 20:02 Blood leukocytes automated count (number/volume) 5.8 10*3/uL 4.3-11.0 Blood erythrocytes automated count (number/volume) 4.40 10*6/uL 4.35-5.85 Venous blood hemoglobin measurement (mass/volume) 14.7 g/dL 11.5-16.0 Blood hematocrit (volume fraction) 40 % 35-52 Automated erythrocyte mean corpuscular volume 91 [foz_us] 80-99 Automated erythrocyte mean corpuscular hemoglobin (mass per erythrocyte) 33 pg 25-34 Automated erythrocyte mean corpuscular hemoglobin concentration measurement ( mass/volume) 37 g/dL 32-36 Automated erythrocyte distribution width ratio 12.2 % 10.0-14.5 Automated blood platelet count (count/volume) 244 10*3/uL 130-400 Automated blood platelet mean volume measurement 9.7 [foz_us] 7.4-10.4 Automated blood neutrophils/100 leukocytes 42 % 42-75 Automated blood lymphocytes/100 leukocytes 48 % 12-44 Blood monocytes/100 leukocytes 7 % 0-12 Automated blood eosinophils/100 leukocytes 3 % 0-10 Automated blood basophils/100 leukocytes 1 % 0-10 Blood neutrophils automated count (number/volume) 2.4 10*3 1.8-7.8 Blood lymphocytes automated count (number/volume) 2.8 10*3 1.0-4.0 Blood monocytes automated count (number/volume) 0.4 10*3 0.0-1.0 Automated eosinophil count 0.2 10*3/uL 0.0-0.3 Automated blood basophil count (count/volume) 0.0 10*3/uL 0.0-0.1 PT panel in platelet poor plasma by coagulation assay - 04/09/18 20:02 Prothrombin time (PT) in platelet poor plasma by coagulation assay 12.9 s 12.2-14.7 INR in platelet poor plasma or blood by coagulation assay 1.0 0.8-1.4 Activated partial thromboplastin time (aPTT) in platelet poor plasma bycoagulation assay - 04/09/18 20:02 Activated partial thromboplastin time (aPTT) in platelet poor plasma bycoagulation assay 29 s 24-35 Serum or plasma choriogonadotropin ( test) detection - 04/09/18 20:02 Serum or plasma choriogonadotropin ( test) detection NEGATIVE NEGATIVE Comprehensive metabolic panel - 04/09/18 20:02 Serum or plasma sodium measurement (moles/volume) 139 mmol/L 135-145 Serum or plasma potassium measurement (moles/volume) 3.8 mmol/L 3.6-5.0 Serum or plasma chloride measurement (moles/volume) 104 mmol/L 98-107 Carbon dioxide 24 mmol/L 21-32 Serum or plasma anion gap determination (moles/volume) 11 mmol/L 5-14 Serum or plasma urea nitrogen measurement (mass/volume) 19 mg/dL 7-18 Serum or plasma creatinine measurement (mass/volume) 0.92 mg/dL 0.60-1.30 Serum or plasma urea nitrogen/creatinine mass ratio 21 NRG Serum or plasma creatinine measurement with calculation of estimated glomerular filtration rate > NRG Serum or plasma glucose measurement (mass/volume) 82 mg/dL 70-105 Serum or plasma calcium measurement (mass/volume) 10.0 mg/dL 8.5-10.1 Serum or plasma total bilirubin measurement (mass/volume) 0.3 mg/dL 0.1-1.0 Serum or plasma alkaline phosphatase measurement (enzymatic activity/volume) 75 U/L 40-136 Serum or plasma aspartate aminotransferase measurement (enzymatic activity/ volume) 21 U/L 5-34 Serum or plasma alanine aminotransferase measurement (enzymatic activity/volume ) 20 U/L 0-55 Serum or plasma protein measurement (mass/volume) 7.2 g/dL 6.4-8.2 Serum or plasma albumin measurement (mass/volume) 4.5 g/dL 3.2-4.5 Magnesium - 04/09/18 20:02 Magnesium 2.3 mg/dL 1.8-2.4 Serum or plasma creatine kinase measurement (enzymatic activity/volume) - 04/09 20:02 Serum or plasma creatine kinase measurement (enzymatic activity/volume) 86 U/L 29-168 Serum or plasma creatine kinase MB measurement (enzymatic activity/volume) - 20:02 Serum or plasma creatine kinase MB measurement (enzymatic activity/volume) 0.9 ng/mL <6.6 Serum or plasma troponin i.cardiac measurement (mass/volume) - 04/09/18 20:02 Serum or plasma troponin i.cardiac measurement (mass/volume) < ng/ mL <0.30 Serum or plasma lithium measurement (moles/volume) - 04/09/18 20:02 BNP level 14.1 pg/mL <100.0 Serum or plasma amylase measurement (enzymatic activity/volume) - 04/09/18 20: 02 Serum or plasma amylase measurement (enzymatic activity/volume) 131 U/L 25-125 Lipase - 04/09/18 20:02 Lipase 341 U/L 8-78 Serum or plasma thyrotropin measurement by detection limit <=0.05 miu/l (units/ volume) - 04/09/18 20:02 Serum or plasma thyrotropin measurement by detection limit <=0.05 miu/l (units/ volume) 1.76 u[iU]/mL 0.35-4.94 Complete blood count (CBC) with automated white blood cell (WBC) differential - 04/10/18 02:40 Blood leukocytes automated count (number/volume) 5.3 10*3/uL 4.3-11.0 Blood erythrocytes automated count (number/volume) 4.21 10*6/uL 4.35-5.85 Venous blood hemoglobin measurement (mass/volume) 13.5 g/dL 11.5-16.0 Blood hematocrit (volume fraction) 39 % 35-52 Automated erythrocyte mean corpuscular volume 92 [foz_us] 80-99 Automated erythrocyte mean corpuscular hemoglobin (mass per erythrocyte) 32 pg 25-34 Automated erythrocyte mean corpuscular hemoglobin concentration measurement ( mass/volume) 35 g/dL 32-36 Automated erythrocyte distribution width ratio 12.3 % 10.0-14.5 Automated blood platelet count (count/volume) 234 10*3/uL 130-400 Automated blood platelet mean volume measurement 9.9 [foz_us] 7.4-10.4 Automated blood neutrophils/100 leukocytes 44 % 42-75 Automated blood lymphocytes/100 leukocytes 42 % 12-44 Blood monocytes/100 leukocytes 12 % 0-12 Automated blood eosinophils/100 leukocytes 2 % 0-10 Automated blood basophils/100 leukocytes 0 % 0-10 Blood neutrophils automated count (number/volume) 2.4 10*3 1.8-7.8 Blood lymphocytes automated count (number/volume) 2.2 10*3 1.0-4.0 Blood monocytes automated count (number/volume) 0.6 10*3 0.0-1.0 Automated eosinophil count 0.1 10*3/uL 0.0-0.3 Automated blood basophil count (count/volume) 0.0 10*3/uL 0.0-0.1 Comprehensive metabolic panel - 04/10/18 02:40 Serum or plasma sodium measurement (moles/volume) 139 mmol/L 135-145 Serum or plasma potassium measurement (moles/volume) 3.9 mmol/L 3.6-5.0 Serum or plasma chloride measurement (moles/volume) 105 mmol/L 98-107 Carbon dioxide 23 mmol/L 21-32 Serum or plasma anion gap determination (moles/volume) 11 mmol/L 5-14 Serum or plasma urea nitrogen measurement (mass/volume) 16 mg/dL 7-18 Serum or plasma creatinine measurement (mass/volume) 0.80 mg/dL 0.60-1.30 Serum or plasma urea nitrogen/creatinine mass ratio 20 NRG Serum or plasma creatinine measurement with calculation of estimated glomerular filtration rate > NRG Serum or plasma glucose measurement (mass/volume) 116 mg/dL 70-105 Serum or plasma calcium measurement (mass/volume) 9.2 mg/dL 8.5-10.1 Serum or plasma total bilirubin measurement (mass/volume) 0.4 mg/dL 0.1-1.0 Serum or plasma alkaline phosphatase measurement (enzymatic activity/volume) 70 U/L 40-136 Serum or plasma aspartate aminotransferase measurement (enzymatic activity/ volume) 18 U/L 5-34 Serum or plasma alanine aminotransferase measurement (enzymatic activity/volume ) 17 U/L 0-55 Serum or plasma protein measurement (mass/volume) 6.3 g/dL 6.4-8.2 Serum or plasma albumin measurement (mass/volume) 4.0 g/dL 3.2-4.5 Lipid 1996 panel - 04/10/18 02:40 Serum or plasma triglyceride measurement (mass/volume) 50 mg/dL <150 Serum or plasma cholesterol measurement (mass/volume) 187 mg/dL < 200 Serum or plasma cholesterol in HDL measurement (mass/volume) 68 mg/ dL 40-60 Cholesterol in LDL [mass/volume] in serum or plasma by direct assay 108 mg/dL 1-129 Serum or plasma cholesterol in VLDL measurement (mass/volume) 10 mg/ dL 5-40 Serum or plasma amylase measurement (enzymatic activity/volume) - 04/10/18 02: 40 Serum or plasma amylase measurement (enzymatic activity/volume) 530 U/L 25-125 Serum or plasma troponin i.cardiac measurement (mass/volume) - 04/10/18 02:40 Serum or plasma troponin i.cardiac measurement (mass/volume) < ng/ mL <0.30 Lipase - 04/10/18 02:40 Lipase 2702 U/L 8-78 Complete blood count (CBC) with automated white blood cell (WBC) differential - 04/11/18 05:50 Blood leukocytes automated count (number/volume) 3.7 10*3/uL 4.3-11.0 Blood erythrocytes automated count (number/volume) 4.18 10*6/uL 4.35-5.85 Venous blood hemoglobin measurement (mass/volume) 13.8 g/dL 11.5-16.0 Blood hematocrit (volume fraction) 39 % 35-52 Automated erythrocyte mean corpuscular volume 94 [foz_us] 80-99 Automated erythrocyte mean corpuscular hemoglobin (mass per erythrocyte) 33 pg 25-34 Automated erythrocyte mean corpuscular hemoglobin concentration measurement ( mass/volume) 35 g/dL 32-36 Automated erythrocyte distribution width ratio 12.4 % 10.0-14.5 Automated blood platelet count (count/volume) 208 10*3/uL 130-400 Automated blood platelet mean volume measurement 9.7 [foz_us] 7.4-10.4 Automated blood neutrophils/100 leukocytes 47 % 42-75 Automated blood lymphocytes/100 leukocytes 41 % 12-44 Blood monocytes/100 leukocytes 9 % 0-12 Automated blood eosinophils/100 leukocytes 3 % 0-10 Automated blood basophils/100 leukocytes 1 % 0-10 Blood neutrophils automated count (number/volume) 1.7 10*3 1.8-7.8 Blood lymphocytes automated count (number/volume) 1.5 10*3 1.0-4.0 Blood monocytes automated count (number/volume) 0.3 10*3 0.0-1.0 Automated eosinophil count 0.1 10*3/uL 0.0-0.3 Automated blood basophil count (count/volume) 0.0 10*3/uL 0.0-0.1 Comprehensive metabolic panel - 04/11/18 05:50 Serum or plasma sodium measurement (moles/volume) 143 mmol/L 135-145 Serum or plasma potassium measurement (moles/volume) 4.2 mmol/L 3.6-5.0 Serum or plasma chloride measurement (moles/volume) 113 mmol/L 98-107 Carbon dioxide 22 mmol/L 21-32 Serum or plasma anion gap determination (moles/volume) 8 mmol/L 5-14 Serum or plasma urea nitrogen measurement (mass/volume) 6 mg/dL 7-18 Serum or plasma creatinine measurement (mass/volume) 0.72 mg/dL 0.60-1.30 Serum or plasma urea nitrogen/creatinine mass ratio 8 NRG Serum or plasma creatinine measurement with calculation of estimated glomerular filtration rate > NRG Serum or plasma glucose measurement (mass/volume) 111 mg/dL 70-105 Serum or plasma calcium measurement (mass/volume) 9.5 mg/dL 8.5-10.1 Serum or plasma total bilirubin measurement (mass/volume) 0.4 mg/dL 0.1-1.0 Serum or plasma alkaline phosphatase measurement (enzymatic activity/volume) 64 U/L 40-136 Serum or plasma aspartate aminotransferase measurement (enzymatic activity/ volume) 15 U/L 5-34 Serum or plasma alanine aminotransferase measurement (enzymatic activity/volume ) 17 U/L 0-55 Serum or plasma protein measurement (mass/volume) 6.1 g/dL 6.4-8.2 Serum or plasma albumin measurement (mass/volume) 3.8 g/dL 3.2-4.5 Serum or plasma amylase measurement (enzymatic activity/volume) - 04/11/18 05: 50 Serum or plasma amylase measurement (enzymatic activity/volume) 101 U/L 25-125 Lipase - 04/11/18 05:50 Lipase 45 U/L 8-78 Complete urinalysis with reflex to culture - 04/24/18 10:50 Urine color determination YELLOW NRG Urine clarity determination CLEAR NRG Urine pH measurement by test strip 7 5-9 Specific gravity of urine by test strip 1.005 1.016- 1.022 Urine protein assay by test strip, semi-quantitative NEGATIVE NEGATIVE Urine glucose detection by automated test strip NEGATIVE NEGATIVE Erythrocytes detection in urine sediment by light microscopy NEGATIVE NEGATIVE Urine ketones detection by automated test strip NEGATIVE NEGATIVE Urine nitrite detection by test strip NEGATIVE NEGATIVE Urine total bilirubin detection by test strip NEGATIVE NEGATIVE Urine urobilinogen measurement by automated test strip (mass/volume) NORMAL NORMAL Urine leukocyte esterase detection by dipstick NEGATIVE NEGATIVE Automated urine sediment erythrocyte count by microscopy (number/high power field) NONE NRG Automated urine sediment leukocyte count by microscopy (number/high power field ) NONE NRG Bacteria detection in urine sediment by light microscopy NEGATIVE NRG Squamous epithelial cells detection in urine sediment by light microscopy 2-5 NRG Crystals detection in urine sediment by light microscopy NONE NRG Casts detection in urine sediment by light microscopy NONE NRG Mucus detection in urine sediment by light microscopy NEGATIVE NRG Complete urinalysis with reflex to culture NO NRG Complete blood count (CBC) with automated white blood cell (WBC) differential - 04/24/18 11:00 Blood leukocytes automated count (number/volume) 4.0 10*3/uL 4.3-11.0 Blood erythrocytes automated count (number/volume) 4.15 10*6/uL 4.35-5.85 Venous blood hemoglobin measurement (mass/volume) 13.3 g/dL 11.5-16.0 Blood hematocrit (volume fraction) 38 % 35-52 Automated erythrocyte mean corpuscular volume 93 [foz_us] 80-99 Automated erythrocyte mean corpuscular hemoglobin (mass per erythrocyte) 32 pg 25-34 Automated erythrocyte mean corpuscular hemoglobin concentration measurement ( mass/volume) 35 g/dL 32-36 Automated erythrocyte distribution width ratio 12.3 % 10.0-14.5 Automated blood platelet count (count/volume) 214 10*3/uL 130-400 Automated blood platelet mean volume measurement 10.1 [foz_us] 7.4-10.4 Automated blood neutrophils/100 leukocytes 51 % 42-75 Automated blood lymphocytes/100 leukocytes 40 % 12-44 Blood monocytes/100 leukocytes 7 % 0-12 Automated blood eosinophils/100 leukocytes 2 % 0-10 Automated blood basophils/100 leukocytes 1 % 0-10 Blood neutrophils automated count (number/volume) 2.0 10*3 1.8-7.8 Blood lymphocytes automated count (number/volume) 1.6 10*3 1.0-4.0 Blood monocytes automated count (number/volume) 0.3 10*3 0.0-1.0 Automated eosinophil count 0.1 10*3/uL 0.0-0.3 Automated blood basophil count (count/volume) 0.0 10*3/uL 0.0-0.1 Comprehensive metabolic panel - 04/24/18 11:00 Serum or plasma sodium measurement (moles/volume) 140 mmol/L 135-145 Serum or plasma potassium measurement (moles/volume) 4.1 mmol/L 3.6-5.0 Serum or plasma chloride measurement (moles/volume) 106 mmol/L 98-107 Carbon dioxide 23 mmol/L 21-32 Serum or plasma anion gap determination (moles/volume) 11 mmol/L 5-14 Serum or plasma urea nitrogen measurement (mass/volume) 13 mg/dL 7-18 Serum or plasma creatinine measurement (mass/volume) 0.71 mg/dL 0.60-1.30 Serum or plasma urea nitrogen/creatinine mass ratio 18 NRG Serum or plasma creatinine measurement with calculation of estimated glomerular filtration rate > NRG Serum or plasma glucose measurement (mass/volume) 98 mg/dL 70-105 Serum or plasma calcium measurement (mass/volume) 9.7 mg/dL 8.5-10.1 Serum or plasma total bilirubin measurement (mass/volume) 0.4 mg/dL 0.1-1.0 Serum or plasma alkaline phosphatase measurement (enzymatic activity/volume) 63 U/L 40-136 Serum or plasma aspartate aminotransferase measurement (enzymatic activity/ volume) 20 U/L 5-34 Serum or plasma alanine aminotransferase measurement (enzymatic activity/volume ) 17 U/L 0-55 Serum or plasma protein measurement (mass/volume) 6.0 g/dL 6.4-8.2 Serum or plasma albumin measurement (mass/volume) 4.3 g/dL 3.2-4.5 Lipase - 04/24/18 11:00 Lipase 53 U/L 8-78 Serum or plasma C reactive protein measurement (mass/volume) - 04/24/18 11:00 Serum or plasma C reactive protein measurement (mass/volume) 0.02 mg /dL 0.00-0.50 Methicillin resistant Staphylococcus aureus (MRSA) screening culture - 12:12 Methicillin resistant Staphylococcus aureus (MRSA) screening culture NEG NRG Encounters ACCT No. Visit Date/Time Discharge Status Pt. Type Provider Facility Loc./Unit Complaint [id number] 01/31/2015 13:54:00 01/31/2015 23:59:59 CLS Outpatient SOMMER BUCKNER [id number] 01/23/2015 08:21:00 01/23/2015 23:59:59 CLS Outpatient SOMMER BUCKNER [id number] 04/29/2018 12:02:00 04/29/2018 18:50:00 DIS Outpatient SHEA CORDERO DO [facility] SDC BILIARY DYSKENSIA [id number] 04/27/2018 09:44:00 04/27/2018 15:39:00 DIS Outpatient CORDERO SHEA YEUNG [facility] PREOP LAP ROSETTA [id number] 04/26/2018 09:30:00 04/26/2018 23:59:59 CLS Outpatient CORDERO SHEA YEUNG [facility] CARD RUQ ABD PAIN [id number] 04/24/2018 10:18:00 04/24/2018 13:33:00 DIS Emergency BHUMIKA TREJO [facility] ER ABD PAIN [id number] 04/09/2018 18:43:00 04/11/2018 14:14:00 DIS Inpatient SEBASTIAN ROSALES MD [facility] 4TH CHEST PAIN;PANCREATITIS [id number] 04/03/2017 11:22:00 04/03/2017 23:59:59 CLS Outpatient TRAVIS HUIZAR [employer] REGISTERED NURSE [facility] RAD SCREENING Z12.39 [id number] 03/20/2016 18:26:00 03/20/2016 20:48:00 DIS Emergency BHUMIKA TREJO [facility] ER ABDOMINAL PAIN [id number] 04/16/2015 11:30:00 04/16/2015 23:59:59 CLS Outpatient JARETT DAMON APRN [facility] RAD SCREENING [id number] 12/06/2015 15:50:00 Document Registration [id number] 12/26/2010 18:12:00 Document Registration [id number] 10/30/2016 07:06:00 Document Registration [id number] 04/17/2017 08:42:00 Document Registration [id number] 12/16/2018 13:20:00 12/16/2018 23:59:59 [facility] Outpatient ELLEN HURTADO [facility] [id number] 04/07/2018 12:40:00 Document Registration [id number] 04/21/2017 04:06:00 Document Registration
[2019-01-30 21:17] LABS: PROTHROMBIN TIME PATIENT 13.1 SEC (12.2-14.7)
[2019-01-30 21:27] LABS: ALANINE AMINOTRANSFERASE 34 U/L (0-55); ALBUMIN 4.6 GM/DL (3.2-4.5); ALKALINE PHOSPHATASE 101 U/L (40-136); AMYLASE 194 U/L (25-125); BILIRUBIN,TOTAL 0.3 MG/DL (0.1-1.0); BUN/CREATININE RATIO 18; CARBON DIOXIDE 24 MMOL/L (21-32); CHLORIDE 102 MMOL/L (98-107); CREATINE KINASE 144 U/L (29-168); CREATININE SERUM 0.87 MG/DL (0.60-1.30); GFR ESTIMATED > 60; GLUCOSE 118 MG/DL (70-105); LIPASE 536 U/L (8-78); MAGNESIUM 2.6 MG/DL (1.8-2.4); POTASSIUM 3.5 MMOL/L (3.6-5.0); SODIUM 139 MMOL/L (135-145); TOTAL PROTEIN 7.3 GM/DL (6.4-8.2)
[2019-01-30] MEDS ORDERED: LORazepam 0.5 MG (ATIVAN) TABLET PO ONE (21:30)
[2019-01-30 21:35] LABS: CREATINE KINASE MB 1.4 NG/ML (<6.6); MYOGLOBIN SERUM 40.7 NG/ML (10.0-92.0)
[2019-01-30 21:43] LABS: BILIRUBIN,URINE NEGATIVE (NEGATIVE); CLARITY,URINE CLEAR; COLOR,URINE YELLOW; GLUCOSE, URINE (UA) NEGATIVE (NEGATIVE); KETONES,URINE NEGATIVE (NEGATIVE); LEUKOCYTE ESTERASE ,URINE NEGATIVE (NEGATIVE); NITRITE,URINE NEGATIVE (NEGATIVE); PH,URINE 7 (5-9); PROTEIN,URINE NEGATIVE (NEGATIVE); UROBILINOGEN,URINE NORMAL (NORMAL)
[2019-01-30 21:49] LABS: BACTERIA,URINE TRACE /HPF
[2019-01-30 21:55] LABS: AMPHETAMINE SCREEN, URINE NEGATIVE (NEGATIVE); BARBITURATE SCREEN URINE NEGATIVE (NEGATIVE); BENZODIAZEPINES SCREEN URINE NEGATIVE (NEGATIVE); CANNABINOID SCREEN, URINE POSITIVE (NEGATIVE); COCAINE SCREEN URINE NEGATIVE (NEGATIVE); METHADONE STAT NEGATIVE (NEGATIVE); METHAMPHETAMINE SCREEN URINE S NEGATIVE (NEGATIVE); OPIATE SCREEN URINE POSITIVE (NEGATIVE); OXYCODONE STAT NEGATIVE (NEGATIVE); PROPOXYPHENE STAT NEGATIVE (NEGATIVE); TRICYCLIC ANTIDEPRESSANTS SCRE POSITIVE (NEGATIVE)
[2019-01-30 23:20] VITALS: BP 153/107
--- NOTE | 2019-01-31 07:15 | Diagnostic Imaging Report ---
INDICATION: Anxiety, chest pressure.. TECHNIQUE: Single view chest 9:52 PM. CORRELATION STUDY: 04/09/2018 FINDINGS: The heart size, mediastinal configuration and pulmonary vascularity are within normal limits. The lungs are clear with no consolidating infiltrate. There is no significant effusion or pneumothorax. IMPRESSION: 1. Negative portable chest. Dictated by: Dictated on workstation # [id number]
== END 2019-01-30 23:20 | disposition home or self-care (01) ==
LOC: EDUNIT# 20:42 → ER 20:43
DX: F41.0 Panic disorder [episodic paroxysmal anxiety] (principal); R00.2 Palpitations; F31.9 Bipolar disorder, unspecified; F12.10 Cannabis abuse, uncomplicated; Z90.49 Acquired absence of other specified parts of digestive tract; Z90.710 Acquired absence of both cervix and uterus; Z87.19 Personal history of other diseases of the digestive system
CPT/HCPCS: 36415; 71045; 80053; 80306; 81000; 82150; 82550; 82553; 83690; 83735; 83874; 83880; 84443; 84484; 84703; 85025; 85610; 85730; 93041

== ENCOUNTER 2021-02-09 18:40 | Day surgery (SDC) | payer SELFPAY ==
[~2021-02-09] VITALS: Ht 170 cm; Wt 98.0 kg
[~2021-02-09 18:40] MED LIST changes: -CIPR500T4 PO; +CIPR500T5 PO; -DOCU-238 PO; +DOCU-241 PO; -OMEP20CA12 PO; +OMEP20CA18 PO
--- NOTE | 2021-02-09 19:09 | ED Integumentary General ---
General Stated Complaint: DOG BITE, LOWER CHIN Source: patient Exam Limitations: no limitations History of Present Illness Date Seen by Provider: Feb 09, 2021 Time Seen by Provider: 19:06 Initial Comments Dog bite to the left side of her chin/jaw from a dog that she is rehabbing. Her tetanus was updated within the past 10 years. The dog is not up-to-date on rabies. Timing/Duration: constant Severity: moderate Location: face Associated Symptoms: denies symptoms Allergies and Home Medications Allergies Coded Allergies: NKANo Known Allergies (Verified Allergy, Unknown, 07/22/06) Home Medications Cholecalciferol (Vitamin D3) 2,000 Unit Capsule, 2,000 UNIT PO DAILY, (Reported) Docusate Sodium 100 Mg Capsule, 100 MG PO DAILY PRN for CONSTIPATION, (Reported) Estrogens, Conjugated 0.625 Mg Tablet, 0.625 MG PO NEEDED, (Reported) Hydrocodone Bit/Acetaminophen 1 Tab Tab, 1 TAB PO Q4H PRN for pain Prescribed by: SHEA CORDERO on 04/29/18 3283 Paroxetine HCl 20 Mg Tablet, 20 MG PO DAILY, (Reported) Patient Home Medication List Home Medication List Reviewed: Yes Review of Systems Review of Systems Constitutional: see HPI EENTM: see HPI Respiratory: no symptoms reported Cardiovascular: no symptoms reported Genitourinary: no symptoms reported Musculoskeletal: see HPI Skin: see HPI Psychiatric/Neurological: No Symptoms Reported Past Fcfooxk-Pjzyjz-Ofgsso Hx Patient Social History Alcohol Beverage of Choice: Wine Drug of Choice: marijuana Type Used: Cigarettes, Electronic/Vapor Recent Hopitalizations: No Seasonal Allergies Seasonal Allergies: No Past Medical History Surgeries: Yes (HYST/BSO) Appendectomy, Hysterectomy, Oophorectomy Respiratory: No Currently Using CPAP: No Currently Using BIPAP: No Cardiac: Yes (hx PVC's) Neurological: No Reproductive Disorders: No 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 Sexually Transmitted Disease: No HIV/AIDS: No Genitourinary: No Gastrointestinal: Yes Gall Bladder Disease Musculoskeletal: No Endocrine: No HEENT: No Cancer: No Psychosocial: Yes Anxiety, Bipolar, Depression Integumentary: No Blood Disorders: No Adverse Reaction/Blood Tranf: No Family Medical History Anxiety disorder 19 MOTHER, Onset:Unknown FH: bipolar disorder 19 MOTHER, Onset:Unknown No Pertinent Family Hx Physical Exam Vital Signs Vital Signs - First Documented 02/09/21 18:53 Temp 36.5 Pulse 82 Resp 16 B/P (MAP) 153/94 (113) Pulse Ox 95 O2 Delivery Room Air Capillary Refill : General Appearance: WD/WN, no apparent distress Neck: other (There is an 8 cm laceration gaping by about 2 to 3 cm to the inferior surface of the chin/anterior surface of the neck. No active bleeding. This is down through the subcutaneous tissues and through the left side of the platysma muscle as well as through the left side of the platysma tendon at its attachment site to the anterior mandible.) Respiratory: no respiratory distress, no accessory muscle use Gastrointestinal: normal bowel sounds, non tender Neurologic/Psychiatric: alert, normal mood/affect, oriented x 3 Skin: normal color, warm/dry Skin Problem Character: other Progress/Results/Core Measures Results/Orders Lab Results Laboratory Tests Test 02/09/21 19:05 Range/Units White Blood Count 9.0 4.3-11.0 10^3/uL Red Blood Count 4.37 3.80-5.11 10^6/uL Hemoglobin 13.8 11.5-16.0 g/dL Hematocrit 41 35-52 % Mean Corpuscular Volume 94 80-99 fL Mean Corpuscular Hemoglobin 32 25-34 pg Mean Corpuscular Hemoglobin Concent 34 32-36 g/dL Red Cell Distribution Width 12.6 10.0-14.5 % Platelet Count 267 130-400 10^3/uL Mean Platelet Volume 9.0 9.0-12.2 fL Immature Granulocyte % (Auto) 1 % Neutrophils (%) (Auto) 71 42-75 % Lymphocytes (%) (Auto) 23 12-44 % Monocytes (%) (Auto) 5 0-12 % Eosinophils (%) (Auto) 0 0-10 % Basophils (%) (Auto) 0 0-10 % Neutrophils # (Auto) 6.4 1.8-7.8 10^3/uL Lymphocytes # (Auto) 2.1 1.0-4.0 10^3/uL Monocytes # (Auto) 0.5 0.0-1.0 10^3/uL Eosinophils # (Auto) 0.0 0.0-0.3 10^3/uL Basophils # (Auto) 0.0 0.0-0.1 10^3/uL Immature Granulocyte # (Auto) 0.1 0.0-0.1 10^3/uL Sodium Level 139 135-145 MMOL/L Potassium Level 4.6 3.6-5.0 MMOL/L Chloride Level 103 98-107 MMOL/L Carbon Dioxide Level 24 21-32 MMOL/L Anion Gap 12 5-14 MMOL/L Blood Urea Nitrogen 12 7-18 MG/DL Creatinine 0.84 0.60-1.30 MG/DL Estimat Glomerular Filtration Rate > 60 BUN/Creatinine Ratio 14 Glucose Level 133 H 70-105 MG/DL Calcium Level 9.4 8.5-10.1 MG/DL Corrected Calcium 9.2 8.5-10.1 MG/DL Total Bilirubin 0.2 0.1-1.0 MG/DL Aspartate Amino Transf (AST/SGOT) 42 H 5-34 U/L Alanine Aminotransferase (ALT/SGPT) 57 H 0-55 U/L Alkaline Phosphatase 106 40-136 U/L Total Protein 6.8 6.4-8.2 GM/DL Albumin 4.2 3.2-4.5 GM/DL Serum Test, Qualitative NEGATIVE NEGATIVE My Orders Orders - KAITLYNN FERRER APRN Ed Iv/Invasive Line Start (02/09/21 19:03) Piperacillin Sodium/Tazobactam (Zosyn Vi (02/09/21 19:15) Rabies Vaccine Human Dipl Cell (Rabavert (02/09/21 19:15) Rabies Immune Globulin/Pf Inj (Hyperrab (02/09/21 19:15) Ed Iv/Invasive Line Start (02/09/21 19:03) Ct Neck (Soft Tissue) W (02/09/21 19:03) Cbc With Automated Diff (02/09/21 19:03) Comprehensive Metabolic Panel (02/09/21 19:03) Hcg,Qualitative Serum (02/09/21 19:03) Fentanyl Inj (Sublimaze Injection) (02/09/21 19:15) Dipht,Pertuss(Acell),Tet Adult (Boostrix (02/09/21 19:15) Iohexol Injection (Omnipaque 350 Mg/Ml 1 (02/09/21 19:30) Received Contrast (Hold Metformin- Contr (02/09/21 19:30) Ns (Ivpb) (Sodium Chloride 0.9% Ivpb Bag (02/09/21 19:30) Medications Given in ED Current Medications Medications Dose Ordered Sig/Kaushal Route Start Time Stop Time Status Last Admin Dose Admin Diphtheria/ Tetanus/Acell Pertussis 0.5 ml ONCE ONCE IM 02/09/21 19:15 02/09/21 19:16 DC 02/09/21 19:28 0.5 ML Fentanyl Citrate 50 mcg ONCE ONCE IVP 02/09/21 19:15 02/09/21 19:16 DC 02/09/21 19:25 50 MCG Iohexol 100 ml ONCE ONCE IV 02/09/21 19:30 02/09/21 19:31 UNV 02/09/21 19:23 75 ML Piperacillin Sod/ Tazobactam Sod 4.5 gm/Sodium Chloride 100 ml @ 200 mls/hr ONCE ONCE IV 02/09/21 19:15 02/09/21 19:44 02/09/21 19:27 200 MLS/HR Rabies Immune Globulin 20 UNITS/KG ONCE ONCE IM 02/09/21 19:15 02/09/21 19:16 DC 02/09/21 19:26 1,960 UNIT Rabies Vaccine Human Diploid Cell 1 ml ONCE ONCE IM 02/09/21 19:15 02/09/21 19:16 DC 02/09/21 19:27 1 ML Sodium Chloride 100 ml ONCE ONCE IV 02/09/21 19:30 02/09/21 19:31 UNV 02/09/21 19:23 80 ML Vital Signs/I&O 02/09/21 02/09/21 18:53 19:25 Temp 36.5 36.5 Pulse 82 Resp 16 B/P (MAP) 153/94 (113) Pulse Ox 95 O2 Delivery Room Air Departure Communication (Admissions) 7-I spoke with Dr. Rowan, this needs washout in the OR and closure in the operating room. Will need rabies vaccine today, then on the 10 18 and . She will need rabies immunoglobulin today as well. This totaled 1980 units which equals just over 6 ml which I infiltrated around the bite site Impression Primary Impression: Laceration of neck Disposition: ADMITTED INPATIENT Condition: Stable Admissions Decision to Admit Reason: Admit from ER (Trauma) Decision to Admit/Date: Feb 09, 2021 Time/Decision to Admit Time: 19:08 Departure-Patient Inst. Referrals: [facility] (PCP/Family) Primary Care Physician Images Head/Face 1 - 2 - KAITLYNN FERRER PUMP SERVICER SUPERVISOR Feb 09, 2021 19:08
[2021-02-09] MEDS ORDERED: TETANUS,DIPTH,PERTUSS P/F (BOOSTRIX) 0.5 ML VIAL IM ONE (19:15)
[2021-02-09] MEDS ORDERED: RABIES VACCINE HUMAN DIPL CELL 1 ML/2.5 UNITS SYR IM ONE (19:15)
[2021-02-09] MEDS ORDERED: fentaNYL INJ 100 MCG/2 ML AMP IVP ONE (19:15)
[2021-02-09] MEDS ORDERED: RABIES IMMUNE GLOBULIN 300 UNIT/ML 5 ML (HyperRAB) IM ONE (19:15)
[2021-02-09] MEDS ORDERED: PIPERACILLIN SODIUM/TAZOBACTAM 4.5 GM in NS (IVPB) 100 ML IV ONE (19:15)
[2021-02-09 19:17] LABS: BASOPHILS % (AUTO) 0 % (0-10); EOSINOPHILS % (AUTO) 0 % (0-10); HEMATOCRIT 41 % (35-52); HEMOGLOBIN 13.8 g/dL (11.5-16.0); LYMPHOCYTES # (AUTO) 2.1 10^3/uL (1.0-4.0); LYMPHOCYTES % (AUTO) 23 % (12-44); MEAN CORPUSCULAR HEMOGLOBIN 32 pg (25-34); MEAN CORPUSCULAR HGB CONC 34 g/dL (32-36); MEAN CORPUSCULAR VOLUME 94 fL (80-99); MONOCYTES # (AUTO) 0.5 10^3/uL (0.0-1.0); MONOCYTES % (AUTO) 5 % (0-12); NEUTROPHILS # (AUTO) 6.4 10^3/uL (1.8-7.8); NEUTROPHILS % (AUTO) 71 % (42-75); PLATELET COUNT 267 10^3/uL (130-400)
[2021-02-09 19:22] LABS: ALBUMIN 4.2 GM/DL (3.2-4.5); CHLORIDE 103 MMOL/L (98-107); POTASSIUM 4.6 MMOL/L (3.6-5.0); SODIUM 139 MMOL/L (135-145)
[2021-02-09 19:23] LABS: CALCIUM 9.4 MG/DL (8.5-10.1)
[2021-02-09 19:24] LABS: GLUCOSE 133 MG/DL (70-105); TOTAL PROTEIN 6.8 GM/DL (6.4-8.2)
[2021-02-09 19:25] LABS: CARBON DIOXIDE 24 MMOL/L (21-32)
[2021-02-09 19:26] LABS: BILIRUBIN,TOTAL 0.2 MG/DL (0.1-1.0)
[2021-02-09 19:28] LABS: ALKALINE PHOSPHATASE 106 U/L (40-136); CREATININE SERUM 0.84 MG/DL (0.60-1.30); GFR ESTIMATED > 60
[2021-02-09 19:29] LABS: BUN/CREATININE RATIO 14
[2021-02-09] MEDS ORDERED: HOLD METFORMIN - RECEIVED CONTRAST 20 ML VIAL IV SCH (19:30)
[2021-02-09] MEDS ORDERED: IOHEXOL 350 MG/ML 100 ML (OMNIPAQUE 350) VIAL IV ONE (19:30)
[2021-02-09] MEDS ORDERED: NS 100 ML (IVPB) BAG IV ONE (19:30)
[2021-02-09 19:31] LABS: ALANINE AMINOTRANSFERASE 57 U/L (0-55)
--- NOTE | 2021-02-09 19:45 | Diagnostic Imaging Report ---
PROCEDURE: CT neck soft tissue with contrast. TECHNIQUE: Multiple contiguous axial images were obtained through the neck after the administration of contrast. Auto Exposure Controls were utilized during the CT exam to meet ALARA standards for radiation dose reduction. INDICATION: Neck injury, dog bite. FINDINGS: There is bovine type aortic arch. Common carotid arteries, as well as internal carotid arteries and the visualized external carotid artery branches, are unremarkable. There is gas present within the subcutaneous tissues and musculature along the left face and within the left parotid gland; however, no contrast extravasation or significant hematoma is identified. Globes are intact, bilaterally. Mastoid air cells and middle ear cavities are unremarkable in appearance. Temporomandibular joints are also unremarkable in appearance. There is no evidence of facial fracture. There is loss of cervical lordosis which may be secondary to muscle spasm. IMPRESSION: 1. Extensive laceration of the left face without significant hemorrhage. No acute osseous abnormality is identified. 2. Incidental note is made of probable bilateral tonsilliths. Dictated by: Dictated on workstation # [id number]
[2021-02-09] MEDS ORDERED: LIDOCAINE/EPI 1%-1:100,000 (XYLOCAINE) 20ML ONE (20:06)
[2021-02-09] MEDS ORDERED: LACTATED RINGERS 1,000 ML IV PRN (20:30)
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
[2021-02-09] MEDS ORDERED: fentaNYL INJ 100 MCG/2 ML AMP ONE (20:31)
[2021-02-09] MEDS ORDERED: MIDAZOLAM 2 MG/2 ML (VERSED) VIAL ONE (20:31)
[2021-02-09] MEDS ORDERED: proPOfol 200 MG/20 ML (DIPRIVAN) VIAL IV ONE (20:39)
[2021-02-09] MEDS ORDERED: ROCURONIUM 10 MG/ML 5 ML SYRINGE IV ONE (20:39)
[2021-02-09] MEDS ORDERED: SUCCINYLCHOLINE INJ 100 MG/5 ML SYR/VIAL ONE (20:39)
[2021-02-09] MEDS ORDERED: LIDOCAINE PF 2% 5 ML (XYLOCAINE) VIAL ONE (20:39)
[2021-02-09] MEDS ORDERED: ONDANSETRON 4 MG/2 ML (SDV) Z0FRAN ONE (20:39)
[2021-02-09] MEDS ORDERED: SEVOFLURANE (ULTANE) 15 ML INHAL SOLN ONE ×2 (20:57→21:19)
--- NOTE | 2021-02-09 21:42 | Progress Note-Post Operative ---
Post-Operative Progess Note Surgeon (s)/Gelatin Dynamite Packing Operator (s) Surgeon JAMIE FRANKS DO Gelatin Dynamite Packing Operator: none Pre-Operative Diagnosis Chin laceration secondary to dog bite Post-Operative Diagnosis same down to mandible Procedure & Operative Findings Date of Procedure 02/09/21 Procedure Performed/Findings Washout and 2 layer closure of laceration Anesthesia Type GET Estimated Blood Loss Estimated blood loss (mL): scant Specimens/Packing Specimens Removed none JAMIE FRANKS DO Feb 09, 2021 21:42
[2021-02-09] MEDS ORDERED: ACHD5005 PO (21:44)
--- NOTE | 2021-02-09 21:44 | Discharge Inst-Surgical ---
Discharge Inst-Surgical Depart Medication/Instructions New, Converted or Re-Newed RX: RX Given to Pt/Family Patient Instructions Follow up Appt: Make appointment for 1 week. [phone] Instructions: No lifting greater than 20 pounds. No strenuous activity. May shower in 24 hours, no tub bath or soaking. Use incentive spirometer at home as directed. No Smoking Skin/Wound Care: May remove bandages in am. You need to leave the Dermabond on incision it will fall off on it's own. Symptoms to Report: Appetite Changes, Extremity Discoloration, Numbness/Tingling, Swelling Increased, Bleeding Excessive, Eyesight Changes, Pain Increased, Urine Color Change, Constipation(Persistent), Fever over 101 degree F, Pain/Pressure in chest, Urinating Difficulty, Cough Up/Vomit Blood, Heart Beat Irreg/Pounding, Pain/Pressure in jaw, Cramps in feet or legs, Lightheadedness, Pain/Pressure in shoulder, Diarrhea(Persistent), Memory Changes Suddenly, Questions/Concerns, Weight gain consecutive days, Dizziness/Fainting, Nausea/Vomiting, Shortness of Breath, Weight gain over 2 pounds If questions or concerns contact your physician Or seek help at emergency department. Activity Activity as Tolerated: Yes Activity Instructions: Avoid Stress to Incision Driving Instructions: No Driving/Refer to Dr. Main Discharge Diet: No Restrictions Diet After 24 Hours: Clear Liquid if Nauseous If Any Problems/Questions/Issu: Contact Your Physician, Go to Emergency Room Skin/Wound Care Infection Signs and Symptoms: Increased Redness, Foul Odor of Wound, Increased Drainage, Skin Itchy or Has a Rash, Increased Swelling, Temperature Above 101 F Bathing Instructions: Shower Stitches/Teressa/Dermabond Dis: Dermabond, Care of Stitches JAMIE FRANKS DO Feb 09, 2021 21:44
[2021-02-09 21:51] VITALS: BP 139/77
[2021-02-09 22:00] VITALS: BP 139/95
[2021-02-09] MEDS ORDERED: ONDANSETRON 4 MG/2 ML (SDV) Z0FRAN IVP PRN (22:00)
[2021-02-09] MEDS ORDERED: PHENYLEPHRINE 100 MCG/ML 10 ML (ANESTHESIA) SYR ONE (22:00)
--- NOTE | 2021-02-09 22:05 | Anesthesia-General Post-Op ---
General Patient Condition Mental Status/LOC: Same as Preop Cardiovascular: Satisfactory Nausea/Vomiting: Absent Respiratory: Satisfactory Pain: Controlled Complications: Absent Post Op Complications Complications None Follow Up Care/Instructions Patient Instructions None needed. Anesthesia/Patient Condition Patient Condition Patient is doing well, no complaints, stable vital signs, no apparent adverse anesthesia problems. No complications reported per nursing. DEREK BOYLE CRNA Feb 09, 2021 22:05
[2021-02-09 22:10] VITALS: BP 128/84
[2021-02-09 22:20] VITALS: BP 124/78
[2021-02-09 22:30] VITALS: BP 126/80
[2021-02-09 22:40] VITALS: BP 120/76
[2021-02-09] MEDS: LACTATED RINGERS 1,000 ML IV SCH (23:15)
[2021-02-09] MEDS: ceFAZolin 2 GM IV Premixed 50 ML IV SCH (23:15)
[2021-02-09] MEDS: HYDROcodone/APAP 5 MG/325 MG (LORTAB) TAB PO PRN (23:31)
[2021-02-10 00:05] VITALS: BP 118/73
--- NOTE | 2021-02-10 02:34 | OPERATIVE REPORT ---
DATE OF SERVICE: 02/09/2021 PREOPERATIVE DIAGNOSES: Dog bite with laceration to chin and neck. POSTOPERATIVE DIAGNOSES: Dog bite with laceration to chin and neck. PROCEDURE: Surgical repair of laceration with 2-layer closure and plastics closure of the skin. SURGEON: Modesto Rowan DO SUPERINTENDENT GEOPHYSICAL LABORATORY: None. ANESTHESIA: General endotracheal tube. SPECIMENS: None. BLOOD LOSS: Scant. FLUIDS: Per anesthesia. POSTOPERATIVE CONDITION: Stable. INDICATION FOR PROCEDURE: The patient is a 45-year-old female who unfortunately had her dog jump up and bite her in the chin and she had a large laceration. FINDINGS: The patient had a large laceration that went all the way down to the mandible through the platysma, it was washed out and then closed. PROCEDURE NOTE: After informed consent was obtained, the patient was brought to the operating room. She was placed on the operating table in supine position. She was sterilely prepped and draped in normal fashion. It turns out she had a T-shaped incision that the small T was 4 cm long. The long portion of the laceration was 7.7 cm long and then off of this 7 cm, she had another area of 2.2 cm with a very small, almost hockey stick off of it of probably 4-5 mm, then up on her cheek a little bit higher, she had a 2.4 cm laceration, a 1.5 cm laceration and a 1.2 cm laceration. I started by first copiously irrigating these areas with normal saline. There was no gross contamination. There was very minimal bleeding, it actually had stopped on its own and at this point, then elected to start closing this incision started with a 4 cm portion of the T laceration closed with 4 subcutaneous undyed 4-0 Monocryl sutures, then had used two 5-0 Prolene simple sutures. Next, closed the small 2.2 cm hockey stick laceration off of the long incisions, closed this was 6 simple interrupted 5-0 Prolene sutures. At this point, then started closing the long 7.7 cm incision, first closed the platysma layer, the deep layer that was right on the mandible, closed it with 3-0 Vicryl stitches. Three deep stitches in the platysma to close this. I then closed the incision with 10 subcuticular undyed Monocryl stitches. I then turned my attention to the 3 lacerations on the cheek. The 2.4 cm incision was closed with 1 subcuticular stitch, 4-0 Monocryl and one simple 5-0 Prolene stitch. The 1.5 cm incision was closed with #1 subcutaneous 4-0 Monocryl stitch and then the 1.2 cm incision was really not below the skin, so this was just glued. The area was cleaned and dried and some more skin Affix was placed on the long 7.7 cm incision. The patient tolerated the procedure. She was then transferred to recovery room in stable condition. Sponge, instrument and needle count correct at the end of the case. Job ID: [id number] DocumentID: [id number] Dictated Date: 02/09/2021 21:58:39 Sawmill Equipment Operator Date: 02/10/2021 02:33:38 Dictated By: MODESTO ROWAN DO
[2021-02-10 04:00] VITALS: BP 108/68
[2021-02-10] MEDS: LACTATED RINGERS 1,000 ML IV SCH (06:52)
[2021-02-10] MEDS: ceFAZolin 2 GM IV Premixed 50 ML IV SCH (06:53)
[2021-02-10] MEDS: HYDROcodone/APAP 5 MG/325 MG (LORTAB) TAB PO PRN (08:22)
[2021-02-10] MEDS ORDERED: PANTOPRAZOLE 40 MG (PROTONIX) VIAL IVP SCH (09:00)
== END 2021-02-10 09:30 | disposition home or self-care (01) ==
LOC: EDUNIT# 18:40 → 4TH 18:45 → ER 18:45 → UNDOADMOB 22:53 → 4TH 22:53 → UNDODISOB 02-10 09:15 → ER 02-10 09:30
PROVIDERS: ATTEND Surgery
DX: S11.91XA Laceration without foreign body of unspecified part of neck, initial encounter (principal); S01.81XA Laceration without foreign body of other part of head, initial encounter; F41.9 Anxiety disorder, unspecified; F31.9 Bipolar disorder, unspecified; F17.290 Nicotine dependence, other tobacco product, uncomplicated; W54.0XXA Bitten by dog, initial encounter; Z79.891 Long term (current) use of opiate analgesic; Z90.89 Acquired absence of other organs; Z79.899 Other long term (current) drug therapy; Z90.710 Acquired absence of both cervix and uterus
CPT/HCPCS: 36415; 70491; 80053; 84703; 85025; 90375; 90471; 90675; 90715; 96365; 96366; 96372; 96375

== ENCOUNTER 2021-02-23 09:55 | Outpatient (RCR) | payer SELFPAY ==
[2021-02-12 13:55] VITALS: BP 132/95
[2021-02-16 07:25] VITALS: BP 112/83
[2021-02-23 09:55] VITALS: BP 120/82
[~2021-02-23 09:55] MED LIST changes: +RABIES VACCINE HUMAN DIPL CELL 1 ML/2.5 UNITS SYR INJ ONE
== END 2021-02-23 10:04 | disposition home or self-care (01) ==
LOC: SDC 09:55
PROVIDERS: ATTEND Emergency Medicine
DX: Z29.14 Encounter for prophylactic rabies immune globulin (principal)
CPT/HCPCS: 90471; 90675; 96372

== ENCOUNTER 2023-06-30 11:32 | Observation (INO) | payer BC ==
[~2023-06-30] VITALS: Ht 172.7 cm; Wt 91.2 kg
[~2023-06-30 11:32] MED LIST changes: +ALBU8.5H6 IH; -DOCU-241 PO; +DOCU-26 PO; -RABIES VACCINE HUMAN DIPL CELL 1 ML/2.5 UNITS SYR INJ ONE; -RT-ALBUINH IH
--- NOTE | 2023-06-30 11:51 | ED Abdominal Pain ---
General Chief Complaint: Abdominal/GI Problems Stated Complaint: HX OF PANCREATITIS | ABD PAIN Source of Information: Patient Exam Limitations: No Limitations (OLIVA VEGA APRN) History of Present Illness Date Seen by Provider: Jun 30, 2023 Time Seen by Provider: 11:36 Initial Comments 48-year-old female presents to the ER with complaints of right upper quadrant pain starting on or Thursday, states now the pain is in her left upper quadrant. She has a history of pancreatitis, states that this feels like her previous pancreatitis. She is uncertain what causes her pancreatitis. Denies alcohol or drug use. He has had her gallbladder removed. She also reports nausea, denies vomiting. Denies fevers, diarrhea, dysuria. Last bowel movement was this morning and normal. Abdominal surgeries include hysterectomy, ap pendectomy, and cholecystectomy. (OLIVA VEGA APRN) Allergies and Home Medications Allergies Coded Allergies: Ez Known Allergies (Verified Allergy, Unknown, 06/30/23) Patient Home Medication List Home Medication List Reviewed: Yes (OLIVA VEGA APRN) Cholecalciferol (Vitamin D3) (Vitamin D) 2,000 Unit Capsule, 2,000 UNIT PO DAILY, (Reported) Entered as Reported by: YAQUELIN YOUNG on 03/20/16 183 Docusate Sodium (Stool Softener) 100 Mg Capsule, 100 MG PO DAILY PRN for CONSTIPATION, (Reported) Entered as Reported by: YAQUELIN YOUNG on 03/20/16 1837 Estrogens, Conjugated (Premarin) 0.625 Mg Tablet, 0.625 MG PO NEEDED, (Reported) Entered as Reported by: YAQUELIN YOUNG on 03/20/16 1838 Hydrocodone Bit/Acetaminophen (HYDROcodone/APAP 5 MG/325 MG TAB) 1 Tab Tab, 1 TAB PO Q8H PRN for PAIN-MODERATE (5-7) Prescribed by: JAMIE FRANKS on 02/09/212143 Paroxetine HCl (Paroxetine HCl) 20 Mg Tablet, 20 MG PO DAILY, (Reported) Entered as Reported by: CAMPBELL SILVERIO on 12/06/15 1638 Review of Systems Review of Systems Constitutional: see HPI (OLIVA VEGA APRN) Past Nhbagjj-Kyvgbg-Owfakg Hx Patient Social History Tobacco Use?: Yes Use of E-Cig and/or Vaping dev: Yes Substance use?: No Alcohol Use?: No (OLIVA VEGA APRN) Immunizations Up To Date Tetanus Booster (TDap): Unknown (OLIVA VEGA APRN) Seasonal Allergies Seasonal Allergies: No (OLIVA VEGA APRN) Past Medical History Surgery/Hospitalization HX: pancreatitis, appendectomy Surgeries: Yes (HYST/BSO) Appendectomy, Gallbladder, Hysterectomy, Oophorectomy, Orthopedic Respiratory: No Currently Using CPAP: No Currently Using BIPAP: No Cardiac: Yes (hx PVC's) Neurological: No Reproductive Disorders: No FIGURE SKATER History: Hysterectomy Sexually Transmitted Disease: No HIV/AIDS: No Genitourinary: No Gastrointestinal: Yes Gall Bladder Disease Musculoskeletal: No Endocrine: No HEENT: No Cancer: No Psychosocial: Yes Anxiety, Bipolar, Depression Integumentary: No Blood Disorders: No Adverse Reaction/Blood Tranf: No (OLIVA VEGA APRN) Family Medical History Anxiety disorder 19 MOTHER, Onset:Unknown FH: bipolar disorder 19 MOTHER, Onset:Unknown Cancer (OLIVA VEGA APRN) Physical Exam Vital Signs Vital Signs - First Documented 06/30/23 11:44 Temp 36.3 Pulse 78 Resp 18 B/P (MAP) 136/93 (107) Pulse Ox 98 (VERONICA BURGER MD) Vital Signs Capillary Refill : (OLIVA VEGA APRN) Height/Weight/BMI Height: 5'8.00" Weight: 175lbs. 0.0oz. [id number]; 33.00 BMI Method:Stated General Appearance: WD/WN, mild distress Neck: supple, normal inspection Respiratory: lungs clear, normal breath sounds, no respiratory distress, no accessory muscle use Cardiovascular: regular rate, rhythm Gastrointestinal: normal bowel sounds, soft, tenderness (Bilateral upper lower quadrants) Extremities: normal range of motion, normal inspection Neurologic/Psychiatric: alert, normal mood/affect Skin: normal color, warm/dry (OLIVA VEGA APRN) Progress/Results/Core Measures Results/Orders Lab Results Laboratory Tests Test 06/30/23 11:50 06/30/23 12:20 Range/Units White Blood Count 4.6 4.3-11.0 10^3/uL Red Blood Count 4.47 3.80-5.11 10^6/uL Hemoglobin 14.5 11.5-16.0 g/dL Hematocrit 44 35-52 % Mean Corpuscular Volume 97 80-99 fL Mean Corpuscular Hemoglobin 32 25-34 pg Mean Corpuscular Hemoglobin Concent 33 32-36 g/dL Red Cell Distribution Width 12.1 10.0-14.5 % Platelet Count 246 130-400 10^3/uL Mean Platelet Volume 8.9 L 9.0-12.2 fL Immature Granulocyte % (Auto) 0 % Neutrophils (%) (Auto) 49 42-75 % Lymphocytes (%) (Auto) 38 12-44 % Monocytes (%) (Auto) 10 0-12 % Eosinophils (%) (Auto) 2 0-10 % Basophils (%) (Auto) 1 0-10 % Neutrophils # (Auto) 2.3 1.8-7.8 10^3/uL Lymphocytes # (Auto) 1.8 1.0-4.0 10^3/uL Monocytes # (Auto) 0.5 0.0-1.0 10^3/uL Eosinophils # (Auto) 0.1 0.0-0.3 10^3/uL Basophils # (Auto) 0.0 0.0-0.1 10^3/uL Immature Granulocyte # (Auto) 0.0 0.0-0.1 10^3/uL Sodium Level 137 135-145 MMOL/L Potassium Level 4.7 3.6-5.0 MMOL/L Chloride Level 101 98-107 MMOL/L Carbon Dioxide Level 26 21-32 MMOL/L Anion Gap 10 5-14 MMOL/L Blood Urea Nitrogen 14 7-18 MG/DL Creatinine 0.78 0.60-1.30 MG/DL Estimat Glomerular Filtration Rate 93 BUN/Creatinine Ratio 18 Glucose Level 85 70-105 MG/DL Calcium Level 9.2 8.5-10.1 MG/DL Corrected Calcium 9.0 8.5-10.1 MG/DL Total Bilirubin 0.4 0.1-1.0 MG/DL Aspartate Amino Transf (AST/SGOT) 227 H 5-34 U/L Alanine Aminotransferase (ALT/SGPT) 213 H 0-55 U/L Alkaline Phosphatase 130 40-136 U/L Total Protein 7.1 6.4-8.2 GM/DL Albumin 4.3 3.2-4.5 GM/DL Lipase 217 H 8-78 U/L Urine Color YELLOW Urine Clarity CLEAR Urine pH 7.0 5-9 Urine Specific [place] 1.010 L 1.016-1.022 Urine Protein NEGATIVE NEGATIVE Urine Glucose (UA) NEGATIVE NEGATIVE Urine Ketones NEGATIVE NEGATIVE Urine Nitrite NEGATIVE NEGATIVE Urine Bilirubin NEGATIVE NEGATIVE Urine Urobilinogen 0.2 < = 1.0 MG/DL Urine Leukocyte Esterase NEGATIVE NEGATIVE Urine RBC (Auto) NEGATIVE NEGATIVE Urine RBC NONE /HPF Urine WBC NONE /HPF Urine Squamous Epithelial Cells 0-2 /HPF Urine Crystals NONE /LPF Urine Calcium Oxalate Crystals /LPF Urine Bacteria NEGATIVE /HPF Urine Casts NONE /LPF Urine Mucus NEGATIVE /LPF Urine Culture Indicated NO (VERONICA BURGER MD) Medications Given in ED Current Medications Medications Dose Ordered Sig/Kaushal Route Start Time Stop Time Status Last Admin Dose Admin Fentanyl Citrate 50 mcg ONCE ONCE IVP 06/30/23 12:00 06/30/23 12:01 DC 06/30/23 11:52 50 MCG Morphine Sulfate 4 mg ONCE ONCE IVP 06/30/23 13:00 06/30/23 13:01 DC 06/30/23 13:22 4 MG Ondansetron HCl 4 mg ONCE ONCE IVP 06/30/23 12:00 06/30/23 12:01 DC 06/30/23 11:52 4 MG (VERONICA BURGER MD) Vital Signs/I&O 06/30/23 11:44 Temp 36.3 Pulse 78 Resp 18 B/P (MAP) 136/93 (107) Pulse Ox 98 (VERONICA BURGER MD) Progress Progress Note : Progress Note Patient seen and evaluated, resting in bed, mild distress. Based on exam and symptoms, differential diagnosis includes but is not limited to pancreatitis, gastritis, peptic ulcer disease, other intra-abdominal pathology. Work-up initiated including CBC, CMP, lipase, UA. IV fluids, fentanyl, Zofran ordered. 1244 Labs reviewed. CBC grossly normal. CMP shows elevated AST 227, elevated ALT 213. Lipase elevated to 17. Urinalysis negative for infection. I called and spoke with Dr. Begum, [facility] hospitalist, regarding admission for patient. She agrees to admit patient. She will place admission orders. Plan of care discussed with patient. Patient agreeable to admission plan. Patient reports continued pain, will order morphine. (OLIVA VEGA APRN) Departure Communication (Admissions) Time/Spoke to Admitting Phy: 12:44 Dr. Begum, see progress note. (OLIVA VEGA APRN) Impression Primary Impression: Acute pancreatitis Qualified Codes: K85.90 - Acute pancreatitis without necrosis or infection, unspecified Additional Impression: Elevated LFTs Disposition: 01 HOME, SELF-CARE Condition: Stable Admissions Decision to Admit Reason: Admit from ER (General) Decision to Admit/Date: Jun 30, 2023 Time/Decision to Admit Time: 12:44 (OLIVA VEGA APRN) Departure-Patient Inst. Referrals: [facility] [place] ([place]) Primary Care Physician ATTENDING PHYSICIAN NOTE: I was physically present as attending physician in the emergency department during the care of this patient, but I was not directly involved in the decision making or delivery of care for this patient. (VERONICA BURGER MD) OLIVA VEGA APRN Jun 30, 2023 11:51 VERONICA BURGER MD Jun 30, 2023 18:11
[2023-06-30 11:58] LABS: BASOPHILS % (AUTO) 1 % (0-10); EOSINOPHILS # (AUTO) 0.1 10^3/uL (0.0-0.3); EOSINOPHILS % (AUTO) 2 % (0-10); HEMATOCRIT 44 % (35-52); HEMOGLOBIN 14.5 g/dL (11.5-16.0); LYMPHOCYTES # (AUTO) 1.8 10^3/uL (1.0-4.0); LYMPHOCYTES % (AUTO) 38 % (12-44); MEAN CORPUSCULAR HEMOGLOBIN 32 pg (25-34); MEAN CORPUSCULAR HGB CONC 33 g/dL (32-36); MEAN CORPUSCULAR VOLUME 97 fL (80-99); MEAN PLATELET VOLUME 8.9 fL (9.0-12.2); MONOCYTES # (AUTO) 0.5 10^3/uL (0.0-1.0); MONOCYTES % (AUTO) 10 % (0-12); NEUTROPHILS # (AUTO) 2.3 10^3/uL (1.8-7.8); NEUTROPHILS % (AUTO) 49 % (42-75); PLATELET COUNT 246 10^3/uL (130-400); WHITE BLOOD COUNT 4.6 10^3/uL (4.3-11.0)
[2023-06-30] MEDS ORDERED: ONDANSETRON INJECTION 4 MG/2 ML (SDV) IVP ONE (12:00)
[2023-06-30] MEDS ORDERED: fentaNYL INJECTION 100 MCG/2 ML VIAL IVP ONE (12:00)
[2023-06-30] MEDS ORDERED: NS IV 1000 ML 1,000 ML IV SCH (12:00)
[2023-06-30 12:04] LABS: ALBUMIN 4.3 GM/DL (3.2-4.5); POTASSIUM 4.7 MMOL/L (3.6-5.0)
[2023-06-30 12:05] LABS: CALCIUM 9.2 MG/DL (8.5-10.1)
[2023-06-30 12:06] LABS: TOTAL PROTEIN 7.1 GM/DL (6.4-8.2)
[2023-06-30 12:08] LABS: BILIRUBIN,TOTAL 0.4 MG/DL (0.1-1.0)
[2023-06-30 12:10] LABS: CREATININE SERUM 0.78 MG/DL (0.60-1.30)
[2023-06-30 12:35] LABS: BACTERIA,URINE NEGATIVE /HPF; BILIRUBIN,URINE NEGATIVE (NEGATIVE); CLARITY,URINE CLEAR; COLOR,URINE YELLOW; GLUCOSE, URINE (UA) NEGATIVE (NEGATIVE); KETONES,URINE NEGATIVE (NEGATIVE); LEUKOCYTE ESTERASE ,URINE NEGATIVE (NEGATIVE); NITRITE,URINE NEGATIVE (NEGATIVE); PROTEIN,URINE NEGATIVE (NEGATIVE); SQUAMOUS EPITHELIAL CELL,UR 0-2 /HPF
[2023-06-30] MEDS ORDERED: morphine INJ 4 MG/ML 1 ML (VIAL/SYRINGE) IVP ONE (13:00)
[2023-06-30 14:07] VITALS: BP 143/88
[2023-06-30] MEDS ORDERED: ENOXAPARIN 40 MG/0.4 ML SYRINGE SC SCH (15:45)
[2023-06-30 15:52] VITALS: BP 115/76
[2023-06-30] MEDS: NS IV 1000 ML 1,000 ML IV SCH (15:58)
[2023-06-30] MEDS ORDERED: ONDANSETRON INJECTION 4 MG/2 ML (SDV) IVP PRN (17:15)
[2023-06-30] MEDS ORDERED: PROMETHAZINE INJ 25 MG/ML VIAL IVP PRN (17:15)
[2023-06-30] MEDS ORDERED: PROMETHAZINE INJ 25 MG/ML VIAL ONE (17:17)
[2023-06-30] MEDS: morphine INJ 4 MG/ML 1 ML (VIAL/SYRINGE) IVP PRN ×2 (19:28→21:36)
[2023-06-30 20:38] VITALS: BP 117/75
[2023-06-30 23:58] VITALS: BP 104/64
[2023-07-01] MEDS: NS IV 1000 ML 1,000 ML IV SCH ×2 (00:13→06:34)
[2023-07-01 03:55] VITALS: BP 105/67
[2023-07-01 06:12] LABS: BASOPHILS % (AUTO) 1 % (0-10); EOSINOPHILS # (AUTO) 0.1 10^3/uL (0.0-0.3); EOSINOPHILS % (AUTO) 4 % (0-10); HEMATOCRIT 36 % (35-52); HEMOGLOBIN 12.4 g/dL (11.5-16.0); LYMPHOCYTES # (AUTO) 1.2 10^3/uL (1.0-4.0); LYMPHOCYTES % (AUTO) 41 % (12-44); MEAN CORPUSCULAR HEMOGLOBIN 33 pg (25-34); MEAN CORPUSCULAR HGB CONC 34 g/dL (32-36); MEAN CORPUSCULAR VOLUME 96 fL (80-99); MONOCYTES # (AUTO) 0.3 10^3/uL (0.0-1.0); MONOCYTES % (AUTO) 11 % (0-12); NEUTROPHILS # (AUTO) 1.3 10^3/uL (1.8-7.8); NEUTROPHILS % (AUTO) 42 % (42-75); PLATELET COUNT 192 10^3/uL (130-400)
[2023-07-01 06:33] LABS: ALBUMIN 3.3 GM/DL (3.2-4.5); POTASSIUM 4.3 MMOL/L (3.6-5.0)
[2023-07-01 06:34] LABS: CALCIUM 8.3 MG/DL (8.5-10.1)
[2023-07-01 06:36] LABS: TOTAL PROTEIN 5.6 GM/DL (6.4-8.2)
[2023-07-01 06:37] LABS: BILIRUBIN,TOTAL 0.6 MG/DL (0.1-1.0)
[2023-07-01 06:39] LABS: CREATININE SERUM 0.75 MG/DL (0.60-1.30)
[2023-07-01 07:49] VITALS: BP 122/84
--- NOTE | 2023-07-01 10:26 | History & Physical ---
TAI ORTA 07/01/23 1026: History of Present Illness History of Present Illness Reason for visit/HPI Abiola Way is a 48 y/o female who presented to the [facility] ED due to a ~4 day history of worsening abd pain. She reports that she has had similar pain in the past, but this time the pain lasted longer and caused a fullness in her upper abd that she had not previously had. She states that 1-2 times a year she has episodes of abd pain similar to this, but not as intense. Denies jaundice, scleral icterus, or puritus during this or previous episodes. She states that last week she ate an increased about of fatty and sugary foods, which she has correlated with prior episodes. Denies alcohol or drug use. 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 She states the usually symptoms improve if she decreases PO intake and only drinks water, then slowly introduces solid food back into her diet. Date of Admission Jun 30, 2023 at 13:38 Date Seen by a Provider: Jul 01, 2023 Time Seen by a Provider: 10:30 I consulted on this patient on 07/01/23 10:11 Attending Physician [facility] Admitting Physician Admitting Physician: Suleiman Ramirez MD Attending Physician: Suleiman Ramirez MD Consult Allergies and Home Medications Allergies Coded Allergies: NKANo Known Allergies (Verified Allergy, Unknown, 06/30/23) Patient Home Medication List Home Medication List Reviewed: Yes Amitriptyline HCl (Amitriptyline HCl) 100 Mg Tablet, 100 MG PO HS, (Reported) Entered as Reported by: TRISTON GODINEZ on 07/01/23 1100 Last Action: Reviewed Calcium Carbonate (Calcium) 600 Mg Calcium (1500 Mg) Tablet, 600 MG PO 1200, (Reported) Entered as Reported by: TRISTON GODINEZ on 07/01/23 1100 Last Action: Reviewed Cholecalciferol (Vitamin D3) (Vitamin D3) 50 Mcg (2000 Unit) Capsule, 50 MCG PO 1200, (Reported) Entered as Reported by: TRISTON GODINEZ on 07/01/23 1100 Last Action: Reviewed Clonazepam (Clonazepam) 0.5 Mg Tablet, 0.5 MG PO DAILY PRN for ANXIETY, (Reported) Entered as Reported by: TRISTON GODINEZ on 07/01/23 1106 Last Action: Reviewed Cyclobenzaprine HCl (Cyclobenzaprine HCl) 10 Mg Tablet, 10 MG PO HS, (Reported) Entered as Reported by: TRISTON GODINEZ on 07/01/231099 Last Action: Reviewed Estrogens Conjugated (Premarin) 0.625 Mg/Gram Cr, 1 GM VG 2X WEEKLY, (Reported) Entered as Reported by: TRISTON GODINEZ on 07/01/23 1106 Last Action: Reviewed Magnesium Oxide (Magnesium) 400 Mg Magnesium Tablet, 400 MG PO HS, (Reported) Entered as Reported by: TRISTON GODINEZ on 07/01/231099 Last Action: Reviewed Pantoprazole Sodium (Pantoprazole Sodium) 20 Mg Tablet.dr, 20 MG PO DAILY, (Reported) Entered as Reported by: TRISTON GODINEZ on 07/01/231099 Last Action: Reviewed Paroxetine HCl (Paroxetine HCl) 40 Mg Tablet, 40 MG PO DAILY, (Reported) Entered as Reported by: TRISTON GODINEZ on 07/01/231099 Last Action: Reviewed Pregabalin (Pregabalin) 50 Mg Capsule, 50 MG PO 1200, (Reported) Entered as Reported by: TRISTON GODINEZ on 07/01/231099 Last Action: Reviewed Discontinued Medications Cholecalciferol (Vitamin D3) (Vitamin D) 2,000 Unit Capsule, 2,000 UNIT PO DAILY, (Reported) Discontinued Reason: No Longer Taking Entered as Reported by: YAQUELIN YOUNG on 03/20/161836 Last Action: Discontinued Docusate Sodium (Stool Softener) 100 Mg Capsule, 100 MG PO DAILY PRN for CONSTIPATION, (Reported) Discontinued Reason: No Longer Taking Entered as Reported by: YAQUELIN YOUNG on 03/20/161836 Last Action: Discontinued Estrogens, Conjugated (Premarin) 0.625 Mg Tablet, 0.625 MG PO NEEDED, (Reported) Discontinued Reason: No Longer Taking Entered as Reported by: YAQUELIN YOUNG on 03/20/161837 Last Action: Discontinued Hydrocodone Bit/Acetaminophen (HYDROcodone/APAP 5 MG/325 MG TAB) 1 Tab Tab, 1 TAB PO Q8H PRN for PAIN-MODERATE (5-7) Discontinued Reason: No Longer Taking Prescribed by: JAMIE FRANKS on 02/09/21 3045 Last Action: Discontinued Paroxetine HCl (Paroxetine HCl) 20 Mg Tablet, 20 MG PO DAILY, (Reported) Discontinued Reason: No Longer Taking Entered as Reported by: CAMPBELL SILVERIO on 12/06/15 2970 Last Action: Discontinued Past Lbuuyne-Osxean-Itxdfs Hx Patient Social History Tobacco Use?: No Use of E-Cig and/or Vaping dev: Yes E-Cig or Vaping type used: Nicotine Use of E-Cig and/or Vaping Danny: Current Everyday User Substance use?: No Alcohol Use?: No Pt feels they are or have been: No Immunizations Up To Date Tetanus Booster (TDap): Unknown Seasonal Allergies Seasonal Allergies: No Current Status status: No status: No Advance Directives: No Communicates: Verbally Primary Language: [place] Islander Preferred Spoken Language: [place]er Implanted or Applied Medical D: None Past Medical History Surgeries: Appendectomy, Gallbladder, Hysterectomy, Oophorectomy, Orthopedic Currently Using CPAP: No Currently Using BIPAP: No ATG ARCHITECT History: Hysterectomy Sexually Transmitted Disease: No HIV/AIDS: No Gall Bladder Disease Anxiety, Bipolar, Depression Blood Disorders: No Adverse Reaction/Blood Tranf: No Family Medical History Anxiety disorder 19 MOTHER, Onset:Unknown FH: bipolar disorder 19 MOTHER, Onset:Unknown Cancer Review of Systems Constitutional: see HPI EENTM: see HPI Respiratory: no symptoms reported Cardiovascular: see HPI Gastrointestinal: RUQ, LUQ, abdominal pain; No constipation, No diarrhea, No heartburn, No jaundice, No loss of appetite; nausea Genitourinary: no symptoms reported : No Musculoskeletal: no symptoms reported Skin: no symptoms reported; No change in color, No pruritus, No rash Psychiatric/Neurological: No Symptoms Reported Physical Exam Vital Signs Vital Signs - First Documented 06/30/23 06/30/23 11:44 14:01 Temp 36.3 Pulse 78 Resp 18 B/P (MAP) 136/93 (107) Pulse Ox 98 O2 Delivery Room Air Capillary Refill : Less Than 3 Seconds Height, Weight, BMI Height: 5'8.00" Weight: 175lbs. 0.0oz. 79.303400co; 30.57 BMI Method:Stated General Appearance: No Apparent Distress Eyes: Bilateral Eye Normal Inspection HEENT: Moist Mucous Membranes; No Scleral Icterus (L), No Scleral Icterus (R) Respiratory: Lungs Clear, Normal Breath Sounds, No Accessory Muscle Use, No Respiratory Distress Cardiovascular: Regular Rate, Rhythm, No Edema, No Murmur Gastrointestinal: Normal Bowel Sounds, No Organomegaly, No Pulsatile Mass, Non Tender, Soft Extremity: Normal Capillary Refill, Non Tender Neurologic/Psychiatric: Alert, Oriented x3 Skin: Normal Color, Warm/Dry Assessment/Plan Assessment and Plan Abiola Way is a 48 y/o female with a PMH of pancreatitis, DEBRA, who was admitted for treatment of acute pancreatitis. Pancreatitis/ Hepatitis - History of 1-2 episodes of ABD pain year - S/P cholecystectomy ~2018 - ~4 day history of worsening abd pain started in [place] moved to [facility] -~4 day history of N/V - elevated AST/ ALT / lipase 06/30. AST/ ALT >500 07/01 - Patient states pain is improved this AM PLAN > continue PRN Zofran and Phenergin > Continue PRN fentanyl and morphine. > Start PO intake, if tolerates well plan to DC > F/U with PCP and have lipid panel drawn. > Consider AMA testing Dispo: admit for Obs DC today if tolerates PO intake. DVT PPX- Enoxiparin GI PPX- N/A Diet: as tolerated. Tai Orta MS4 Problems: (1) Right sided abdominal pain Status: Acute (2) Elevated LFTs (3) Acute pancreatitis Status: Acute Qualifiers: Qualified Codes: K85.90 - Acute pancreatitis without necrosis or infection, unspecified Admission Diagnosis Admission Status: Observation SULEIMAN RAMIREZ MD 07/01/23 1730: Allergies and Home Medications Allergies Coded Allergies: NKANo Known Allergies (Verified Allergy, Unknown, 06/30/23) Patient Home Medication List Amitriptyline HCl (Amitriptyline HCl) 100 Mg Tablet, 100 MG PO HS, (Reported) Entered as Reported by: TRISTON GODINEZ on 07/01/231099 Last Action: Reviewed Calcium Carbonate (Calcium) 600 Mg Calcium (1500 Mg) Tablet, 600 MG PO 1200, (Reported) Entered as Reported by: TRISTON GODINEZ on 07/01/23 1100 Last Action: Reviewed Cholecalciferol (Vitamin D3) (Vitamin D3) 50 Mcg (2000 Unit) Capsule, 50 MCG PO 1200, (Reported) Entered as Reported by: TRISTON GODINEZ on 07/01/23 1100 Last Action: Reviewed Clonazepam (Clonazepam) 0.5 Mg Tablet, 0.5 MG PO DAILY PRN for ANXIETY, (Reported) Entered as Reported by: TRISTON GODINEZ on 07/01/231105 Last Action: Reviewed Cyclobenzaprine HCl (Cyclobenzaprine HCl) 10 Mg Tablet, 10 MG PO HS, (Reported) Entered as Reported by: TRISTON GODINEZ on 07/01/231099 Last Action: Reviewed Estrogens Conjugated (Premarin) 0.625 Mg/Gram Cr, 1 GM VG 2X WEEKLY, (Reported) Entered as Reported by: TRISTON GODINEZ on 07/01/231105 Last Action: Reviewed Magnesium Oxide (Magnesium) 400 Mg Magnesium Tablet, 400 MG PO HS, (Reported) Entered as Reported by: TRISTON GODINEZ on 07/01/231099 Last Action: Reviewed Pantoprazole Sodium (Pantoprazole Sodium) 20 Mg Tablet.dr, 20 MG PO DAILY, (Reported) Entered as Reported by: TRISTON GODINEZ on 07/01/231099 Last Action: Reviewed Paroxetine HCl (Paroxetine HCl) 40 Mg Tablet, 40 MG PO DAILY, (Reported) Entered as Reported by: TRISTON GODINEZ on 07/01/231099 Last Action: Reviewed Pregabalin (Pregabalin) 50 Mg Capsule, 50 MG PO 1200, (Reported) Entered as Reported by: TRISTON GODINEZ on 07/01/231099 Last Action: Reviewed Discontinued Medications Cholecalciferol (Vitamin D3) (Vitamin D) 2,000 Unit Capsule, 2,000 UNIT PO DAILY, (Reported) Discontinued Reason: No Longer Taking Entered as Reported by: YAQUELIN YOUNG on 03/20/161836 Last Action: Discontinued Docusate Sodium (Stool Softener) 100 Mg Capsule, 100 MG PO DAILY PRN for CONSTIPATION, (Reported) Discontinued Reason: No Longer Taking Entered as Reported by: YAQUELIN YOUNG on 03/20/161836 Last Action: Discontinued Estrogens, Conjugated (Premarin) 0.625 Mg Tablet, 0.625 MG PO NEEDED, (Reported) Discontinued Reason: No Longer Taking Entered as Reported by: YAQUELIN YOUNG on 03/20/161837 Last Action: Discontinued Hydrocodone Bit/Acetaminophen (HYDROcodone/APAP 5 MG/325 MG TAB) 1 Tab Tab, 1 TAB PO Q8H PRN for PAIN-MODERATE (5-7) Discontinued Reason: No Longer Taking Prescribed by: JAMIE FRANKS on 02/09/21 3055 Last Action: Discontinued Paroxetine HCl (Paroxetine HCl) 20 Mg Tablet, 20 MG PO DAILY, (Reported) Discontinued Reason: No Longer Taking Entered as Reported by: CAMPBELL NUSRAT on 12/06/15 1638 Last Action: Discontinued Past Osmclcn-Qnvbfs-Qdzobp Hx Family Medical History Anxiety disorder 19 MOTHER, Onset:Unknown FH: bipolar disorder 19 MOTHER, Onset:Unknown Supervisory-Addendum Brief Verification & Attestation Participated in pt care: history, physical Personally performed: exam, history Care discussed with: Medical Student Procedures: n/a Verification and Attestation of Medical Student E/M Service A medical student performed and documented this service in my presence. I reviewed and verified all information documented by the medical student and made modifications to such information, when appropriate. I personally performed the physical exam and medical decision making. Suleiman Ramirez, Jul 01, 2023,17:29 Agree with above, in addition Acute Pancreatitis Abdominal Pain N/V - Will advance diet today and ok to discharge if patient tolerates Elevated LFTs - Repeat CMP in 1 week TAI ORTA Jul 01, 2023 10:26 SULEIMAN RAMIREZ MD Jul 01, 2023 17:30
[2023-07-01] MEDS ORDERED: MAGN400T39 PO (11:00)
[2023-07-01] MEDS ORDERED: CYCL10TA25 PO (11:00)
[2023-07-01] MEDS ORDERED: CALC600T91 PO (11:00)
[2023-07-01] MEDS ORDERED: AMIT100T2 PO (11:00)
[2023-07-01] MEDS ORDERED: CHOL20003 PO (11:00)
[2023-07-01] MEDS ORDERED: PARO40TA3 PO (11:00)
[2023-07-01] MEDS ORDERED: PANT20TA18 PO (11:00)
[2023-07-01] MEDS ORDERED: PREG50CA65 PO (11:00)
[2023-07-01] MEDS ORDERED: CLON0.5T4 PO (11:06)
[2023-07-01] MEDS ORDERED: EST30C VG (11:06)
[2023-07-01 11:40] VITALS: BP 126/82
--- NOTE | 2023-07-01 12:55 | Discharge Summary ---
Discharge [facility] Discharge Medications New, Converted or Re-Newed RX: Other (No new scripts) Continued Medications: Amitriptyline HCl (Amitriptyline HCl) 100 Mg Tablet 100 MG PO HS, TAB Calcium Carbonate (Calcium) 600 Mg Calcium (1500 Mg) Tablet 600 MG PO 1200, TAB Cholecalciferol (Vitamin D3) (Vitamin D3) 50 Mcg (2000 Unit) Capsule 50 MCG PO 1200, CAP Clonazepam (Clonazepam) 0.5 Mg Tablet 0.5 MG PO DAILY PRN for ANXIETY, TAB Cyclobenzaprine HCl (Cyclobenzaprine HCl) 10 Mg Tablet 10 MG PO HS, TAB Estrogens Conjugated (Premarin) 0.625 Mg/Gram Cr 1 GM VG 2X WEEKLY, EA Magnesium Oxide (Magnesium) 400 Mg Magnesium Tablet 400 MG PO HS, TAB Pantoprazole Sodium (Pantoprazole Sodium) 20 Mg Tablet.dr 20 MG PO DAILY, TAB Paroxetine HCl (Paroxetine HCl) 40 Mg Tablet 40 MG PO DAILY, TAB Pregabalin (Pregabalin) 50 Mg Capsule 50 MG PO 1200, CAP Patient Instructions Goal/Follow Up Appt: F.u with PCP 1 week with CMP Patient Instructions: Patient needs repeat CMP in 1 week to monitor LFTs Activity & Diet Discharge Diet: Low Residue (Emmet diet) Activity as Tolerated: Yes SULEIMAN RAMIREZ MD Jul 01, 2023 12:55
--- NOTE | 2023-07-01 14:20 | Discharge Summary ---
MARIYAJHONNY M 07/01/23 1420: Diagnosis/Chief Complaint Date of Admission Jun 30, 2023 at 13:38 Date of Discharge Jul 01, 2023 at 13:28 Discharge Date: Jul 01, 2023 Admission Diagnosis Admission Diagnosis Acute panceratitis, elevated LFTs Discharge Diagnosis Acute Pancreatitis, elevated LFTs Reason Hospital Visit [address] is a 48 y/o female who presented to the [facility] ED due to a ~4 day history of worsening abd pain. She reports that she has had similar pain in the past, but this time the pain lasted longer and caused a fullness in her upper abd that she had not previously had. She states that 1-2 times a year she has episodes of abd pain similar to this, but not as intense. Denies jaundice, scleral icterus, or puritus during this or previous episodes. She states that last week she ate an increased about of fatty and sugary foods, which she has co rrelated with prior episodes. Denies alcohol or drug use. 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 She states the usually symptoms improve if she decreases PO intake and only drinks water, then slowly introduces solid food back into her diet. Discharge Summary Hospital Course Was the Problem List Reviewed?: Yes Hospital Course Presented to ED, received PRN zofran, Fengeran, fental and morphine, placed on a clear fluid diet, labs drawn. Labs showed increased AST/ ALT and Lipase. Admitted for Ops and pain control 2/2 pancreatitis. PRN pain and anti emetic medications continued. 07/01 AST/ ALT increased, but symptoms improved. Diet was advanced and she tolerated PO intake well. Labs Laboratory Tests 06/30/23 11:50: Mean Platelet Volume 8.9L, Aspartate Amino Transf (AST/SGOT) 227H, Alanine Aminotransferase (ALT/SGPT) 213H, Lipase 217H 06/30/23 12:20: Urine Specific [place] 1.010L 07/01/23 05:00: Aspartate Amino Transf (AST/SGOT) 513H, Alanine Aminotransferase (ALT/SGPT) 50 7#H, Chloride Level 109H, Calcium Level 8.3L, Alkaline Phosphatase 167H, Total Protein 5.6L 07/01/23 05:25: White Blood Count 3.0L, Red Blood Count 3.79L, Neutrophils # (Auto) 1.3L Procedures None. Discharge Physical Examination Allergies: Coded Allergies: Ez Known Allergies (Verified Allergy, Unknown, 06/30/23) Vitals & I&Os Vital Signs Date Time Temp Pulse Resp B/P (MAP) Pulse Ox O2 Delivery O2 Flow Rate FiO2 07/01/23 13:27 07/01/23 11:40 36.1 74 18 97 Room Air Discussion & Recommendations F/u with pcp in 7 days have triglyceride levels drawn Discharge Home Medications Reviewed and agree with Discharge Medication list on patient's Discharge Instruction sheet Condition at Discharge stable Instructions to Patient/Family Please see electronic discharge instructions given to patient. Copy Copies To 1: SULEIMAN RAMIREZ MD, HOLLY R MD 07/01/23 1731: Discharge Summary Discharge Physical Examination Allergies: Coded Allergies: NKANo Known Allergies (Verified Allergy, Unknown, 06/30/23) Copy Copies To 1: SULEIMAN RAMIREZ MD Supervisory-Addendum Brief Verification & Attestation Participated in pt care: history, physical Personally performed: exam, history Care discussed with: Medical Student Procedures: n/a Verification and Attestation of Medical Student E/M Service A medical student performed and documented this service in my presence. I reviewed and verified all information documented by the medical student and made modifications to such information, when appropriate. I personally performed the physical exam and medical decision making. Suleiman Ramirez, Jul 01, 2023,17:31 JHONNY MERAZ Jul 01, 2023 14:20 SULEIMAN RAMIREZ MD Jul 01, 2023 17:31
== END 2023-07-01 13:28 | disposition home or self-care (01) ==
LOC: EDUNIT# 11:32 → ER 11:35 → UNDOADMOB 13:38 → 4TH 13:38 → UNDODISOB 07-01 13:28
PROVIDERS: ADMIT Family Medicine; ATTEND Family Medicine
DX: K85.90 Acute pancreatitis without necrosis or infection, unspecified (principal); R79.89 Other specified abnormal findings of blood chemistry; F17.210 Nicotine dependence, cigarettes, uncomplicated; Z90.49 Acquired absence of other specified parts of digestive tract
CPT/HCPCS: 36415; 80053; 81000; 83690; 85025; 96361; 96375; 96376; G0378

== ENCOUNTER 2023-07-01 11:52 | Outpatient (CLI) | payer BC ==
[~2023-07-01] VITALS: Ht 172.7 cm; Wt 91.2 kg
[~2023-07-01 11:52] MED LIST changes: +AMIT100T2 PO; +CALC600T91 PO; +CHOL20003 PO; +CLON0.5T4 PO; +CYCL10TA25 PO; +MAGN400T39 PO; +PANT20TA18 PO; +PARO40TA3 PO; +PREG50CA65 PO
== END 2023-07-01 16:12 | disposition home or self-care (01) ==
LOC: PREOP 11:52
PROVIDERS: ATTEND Surgery
DX: Z01.818 Encounter for other preprocedural examination (principal)

== ENCOUNTER 2023-07-13 09:36 | Day surgery (SDC) | payer BC ==
[~2023-07-13] VITALS: Ht 172.7 cm; Wt 91.2 kg
--- NOTE | 2023-07-13 09:57 | Progress Note-Pre Operative ---
Pre-Operative Progress Note Date of Available H&P: Jun 30, 2023 Date H&P Reviewed: Jul 13, 2023 Time H&P Reviewed: 09:56 History & Physical: H&P Reviewed, Patient Examed, No changes noted Pre-Operative Diagnosis: GERD, screening colonoscopy JAMIE FRANKS DO Jul 13, 2023 09:57
[2023-07-13 10:15] VITALS: BP 108/80
[2023-07-13] MEDS ORDERED: ONDANSETRON INJECTION 4 MG/2 ML (SDV) IVP ONE (10:20)
[2023-07-13] MEDS ORDERED: LACTATED RINGERS 1,000 ML 1,000 ML IV STA (10:21)
[2023-07-13] MEDS ORDERED: HURRICAINE EXT TUBE (BENZOCAINE) XX PRN (10:30)
[2023-07-13] MEDS ORDERED: ONDANSETRON INJECTION 4 MG/2 ML (SDV) ONE (10:37)
[2023-07-13] MEDS ORDERED: MIDAZOLAM INJ 2 MG/2 ML VIAL ONE (10:44)
[2023-07-13] MEDS ORDERED: proPOfol INJECTION 200 MG/20 ML VIAL IV ONE (11:14)
[2023-07-13 11:40] VITALS: BP 95/71
[2023-07-13 11:45] VITALS: BP 109/68
--- NOTE | 2023-07-13 11:51 | Progress Note-Post Operative ---
Post-Operative Progess Note Surgeon (s)/Personnel Interviewer (s) Surgeon JAMIE FRANKS DO Personnel Interviewer: Braxton Robertson, MSIII Pre-Operative Diagnosis GERD, screening colonoscopy Post-Operative Diagnosis Gastritis Hiatal Hernia Gastric Polyp Rectal polyp diverticula int hemorrhoids Procedure & Operative Findings Date of Procedure 07/13/23 Procedure Performed/Findings EGD with biopsy EGD with hot biopsy removal of polyp Colonoscopy with hot biopsy PROCEDURE NOTE: After informed consent was obtained, the patient was brought to the endoscopy suite, placed in bed in left lateral decubitus position. She was administered IV sedation by the SERVICE LINE COORDINATOR who then monitored vitals the entire time, heart rate, blood pressure and pulse ox and the scope was inserted down the mouth through the esophagus into the stomach. On the way down, noted some mild esophagitis, took a picture, pushed into the stomach, pushed past the antrum into the duodenum. Duodenum looked good. Pulled back and did a biopsy of antrum, then retroflexed the scope, saw small AFS grade III hiatal hernia, took a picture of this and then pulled the scope into the GE junction, took another picture of the hiatal hernia and then did a biopsy of the GE junction. Pushed the scope back into the stomach, noted a few Gastric Polyps and elected to remove two with hot biopsy. Able to completely remove them to be sent to pathology. I then suctioned all the air out of the stomach and pulled the scope up the esophagus and out the mouth. Switched camera, switched gloves, went down below and started the colonoscopy. Pushed all the way to about 110 cm, on the way in note d multiple diverticula throughout the colon. I pushed in and found a entero- colotomy anastomosis; took a picture of this. Then slowly withdrew the scope insufflating to look circumferentially at the skelton starting from the anastomosis, up the ascending colon to the hepatic flexure, then down the transverse colon to the splenic flexure, into the descending colon, down into the sigmoid and then into the rectal vault. I found a small polyp in the rectum and removed it with hot biopsy. Finally, able to retroflex the scope and take a picture of the internal hemorrhoids. The patient tolerated the procedure and she recovered in the endoscopy suite. Recommended for repeat colonoscopy in 5 years Anesthesia Type IV sedation by SERVICE LINE COORDINATOR Estimated Blood Loss Estimated blood loss (mL): scant Specimens/Packing Specimens Removed antral bx GE jxn bx Gastric polyp x 2 rectal polyp JAMIE FRANKS DO Jul 13, 2023 11:51
--- NOTE | 2023-07-13 11:53 | Endoscopy Discharge Instruct ---
Endo Procedure/Findings Findings 1.: Gastritis 2.: Hiatal Hernia, Other Findings (Gastric Polyps) 3.: Polyp 4.: Diverticulosis, Internal Hemorrhoids Discharge Instructions - Activity: You might feel a little sleepy until tomorrow. This is due to the medicine you received to relax you. Until tomorrow, you should: NOT drive a car, operate machinery or power tools. NOT drink any alcoholic beverages. NOT make any important decisions or sign importortant papers. Do not return to work until tomorrow, unless otherwise instructed. Resume previous activities tomorrow. Diet: Start by taking liquids. If you tolerate liquids, advance to solid food. 1.: EGD in 3 years 2.: Colonscopy in 5 years Notify Physician - If you experience excessive bleeding, unusual abdominal pain, fever, or chest pain, contact your doctor immediately. Follow-Up: Other Follow up in my office in one week JAMIE FRANKS DO Jul 13, 2023 11:53
[2023-07-13 13:05] VITALS: BP 109/68
--- NOTE | 2023-07-13 14:51 | Anesthesia-General Post-Op ---
MAC Patient Condition Mental Status/LOC: Same as Preop Cardiovascular: Satisfactory Nausea/Vomiting: Absent Respiratory: Satisfactory Pain: Controlled Complications: Absent Post Op Complications Complications None Follow Up Care/Instructions Patient Instructions None needed. Anesthesiology Discharge Order Discharge Order Patient is doing well, no complaints, stable vital signs, no apparent adverse anesthesia problems. No complications reported per nursing. DAVINA BRUNNER CRNA Jul 13, 2023 14:51
--- NOTE | 2023-07-13 16:04 | Diagnostic Imaging Report ---
INDICATION: 48-year-old female with severe abdominal pain post colonoscopy. COMPARISONS: None FINDINGS: Lung bases are clear. There is scattered gas throughout the luminal viscera. There is a previous enteric anastomosis in the right abdomen most likely within the cecal region. There is no organomegaly or abnormal calcifications. No definite free air suggested by plain radiographic criteria. IMPRESSION: 1. No definite evidence of free air suggested by plain radiographic criteria. Gas is seen throughout viscera. 2. There is enteric anastomosis with surgical staple sutures in the right lower quadrant of the abdomen. Dictated by: Dictated on workstation # [id number]
== END 2023-07-13 13:10 | disposition home or self-care (01) ==
LOC: ENDO 09:36
PROVIDERS: ATTEND Surgery
DX: Z12.11 Encounter for screening for malignant neoplasm of colon (principal); K62.1 Rectal polyp; K31.7 Polyp of stomach and duodenum; K57.30 Diverticulosis of large intestine without perforation or abscess without bleeding; K64.8 Other hemorrhoids; K44.9 Diaphragmatic hernia without obstruction or gangrene; K29.70 Gastritis, unspecified, without bleeding; K21.00 Gastro-esophageal reflux disease with esophagitis, without bleeding; F17.290 Nicotine dependence, other tobacco product, uncomplicated; E66.9 Obesity, unspecified; Z68.30 Body mass index [BMI] 30.0-30.9, adult; Z79.899 Other long term (current) drug therapy
CPT/HCPCS: 74019